=== PATIENT | female | born 1930 | race Caucasian/White ===

== ENCOUNTER 2017-09-02 02:48 | Observation (INO) | payer OTHER ==
[2017-09-02] MEDS ORDERED: MORPHINE 4 MG/ML SYR ONE (03:17)
[2017-09-02] MEDS ORDERED: NA CHLORIDE 0.9% 1,000 ML ONE (03:18)
[2017-09-02] MEDS ORDERED: ONDANSETRON 4 MG/2 ML VIAL ONE ×2 (03:18→09:39)
[2017-09-02 03:45] LABS: Absolute Lymphocytes (CBC) 1.8 K/uL (0.7-4.9); Absolute Monocytes 0.7 K/uL (0.1-1.3); Absolute Neutrophil 4.6 K/uL (1.8-8.0); Basophils % 0.9 % (0-1.3); Eosinophils % 2.1 % (0-4.4); Hematocrit 35.1 % (36.0-45.0); Lymphocytes % 23.8 % (15.3-44.8); MCH 29.9 pg (27.0-35.0); MPV 9.6 fL (7.6-11.3); Monocytes % 9.9 % (3.3-12.3); RBC Red Blood Cell Count 3.86 M/uL (3.86-4.86)
[2017-09-02 03:49] LABS: Potassium 3.8 mEq/L (3.6-5.0)
[2017-09-02] MEDS ORDERED: MEPERIDINE HCL 50 MG/ML AMP ONE (04:00)
--- NOTE | 2017-09-02 06:48 | ER ---
Nurse's Notes [facility] Name: Brenna Nelson Age: 87 yrs Sex: Female : 1930 Arrival Date: 09/02/2017 Time: 02:53 Bed 15 Private MD: Diagnosis: Intractable back pain Presentation: 09/02 02:50 Presenting complaint: EMS states: Pt complaining of lower back and lower extremity pain ea x 2 weeks. Pt reported she had called physician a few days ago and he diagnosed her with sciatica and gave her a prescription for the pain patient reported it worked for a little bit but today was intolerable and started getting worse. Transition of care: [facility]. Onset of symptoms was September 02, 2017. Initial Sepsis Screen: Does the patient meet any 2 criteria? No. Patient's initial sepsis screen is negative. Does the patient have a suspected source of infection? No. Patient's initial sepsis screen is negative. Care prior to arrival: None. 02:50 Method Of Arrival: EMS: [facility] ea 02:50 Acuity: MAURILIO 4 ea Triage Assessment: 02:50 General: Appears uncomfortable, Behavior is calm, cooperative, appropriate for age. ea Pain: Complains of pain in left lower back and right lower back Pain radiates to right leg and left leg Pain currently is 9 out of 10 on a pain scale. Quality of pain is described as aching. EENT: No signs and/or symptoms were reported regarding the EENT system. Neuro: Level of Consciousness is awake, alert, obeys commands, Oriented to person, place, time, situation. Cardiovascular: Patient's skin is warm and dry. Respiratory: Breath sounds are clear bilaterally. Respiratory: Airway is patent Respiratory effort is even, unlabored, Respiratory pattern is regular, symmetrical. GI: Abdomen is non-distended, Bowel sounds present X 4 quads. : No signs and/or symptoms were reported regarding the genitourinary system. Derm: Skin is pink, warm \T\ dry. Historical: - Allergies: 03:10 No Known Allergies; ea - Home Meds: 03:10 lisinopril 20 mg Oral tab 1 tab once daily [Active]; Myrbetriq 25 mg oral Tb24 1 tab ea once daily [Active]; gabapentin 100 mg oral cap 2 caps BID [Active]; famotidine 40 mg Oral tab 1 tab nightly [Active]; donepezil 10 mg oral tab 1 tab once daily [Active]; diclofenac sodium 25 mg oral TbEC 1 tab 2 times per day [Active]; - PMHx: 03:10 Hypertension; Irregular heart rate; ea - PSHx: 03:10 None; ea - Immunization history:: Adult Immunizations up to date. - Social history:: Smoking status: Patient/guardian denies using tobacco. Screenin:13 Abuse screen: Denies threats or abuse. Nutritional screening: No deficits noted. ea Tuberculosis screening: No symptoms or risk factors identified. Fall Risk None identified. Assessment: 03:31 Reassessment: Patient and/or family updated on plan of care and expected duration. Pain ea level reassessed. Patient is alert, oriented x 3, equal unlabored respirations, skin warm/dry/pink. Family at bedside. 03:35 Reassessment: RECD REPORT FROM [facility]. 87YO WF P/W BACK PAIN AND RECENT DX OF bp SCIATICA. PT HELD FOR MRI IN THE AM. VS STABLE ON MONITOR. 05:00 Reassessment: PT VS STABLE, NO ACUTE FINDINGS AT THIS TIME. bp 06:10 Reassessment: No changes from previously documented assessment. Patient and/or family bp updated on plan of care and expected duration. Pain level reassessed. Patient is alert, oriented x 3, equal unlabored respirations, skin warm/dry/pink. Patient denies pain at this time. 06:51 Reassessment: YOHANA PATINO, ADMIT PHYSICIAN, AT B/S. PT TBA FOR PAIN CONTROL AND IV bp MEDICATIONS. 07:21 Reassessment: Patient appears in no apparent distress at this time. Patient and/or hb family updated on plan of care and expected duration. Pain level reassessed. Pt resting with eyes closed, easily arouses to verbal stimuli. Admission ordered, awaiting room assignment at this time. 08:10 Reassessment: Patient appears in no apparent distress at this time. Patient and/or hb family updated on plan of care and expected duration. Pain level reassessed. Patient is alert, oriented x 3, equal unlabored respirations, skin warm/dry/pink. 08:49 Reassessment: Pt transported to MRI via wheelchair with tech. hb 09:00 Reassessment: see [facility] charting. hb Vital Signs: 02:50 BP 161 / 94; Pulse 71; Resp 18; Temp 98.3(O); Pulse Ox 98% on R/A; Weight 68.49 kg; ea Height 5 ft. 7 in. (170.18 cm); Pain 9/10; 03:40 BP 136 / 52; Pulse 60; Resp 16; Pulse Ox 98% ; bp 05:00 BP 104 / 51; Pulse 56; Resp 14; Pulse Ox 97% ; bp 06:11 BP 125 / 51; Pulse 56; Resp 14; Pulse Ox 96% ; bp 07:15 BP 115 / 47; Pulse 56; Resp 15; Pulse Ox 97% on R/A; hb 02:50 Body Mass Index 23.65 (68.49 kg, 170.18 cm) ea ED Course: 02:50 Patient has correct armband on for positive identification. Bed in low position. Call ea light in reach. Side rails up X2. 02:50 Arm band placed on right wrist. ea 02:53 Patient arrived in ED. rg2 02:53 Paul Guadalupe MD is Attending Physician. pkl 02:56 Alma Weiss RN is Primary Nurse. ea 02:59 Triage completed. ea 03:25 Inserted saline lock: 20 gauge in right forearm, using aseptic technique. Blood oe collected. 06:46 Barber Guadalupe MD is Hospitalizing Provider. pkl 09:06 Patient moved to MRI via wheelchair. lc 09:18 Patient moved back from MRI. lc 10:48 No provider procedures requiring assistance completed. Patient admitted, IV remains in hb place. Administered Medications: 03:30 Drug: NS 0.9% 1000 ml Route: IV; Rate: 100 ml/hr; Site: right forearm; ea 03:30 Drug: morphine 4 mg Route: IVP; Site: right forearm; ea 03:58 Follow up: Response: No adverse reaction; Pain is decreased bp 03:31 Drug: Zofran 4 mg Route: IVP; Site: right forearm; ea 03:58 Follow up: Response: No adverse reaction bp 04:00 Drug: Demerol 50 mg Route: IVP; Site: right forearm; bp 05:04 Follow up: Response: Pain is decreased bp Outcome: 06:47 Decision to Hospitalize by Provider. pkl 10:48 Admitted to Med/surg accompanied by nurse, family with patient, via stretcher, room hb 417, with chart, Report called to BETH Cadena 10:48 Condition: stable 10:48 Instructed on the need for admit, Demonstrated understanding of instructions. 10:49 Patient left the ED. Signatures: Lazaro Taylor rg2 Paul Guadalupe MD MD pkl Compean, Lorena lc Baxter, Heather, RN RN Tavo Cam Elena, RN RN Rickie Shafer RN RN bp
--- NOTE | 2017-09-02 06:48 | EDPHYS ---
Physician Documentation [facility] Name: Brenna Nelson Age: 87 yrs Sex: Female : 1930 Arrival Date: 09/02/2017 Time: 02:53 Bed 15 Private MD: ED Physician Paul Guadalupe HPI: 09/02 03:14 This 87 yrs old Female presents to ER via EMS with unknown complaint. pkl 03:14 The patient presents with pain that is acute. The symptoms are located in the low back. pkl Onset: The symptoms/episode began/occurred 2 week(s) ago, and became worse 2 day(s) ago. The pain radiates to the left leg and right leg. Historical: - Allergies: 03:10 No Known Allergies; ea - Home Meds: 03:10 lisinopril 20 mg Oral tab 1 tab once daily [Active]; Myrbetriq 25 mg oral Tb24 1 tab ea once daily [Active]; gabapentin 100 mg oral cap 2 caps BID [Active]; famotidine 40 mg Oral tab 1 tab nightly [Active]; donepezil 10 mg oral tab 1 tab once daily [Active]; diclofenac sodium 25 mg oral TbEC 1 tab 2 times per day [Active]; - PMHx: 03:10 Hypertension; Irregular heart rate; ea - PSHx: 03:10 None; ea - Immunization history:: Adult Immunizations up to date. - Social history:: Smoking status: Patient/guardian denies using tobacco. ROS: 03:14 Eyes: Negative for injury, pain, redness, and discharge, ENT: Negative for injury, pkl pain, and discharge, Neck: Negative for injury, pain, and swelling, Cardiovascular: Negative for chest pain, palpitations, and edema, Respiratory: Negative for shortness of breath, cough, wheezing, and pleuritic chest pain, Abdomen/GI: Negative for abdominal pain, nausea, vomiting, diarrhea, and constipation. 03:14 Back: Positive for pain at rest, of the lower back. 03:14 : Negative for urinary symptoms. 03:14 MS/extremity: Negative for acute changes. 03:14 Skin: Negative for rash. 03:14 Neuro: Negative for altered mental status. Exam: 03:14 Head/Face: Normocephalic, atraumatic. Eyes: Pupils equal round and reactive to light, pkl extra-ocular motions intact. Lids and lashes normal. Conjunctiva and sclera are non-icteric and not injected. Cornea within normal limits. Periorbital areas with no swelling, redness, or edema. ENT: Nares patent. No nasal discharge, no septal abnormalities noted. Tympanic membranes are normal and external auditory canals are clear. Oropharynx with no redness, swelling, or masses, exudates, or evidence of obstruction, uvula midline. Mucous membranes moist. Neck: Trachea midline, no thyromegaly or masses palpated, and no cervical lymphadenopathy. Supple, full range of motion without nuchal rigidity, or vertebral point tenderness. No Meningismus. Chest/axilla: Normal chest wall appearance and motion. Nontender with no deformity. No lesions are appreciated. Cardiovascular: Regular rate and rhythm with a normal S1 and S2. No gallops, murmurs, or rubs. Normal PMI, no JVD. No pulse deficits. Respiratory: Lungs have equal breath sounds bilaterally, clear to auscultation and percussion. No rales, rhonchi or wheezes noted. No increased work of breathing, no retractions or nasal flaring. Abdomen/GI: Soft, non-tender, with normal bowel sounds. No distension or tympany. No guarding or rebound. No evidence of tenderness throughout. 03:14 Back: pain, that is moderate, of the lower back, Straight leg raises: pain bilaterally. 03:14 : Exam negative for acute changes. 03:14 Musculoskeletal/extremity: Exam is negative for acute changes. 03:14 Skin: Exam negative for rash. 03:14 Neuro: Orientation: is normal, Mentation: is normal, Cranial nerves: grossly normal, Motor: is normal. Vital Signs: 02:50 BP 161 / 94; Pulse 71; Resp 18; Temp 98.3(O); Pulse Ox 98% on R/A; Weight 68.49 kg; ea Height 5 ft. 7 in. (170.18 cm); Pain 9/10; 03:40 BP 136 / 52; Pulse 60; Resp 16; Pulse Ox 98% ; bp 05:00 BP 104 / 51; Pulse 56; Resp 14; Pulse Ox 97% ; bp 06:11 BP 125 / 51; Pulse 56; Resp 14; Pulse Ox 96% ; bp 07:15 BP 115 / 47; Pulse 56; Resp 15; Pulse Ox 97% on R/A; hb 02:50 Body Mass Index 23.65 (68.49 kg, 170.18 cm) jorden MDM: 02:54 Patient medically screened. pkl 06:46 Data reviewed: vital signs, nurses notes, lab test result(s). pkl 09/02 03:12 Order name: CBC with Diff; Complete Time: 04:58 pkl 09/02 03:12 Order name: Chem 7; Complete Time: 03:51 pkl 09/02 10:45 Order name: MRI EDMS Administered Medications: 03:30 Drug: NS 0.9% 1000 ml Route: IV; Rate: 100 ml/hr; Site: right forearm; ea 03:30 Drug: morphine 4 mg Route: IVP; Site: right forearm; ea 03:58 Follow up: Response: No adverse reaction; Pain is decreased bp 03:31 Drug: Zofran 4 mg Route: IVP; Site: right forearm; ea 03:58 Follow up: Response: No adverse reaction bp 04:00 Drug: Demerol 50 mg Route: IVP; Site: right forearm; bp 05:04 Follow up: Response: Pain is decreased bp Disposition: 09/02/17 06:47 Hospitalization ordered by Barber Guadalupe for Observation. Preliminary diagnosis is Intractable back pain. - Bed requested for Telemetry/MedSurg (observation). - Status is Observation. hb - Condition is Stable. - Problem is new. - Symptoms have improved. UTI on Admission? No Signatures: Dispatcher [employer] EDVA LaliPeyton randall Paul Porter MD MD pkJennifer Mcginnis, BETH RN Alma Weiss RN RN Rickie Shafer RN RN bp Corrections: (The following items were deleted from the chart) 09:47 06:47 Hospitalization Ordered by Barber Guadalupe MD for Observation. Preliminary diagnosis bd is Intractable back pain. Bed requested for Telemetry/MedSurg (observation). Status is Observation. Condition is Stable. Problem is new. Symptoms have improved. UTI on Admission? No. pkl 10:49 09:47 09/02/2017 06:47 Hospitalization Ordered by Barber Guadalupe MD for Observation. hb Preliminary diagnosis is Intractable back pain. Bed requested for Telemetry/MedSurg (observation). Status is Observation. Condition is Stable. Problem is new. Symptoms have improved. UTI on Admission? No. bd
[2017-09-02] MEDS ORDERED: ONDANSETRON 4 MG/2 ML VIAL IV PRN (07:58)
[2017-09-02] MEDS ORDERED: MEPERIDINE HCL 25 MG/0.5 ML IV PRN (07:58)
[2017-09-02] MEDS: LISINOPRIL 20 MG TAB PO SCH (09:00)
[2017-09-02] MEDS: GABAPENTIN 300 MG CAP PO SCH ×2 (09:00→21:14)
[2017-09-02] MEDS: ENOXAPARIN 40 MG/0.4 ML SQ SCH (09:00)
[2017-09-02] MEDS: METHYLPREDNISOLONE 40 MG INJ IV SCH ×4 (09:00→23:51)
[2017-09-02] MEDS ORDERED: GABAPENTIN 300 MG CAP ONE (09:37)
[2017-09-02] MEDS ORDERED: MEPERIDINE HCL 25 MG/0.5 ML ONE (09:38)
[2017-09-02] MEDS ORDERED: LISINOPRIL 20 MG TAB ONE (09:38)
[2017-09-02] MEDS ORDERED: METHYLPREDNISOLONE 40 MG INJ ONE (09:39)
[2017-09-02] MEDS ORDERED: ENOXAPARIN 40 MG/0.4 ML SQ ONE (09:39)
[2017-09-02 09:52] VITALS: BMI 23.6
--- NOTE | 2017-09-02 10:45 | RAD REPORT ---
EXAM DESCRIPTION: MRI - Lumbar Spine [facility] - 09/02/2017 9:18 am CLINICAL HISTORY: Recent fall, back pain with bilateral lower extremity radiculopathy COMPARISON: None. TECHNIQUE: Sagittal T1-weighted, T2-weighted and T2-STIR weighted sequences were obtained. Axial T1 -weighted and heavily T2-weighted sequenceswere obtained through the lumbar disc levels. FINDINGS: No acute compression fracture changes are identified. Active degenerative marrow edema is present abutting the endplates at the L3-4 disc space. Schmorl's nodes are seen in the endplates at t his level. There is anterior subluxation of L3 on L4 measuring 5 mm. This is secondary to severe face t joint degenerative change. No pars defect identified at this level. Vertebral body alignment is oth erwise normal. No other significant or suspicious marrow pattern. No paraspinal masses. Conus is normal with no clumping or thickening of the cauda equina. T12-L1 level: Disc is desiccated. No other significant finding. L1-2 level: Minimal desiccation with no other significant finding. L2-3 level: Disc desiccation with no other significant finding. L3-4 level: Prominent pseudo bulge of disc material created by the L3 subluxation. Advanced facet sania nt degenerative changes are present and prominent ligamentous thickening seen. There is anterior and posterolateral encroachment the thecal sac. Spinal stenosis to 5 mm is present from these combined ef fects. Moderate L4 lateral recess stenosis also present. Disc bulge causes bilateral foraminal stenos is. Only a small amount of perineural fat is still present. L4-5 level: Disc desiccation without central canal herniation or significant disc bulge. Foraminal di sc bulge is mild. Facet degenerative changes and ligamentous thickening are present. No central spina l stenosis. Minimal L5 lateral recess stenosis. L5-S1 level: No disc bulge or herniation. Mild facet degenerative change. IMPRESSION: L3-4 spinal stenosis to 5 mm with L4 lateral recess stenosis and bilateral foraminal isabel nosis. L3-4 changes are secondary to severe facet joint degenerative change with resulting L3 subluxation al fauzia with prominent ligamentous thickening and bulging of disc material. Degenerative change elsewhere is minimal and does not cause any measurable canal or foramen stenosis.
[2017-09-02] MEDS ORDERED: TRAMADOL HCL 50 MG TAB PO PRN (11:13)
[2017-09-03 02:48] VITALS: O2SAT 96
[2017-09-03] MEDS: METHYLPREDNISOLONE 40 MG INJ IV SCH (06:11)
--- NOTE | 2017-09-03 07:43 | HP ---
Date of Admission: 09/02/2017 Chief Complaint: Back pain, leg pain. History Of Present Illness: Ms. Nelson is a very pleasant 87-year-old female patient who came to see me on 08/24/2017, with some complaints of lower back pain radiating to left leg and this has b een going on intermittently lately. No recent fall or injury. The patient was started on gabapentin for this lumbar radiculopathy problem 100 mg twice a day and earlier this week dose was increased to 200 mg twice a day because her pain was not improving. Last night, her pain got a lot worse with ba ck pain and bilateral leg pain radiating from lower back to the legs to the extent that she had diffi culty even walking, so she came in through emergency room. After she was evaluated in the ER, the ER physician contacted me early this morning, requesting admission to hospital. The patient initially received morphine in the emergency room, which did not help her at all. Subsequently, she received D emerol and that did help her to provide some pain relief, so when I saw her in the emergency room thi s morning, she was comfortable. Denies any tingling or numbness in legs. Allergies: NO KNOWN ALLERGIES. Medications: Caltrate plus D twice a day, diclofenac 25 mg 2 times a day as needed for back pain, do nepezil 10 mg daily, famotidine 40 mg daily, gabapentin 200 mg twice a day, lisinopril 20 mg daily, m ultivitamin daily, Myrbetriq 25 mg p.o. daily, Travatan eyedrops, fish oil, vitamin D, vitamin C, and vitamin E. Review of Systems: Musculoskeletal: As mentioned above. All other systems reviewed and negative. Past Medical History: Significant for lumbar radiculopathy, hypertension, hyperlipidemia, gastroesop hageal reflux disease, diverticulosis, osteoporosis, osteoarthritis at multiple sites. Past Surgical History: Hysterectomy, bladder suspension. Family History: Significant for cancer of esophagus. Social History: Negative for smoking or alcohol use. Physical Examination: Vital Signs: Temperature when she first came in 98.3, pulse 71, respiratory rate 18, blood pressure 161/94. Height 5 feet 7 inches, weight 150 pounds. General: Awake, alert, oriented, not in distress. HEENT: Head atraumatic, normocephalic. Conjunctivae nonerythematous. Sclerae white. Mouth, no thr ush or edema noted. Ears/Nose, no mass, lesion, discharge noted. Neck: Supple. No JVD, lymph nodes, bruit, thyromegaly noted. Lungs: Bilateral good equal air entry. Clear to auscultation. No rhonchi. No rales. Heart: Normal heart sounds, no murmur or gallop. Abdomen: Soft, bowel sounds normal. No guarding, rigidity, tenderness, mass, hepatosplenomegaly, dis tention, or bruit noted. Extremities: No leg edema. No calf tenderness. Skin: No rash, ulcer, cellulitis. Lymphatics: No lymph node enlargement in neck, supraclavicular, infraclavicular region. Neuro: Straight leg raising sign positive in left leg. Chest: Unremarkable. External Genitalia: Deferred. Rectal: Deferred. Laboratory Data: White count 7.3, hemoglobin 11.5, platelets 207. Sodium 139, potassium 3.8, chlori de 105, bicarb 27, BUN 20, creatinine 0.77, glucose 94. MRI of lumbosacral spine without contrast shows multiple area of bulging disk, degenerative joint dis ease, and spinal stenosis at L3-4 level, bilateral foraminal stenosis. Impression: 1.Lumbar spinal stenosis. 2.Lumbar radiculopathy. 3.Osteoarthritis on multiple sites. 4.Osteoporosis, senile. 5.Hypertension. 6.Hyperlipidemia. 7.Gastroesophageal reflux disease. Plan: Admit the patient to hospital for observation. We will go ahead and continue her antihyperten sive medication. Consult Physical Therapy to help ambulate the patient. Fall precaution was ordered . DVT prophylaxis was ordered using Lovenox. We will increase dose of gabapentin and give her 300 m g 2 times a day. Give pain medication per order. We will start her on IV steroid per order and I wi ll see her tomorrow for followup, possible discharge to go home tomorrow. I did call the patient's rodolfo traylor and discussed details with her about MRI results and my recommendation is that the patient sh ould consider outpatient physical therapy and she should get evaluation and recommendation from a delma may in [place] on outpatient basis and the patient's daughter was advised to take copy of MRI f ilm and result with her and my office will go ahead and facilitate referral process to see neurosurge on in [place] area. Possible discharge to go home tomorrow. JOSE/MODL Voice ID: [id number]
[2017-09-03 08:08] VITALS: BP 140/58; TEMP 98.3
[2017-09-03] MEDS: GABAPENTIN 300 MG CAP PO SCH (08:32)
[2017-09-03] MEDS: LISINOPRIL 20 MG TAB PO SCH (08:32)
[2017-09-03] MEDS: ENOXAPARIN 40 MG/0.4 ML SQ SCH (08:32)
--- NOTE | 2017-09-04 18:42 | DS ---
Date of Discharge: 09/03/2017 Disposition: Discharged to go home. Physical Examination: HEENT: Unremarkable. Lungs: Clear to auscultation. Heart: Sounds normal. Abdomen: Soft, bowel sounds normal. No guarding, rigidity, tenderness, or distention. Extremities: No leg edema. Discharge Medications: Continue all prior home medication except stop gabapentin 100 mg dose and sta rt gabapentin 300 mg by mouth 2 times a day and start prednisone 10 mg tablet, the patient to take 2 tablets daily for 4 days, then 1 tablet daily for 4 days, then half tablet daily for 4 days, then sto p. Followup: Follow up at my office in 2 weeks. Hospital Course: An 87-year-old female patient, admitted to the hospital with lower back pain as wel l as pain in her both legs. Please see dictated H and P for more information. The patient came into the emergency room yesterday. She was admitted to the hospital. She was started on IV steroid. MR I of the lumbosacral spine done yesterday and that showed significant degenerative joint disease invo lving lower lumbar spine region, along with that multiple bulging disks and lumbar spinal stenosis no liseth. Her condition has improved. She is ambulating well. Pain in her leg has resolved. Back pain has improved. This morning, when I saw her, she was feeling fine, had no complaints. Her 2 daughter s were present with her at bedside. I did explain it to the patient regarding her MRI results and re commended that she should follow up with neurosurgeon in [place] area on outpatient basis and she doug uld take her MRI film as well as report with her at the time of this appointment and my office emily goyal has initiated this referral process for her to go see Dr. Julio Olson. She was advised to avoid any unnecessary bending, twisting, or lifting any heavy objects. She was encouraged to use walker a ll the time while ambulating at the assisted care facility where she lives. We will also refer her f or outpatient physical therapy and all these details and plan of treatment discussed with the patient and her 2 daughters this morning. Final Diagnoses: 1.Lumbar spinal stenosis. 2.Lumbar radiculopathy. 3.Osteoarthritis, multiple sites. 4.Osteoporosis, senile. 5.Hypertension. 6.Hyperlipidemia. 7.Gastroesophageal reflux disease. JOSE/MODL Voice ID: [id number] Report ID: [id number]
== END 2017-09-03 08:57 | disposition home or self-care (01) ==
LOC: ER 02:48 → ERHOLD 07:27 → 4TH 10:20
PROVIDERS: ADMIT Internal Medicine; ATTEND Internal Medicine
DX: M48.061 Spinal stenosis, lumbar region without neurogenic claudication (principal); M54.16 Radiculopathy, lumbar region; M19.90 Unspecified osteoarthritis, unspecified site; M81.0 Age-related osteoporosis without current pathological fracture; I10 Essential (primary) hypertension; E78.5 Hyperlipidemia, unspecified; K21.9 Gastro-esophageal reflux disease without esophagitis
CPT/HCPCS: 36415; 72148; 80048; 85025; 96374; 96375; 97163; 99285; G0378 ×2; J1650 ×2; J2175 ×2; J2405 ×2; J2920 ×5; J7030

== ENCOUNTER 2018-02-04 10:49 | Observation (INO) | payer OTHER ==
--- OUTSIDE RECORDS SUMMARY | 2018-02-04 11:15 | XMS REPORT | Clinical Summary ---
:1930 Author Organization [facility] Address [address] [place] [address] Care Team Providers Name Role Phone Asked, No Pcp Primary Care Provider Unavailable Allergies No Known Allergies Current Medications Prescription Sig. Disp. Refills Start Date End Date Status mirabegron 25 mg Take by mouth. Active tablet extended release 24 hr lisinopril Take 20 mg by Active (PRINIVIL,ZESTRIL) 20 mouth daily. mg tablet memantine (NAMENDA) 5 Take 5 mg by Active MG tablet mouth 2 (two) times a day. donepezil (ARICEPT) Take 10 mg by Active 10 MG tablet mouth nightly. gabapentin Take 300 mg by Active (NEURONTIN) 300 mg mouth 3 (three) capsule times a day. timolol (TIMOPTIC) 1 drop 2 (two) 10/15/2017 Active 0.5 % ophthalmic times a day. solution dexamethasone Take 1 tablet 7 tablet 0 10/16/2017 10/23/2017 (DECADRON) 0.75 MG (0.75 mg total) tablet by mouth daily with breakfast for 7 days. acetaminophen-codeine Take 1-2 tablets 60 tablet 0 10/16/2017 11/15/2017 (TYLENOL WITH CODEINE by mouth every 4 #3) 300-30 mg per (four) hours as tablet needed (pain) for up to 30 days. Active Problems Problem Noted Date S/P lumbar laminectomy 10/15/2017 Encounters Date Type Specialty Care Team Description 10/15/2017 - Hospital Encounter Neurosurgery Whitney S/P lumbar laminectomy ; 10/16/2017 Julio Morrell MD Lumbar stenosis with neurogenic claudication 10/15/2017 Anesthesia Event General Surgery Mary Zaidi MD 10/15/2017 Ancillary Orders Radiology Whitney S/Dameon lumbar Julio Morrell MD laminectomy 10/15/2017 Procedure Pass General Surgery 10/15/2017 Surgery General Surgery Whitney, LUMBAR LAMINECTOMY Julio Morrell MD FOR NERVE ROOT AND CAUDA EQUINA DECOMPRESSION BILATERAL L3-L4 10/05/2017 Pre-Admit Testing Pre-Admission Whitney, Preoperative testing Appointment Testing Julio Morrell MD (Primary Dx) after 02/03/2017 Social History Tobacco Use Types Packs/Day Years Used Date Never Smoker Smokeless Tobacco: Never Used Alcohol Use Drinks/Week oz/Week Comments No Sex Assigned at Date Recorded Not on file Last Filed Vital Signs Vital Sign Reading Time Taken Blood Pressure 112/62 10/16/2017 7:58 AM CDT Pulse 56 10/16/2017 7:58 AM CDT Temperature 36.4 C (97.6 F) 10/16/2017 7:58 AM CDT Respiratory Rate 17 10/16/2017 7:58 AM CDT Oxygen Saturation 94% 10/16/2017 7:58 AM CDT Inhaled Oxygen Concentration - - Weight 82.1 kg (181 lb) 10/15/2017 9:09 AM CDT Height 167.6 cm (5' 6") 10/15/2017 9:09 AM CDT Body Mass Index 29.21 10/15/2017 9:09 AM CDT Plan of Treatment Health Maintenance Due Date Last Done Comments SHINGRIX VACCINE (#1) 1982 ZOSTER VACCINE 1992 PNEUMOCOCCAL POLYSACCHARIDE VACCINE AGE 65 AND OVER 1997 PNEUMOCOCCAL-13 1997 INFLUENZA VACCINE 11/25/2017 Procedures Procedure Name Priority Date/Time Associated Diagnosis Comments SURGICAL PATHOLOGY Routine 10/15/2017 3:00 Results for this REQUEST PM CDT procedure are in the results section. LAMINECTOMY, LUMBAR 10/15/2017 2:00 Lumbar stenosis with PM CDT neurogenic claudication Case Notes "PATIENT COMING FROM ALF, ? NAME", POSSIBLE EXTENDED STAY Special Needs "PATIENT COMING FROM ALF, ? NAME", POSSIBLE EXTENDED STAY XR LUMBAR SPINE 1 VW Routine 10/15/2017 1:24 PM S/P lumbar Results for this CDT laminectomy procedure are in the results section. XR LUMBAR SPINE 1 VW Routine 10/15/2017 1:10 PM S/P lumbar Results for this CDT laminectomy procedure are in the results section. RI AN ELECTIVE Routine 10/15/2017 12:55 PM ENDOTRACHEAL AIRWAY CDT Procedure Note - Mary Zaidi MD - 10/15/2017 12:55 PM CDT Airway Date/Time: 10/15/2017 12:33 PM Performed by: MARY ZAIDI Authorized by: MARY ZAIDI Location: OR Urgency: Elective Difficult Airway: No Preoxygenated with 100% O2: Yes C-spine Precautions Maintained Throughout: No Mask Ventilation: Easy mask Final Airway Type: Endotracheal airway Final Endotracheal Airway: ETT Cuffed: Yes Technique Used: Direct laryngoscopy Devices/Methods Used in Placement: Intubating stylet Insertion Site: Oral Blade Type: Ibanez Laryngoscope Blade/Videolaryngoscope Blade Size: 2 ETT Size (mm): 6.5 Cuff at minimum occlusion pressure: Yes Measured from: Teeth ETT to Teeth (cm): 21 Placement Verified by: CO2 detection, direct visualization and equal breath sounds Laryngoscopic view: Grade I - full view of glottis Rapid Sequence Induction (RSI): No Modified RSI: No Number of Attempts at Approach: 1 Lips and teeth unchanged, soft bite block ECG PRE/POST OP Routine 10/05/2017 12:33 PM Preoperative testing Results for this CDT procedure are in the results section. ZZESTIMATED GFR Routine 10/05/2017 12:09 PM Results for this CDT procedure are in the results section. CBC HEMOGRAM Routine 10/05/2017 12:09 PM Preoperative testing Results for this CDT procedure are in the results section. BASIC METABOLIC Routine 10/05/2017 12:09 PM Preoperative testing Results for this PANEL CDT procedure are in the results section. after 02/03/2017 Results Surgical pathology request (10/15/2017 3:00 PM) [facility] DEPARTMENT OF PATHOLOGY AND GENOMIC MEDICINE Surgical pathology report See link below for PDF [facility] DEPARTMENT OF Lab Report PATHOLOGY AND GENOMIC MEDICINE Result status This is Final Report to [facility] DEPARTMENT OF [id number] PATHOLOGY AND GENOMIC MEDICINE Performing Organization Address City/State/Zipcode Phone Number [facility] DEPARTMENT OF PATHOLOGY AND [address] [place] [address] GENOMIC MEDICINE XR Lumbar Spine 1 Vw (10/15/2017 1:24 PM)Only the most recent of2 resultswithin the time period is included. Narrative Performed At EXAMINATION: XR LUMBAR SPINE 1 VW [facility] CLINICAL HISTORY: Z98.890 Other specified postprocedural states COMPARISON:1303 hours same date IMPRESSION: Single lateral intraoperative radiograph in bone and soft tissue filters demonstrates posterior approach surgical instruments centered at the L3-L4 level. [id number] Procedure Note Interface, Radiology Results Incoming - 10/15/2017 4:32 PM CDT EXAMINATION: XR LUMBAR SPINE 1 VW CLINICAL HISTORY: Z98.890 Other specified postprocedural states COMPARISON: 1303 hours same date IMPRESSION: Single lateral intraoperative radiograph in bone and soft tissue filters demonstrates posterior approach surgical instruments centered at the L3-L4 level. [id number] Performing Organization Address [facility] Phone Number [facility] [address] [place] [address] ECG Pre/Post Op (10/05/2017 12:33 PM) Ventricular rate 51 [facility] MUSE Atrial rate 51 [facility] MUSE RI interval 206 [facility] MUSE QRSD interval 84 [facility] MUSE QT interval 456 [facility] MUSE QTC interval 420 [facility] MUSE P axis 1 77 [facility] MUSE QRS axis 1 24 [facility] MUSE T wave axis 29 [facility] MUSE EKG impression Sinus bradycardia with premature atrial [facility] MUSE complexes-Nonspecific ST abnormality-Abnormal ECG-No previous ECGs available- Performing Organization Address [facility] Phone Number [facility] [address] [place] [address] Estimated GFR (10/05/2017 12:09 PM) GFR Non Af Amer 68 mL/min/1.73 m2 [facility] DEPARTMENT OF PATHOLOGY AND GENOMIC MEDICINE GFR Af Amer 83 mL/min/1.73 m2 [facility] DEPARTMENT OF Comment: PATHOLOGY AND GENOMIC Chronic kidney disease: <60 mL/min/1.73m2 MEDICINE Kidney failure: <15 mL/min/1.73m2 The estimated GFR is calculated from the IDMS-traceable Modification of Diet in Renal Disease Equation. The accuracy of the calculation is poor when the creatinine is normal. Calculated values >90 mL/min/1.73m2 are not reported. This equation has not been validated in children (<18 years), women, the elderly (>70 years), or ethnic groups other than Caucasians and Americans. Specimen Plasma specimen Performing Organization Address [facility]/State/Zipcode Phone Number [facility] DEPARTMENT OF PATHOLOGY AND [address] [place] [phone] [employer] [facility] CBC hemogram (10/05/2017 12:09 PM) WBC 5.24 4.50 - 11.00 k/uL [facility] DEPARTMENT OF PATHOLOGY AND GENOMIC MEDICINE RBC 4.02 (L) 4.20 - 5.50 m/uL [facility] DEPARTMENT OF PATHOLOGY AND GENOMIC MEDICINE HGB 12.3 12.0 - 16.0 g/dL [facility] DEPARTMENT OF PATHOLOGY AND GENOMIC MEDICINE HCT 37.4 37.0 - 47.0 % [facility] DEPARTMENT OF PATHOLOGY AND GENOMIC MEDICINE MCV 93.0 82.0 - 100.0 fL [facility] DEPARTMENT OF PATHOLOGY AND GENOMIC MEDICINE MCH 30.6 27.0 - 34.0 pg [facility] DEPARTMENT OF PATHOLOGY AND GENOMIC MEDICINE MCHC 32.9 31.0 - 37.0 g/dL [facility] DEPARTMENT OF PATHOLOGY AND GENOMIC MEDICINE RDW - SD 46.9 37.0 - 55.0 fL [facility] DEPARTMENT OF PATHOLOGY AND GENOMIC MEDICINE MPV 11.0 8.8 - 13.2 fL [facility] DEPARTMENT OF PATHOLOGY AND GENOMIC MEDICINE Platelet count 189 150 - 400 k/uL [facility] DEPARTMENT OF PATHOLOGY AND GENOMIC MEDICINE Nucleated RBC 0.00 /100 WBC [facility] DEPARTMENT OF PATHOLOGY AND GENOMIC MEDICINE Specimen Blood Performing Organization Address City/State/[facility] Phone Number [facility] DEPARTMENT OF PATHOLOGY AND [address] [place] [phone] [employer] Basic metabolic panel (10/05/2017 12:09 PM) Sodium 142 135 - 148 mEq/L [facility] DEPARTMENT OF PATHOLOGY AND GENOMIC MEDICINE Potassium 3.9 3.5 - 5.0 mEq/L [facility] DEPARTMENT OF PATHOLOGY AND GENOMIC MEDICINE Chloride 103 98 - 112 mEq/L [facility] DEPARTMENT OF PATHOLOGY AND GENOMIC MEDICINE CO2 27 24 - 31 mEq/L [facility] DEPARTMENT OF PATHOLOGY AND GENOMIC MEDICINE Anion gap 12@ANIO 7 - 15 mEq/L [facility] DEPARTMENT OF PATHOLOGY AND GENOMIC MEDICINE BUN 17 8 - 23 mg/dL [facility] DEPARTMENT OF PATHOLOGY AND GENOMIC MEDICINE Creatinine 0.8 0.5 - 0.9 mg/dL [facility] DEPARTMENT OF PATHOLOGY AND GENOMIC MEDICINE Glucose 75 65 - 99 mg/dL [facility] DEPARTMENT OF PATHOLOGY AND GENOMIC MEDICINE Calcium 9.0 8.8 - 10.2 mg/dL [facility] DEPARTMENT OF PATHOLOGY AND GENOMIC MEDICINE Specimen Plasma specimen Performing Organization Address City/[facility] Phone Number [facility] DEPARTMENT OF PATHOLOGY AND [address] [place] [phone] GENOMIC MEDICINE after 02/03/2017 Insurance Payer Benefit Plan / Group Subscriber ID Type Phone Address HUMANA HUMANA HMO/POS/EPO/OPEN ACCESS xxxxxxxxx HMO HUMANA MEDICARE HUMANA MEDICARE PPO/PFFS/ERS MCR xxxxxxxxx PPO [phone] [id number] [place] [address]
[2018-02-04] MEDS ORDERED: ACETAMINOPHEN 500 MG TAB PO PRN (11:32)
[2018-02-04] MEDS ORDERED: GUAIFENESIN/DM 5 ML UCUP PO PRN (11:32)
[2018-02-04 12:25] LABS: Absolute Lymphocytes (CBC) 0.6 K/uL (0.7-4.9); Absolute Monocytes 0.7 K/uL (0.1-1.3); Absolute Neutrophil 7.7 K/uL (1.8-8.0); Basophils % 0.5 % (0-1.3); Eosinophils % 0.7 % (0-4.4); Hematocrit 39.9 % (36.0-45.0); Lymphocytes % 6.8 % (15.3-44.8); MCH 31.2 pg (27.0-35.0); MCV 90.3 fL (80-100); MPV 8.9 fL (7.6-11.3); Monocytes % 8.1 % (3.3-12.3); RBC Red Blood Cell Count 4.41 M/uL (3.86-4.86)
[2018-02-04 12:40] LABS: Albumin 3.2 g/dL (3.4-5.0); Bilirubin Total 0.7 mg/dL (0.2-1.0); Potassium 3.9 mmol/L (3.5-5.1); Protein, Total 6.7 g/dL (6.4-8.2)
--- NOTE | 2018-02-04 12:48 | RAD REPORT ---
EXAM DESCRIPTION: RAD - Chest Single View - 02/04/2018 12:38 pm CLINICAL HISTORY: Pneumonia COMPARISON: December 2016 TECHNIQUE: AP portable chest image was obtained 1222 hour . FINDINGS: Lungs are fibrotic similar to comparison. No superimposed failure, infiltrate or mass. Hea rt and vasculature are normal. No measurable pleural effusion and no pneumothorax. No acute bony abno rmality seen. No acute aortic findings suspected. IMPRESSION: Stable fibrotic lung pattern from 1 year earlier. No acute finding seen.
[2018-02-04] MEDS: NA CHLORIDE 0.9% 1,000 ML IV SCH (12:49)
[2018-02-04] MEDS: CEFTRIAXONE/SWI 1gm 1 GM/10 ML SYR IV SCH (12:49)
[2018-02-04 12:52] VITALS: BMI 23.6
[2018-02-04] MEDS ORDERED: CEFTRIAXONE 1 GM/NS 50 ML 1 GM/50 ML BAG IV SCH (13:00)
[2018-02-04 13:22] VITALS: O2SAT 99
[2018-02-04] MEDS: ALBUTEROL 2.5 MG/3 ML NEB SOL NEB SCH ×2 (13:56→20:00)
[2018-02-04] MEDS ORDERED: POTASSIUM CL SA 10 MEQ TAB PO ONE (14:00)
[2018-02-04] MEDS: AZITHROMYCIN IV 500 MG in NA CHLORIDE 0.9% 250 ML IVPB SCH (14:28)
[2018-02-04] MEDS ORDERED: ENOXAPARIN 40 MG/0.4 ML SQ SCH (17:00)
--- NOTE | 2018-02-04 20:28 | RAD REPORT ---
EXAM DESCRIPTION: CT - Thorax Wo Con - 02/04/2018 6:18 pm CLINICAL HISTORY: Pneumonia COMPARISON: Chest film February 04 TECHNIQUE: Axial 5 mm thick images of the chest were obtained without IV contrast. All CT scans are performed using dose optimization technique as appropriate and may include automated exposure control or mA/KV adjustment according to patient size. FINDINGS: Posterior right apex scarring changes are present. No airspace consolidations seen. Minima l interstitial stranding is present in the lower lung herrera. No endobronchial lesion. There is some minimal bronchial wall thickening present. No pleural thickening or pleural effusion. No pneumothorax . No abnormal mediastinal or hilar masses or lymphadenopathy seen. Granulomatous calcifications are pre sent. No acute aortic or pulmonary artery finding suspected on noncontrast imaging. No pericardial th ickening or effusion. No chest wall mass or abnormal axillary lymphadenopathy. IMPRESSION: Scattered interstitial fibrotic changes are present. No large mass and no consolidation to suspect bacterial pneumonia. Patient has fibrotic lung pattern that was not significantly different on plain film. The lung base i nterstitial and bronchial changes could represent a mild viral infiltrate.
[2018-02-05] MEDS: CEFTRIAXONE/SWI 1gm 1 GM/10 ML SYR IV SCH ×2 (01:33→09:00)
[2018-02-05] MEDS: NA CHLORIDE 0.9% 1,000 ML IV SCH ×2 (01:34→10:21)
[2018-02-05] MEDS: ALBUTEROL 2.5 MG/3 ML NEB SOL NEB SCH ×3 (02:20→14:08)
--- NOTE | 2018-02-05 05:27 | HP ---
Date of Admission: 02/04/2018 Chief Complaint: Fever, chills, cough, congestion. History Of Present Illness: This is an 87-year-old female patient who came in to see me day before yesterday with 3 days history of cough, sore throat. She had nonproductive cough at that time. After she was examined, she was diagnosed as having acute pharyngitis and she was sent home with amoxicillin. Today, she came into office with her daughter, feeling much worse. She was having fever, chills, feeling very weak, dizzy, not steady on her feet and has been coughing up yellowish greenish colored thick mucus. No vomiting. No diarrhea. When I saw her today, her initial systolic blood pressure was low with 86 systolic, diastolic 60. Her heart rate was 105. The patient was evaluated and admitted to the hospital as I am concerned about pneumonia with possibility of dehydration and we need to rule out possibility of sepsis. The patient was placed in wheelchair and family was advised to bring her to the hospital for direct admission. Allergies: NO KNOWN ALLERGIES. Medications: Amoxicillin 500 mg p.o. 3 times a day, donepezil 10 mg p.o. daily , duloxetine 20 mg daily, famotidine 40 mg daily, lisinopril 20 mg daily, Namenda 5 mg 2 times a day, Myrbetriq 50 mg p.o. daily. Review of Systems: Constitutional: As mentioned above. Respiratory: As mentioned above. All other systems reviewed and negative. Family History: Significant for esophageal cancer. Social History: Negative for smoking and alcohol use. Past Surgical History: Significant for lumbar spinal stenosis surgery done October 15, 2017, bladder prolapse surgery, and hysterectomy. Past Medical History: Depression, hypertension, hyperlipidemia, osteoarthritis , gastroesophageal reflux disease, osteoporosis, diverticulosis. Physical Examination: Vital Signs: At office, blood pressure 86/60, pulse 105, respiratory rate 15, temperature 97.6, weight 155 pounds. General: The patient appears weaker than normal, not in any distress. HEENT: Head atraumatic, normocephalic. Conjunctivae nonerythematous. Sclerae white. Mouth, presence of pharyngeal redness. Ears/Nose, no mass, lesion, discharge noted. Neck: Supple. No JVD, lymph nodes, bruit, thyromegaly noted. Lungs: Bilateral good equal air entry. Presence of some scattered rales in lower lung herrera. Not in any respiratory distress. Heart: Normal heart sounds, no murmur or gallop. Abdomen: Soft, bowel sounds normal. No guarding, rigidity, tenderness, mass, hepatosplenomegaly, distention, or bruit noted. Extremities: No leg edema. No calf tenderness. Skin: No rash, ulcer, cellulitis. Lymphatics: No lymph node enlargement in neck, supraclavicular, infraclavicular region. Neuro: No focal neurological deficit. Chest: Unremarkable. External Genitalia: Deferred. Rectal: Deferred. Laboratory Data: White count 9.1, hemoglobin 13.8, platelets 172. Sodium 137, potassium 3.9, chloride 101, bicarb 29, BUN 14, creatinine 0.90, glucose 89. Liver function tests unremarkable. Procalcitonin less than 0.05. Chest x-ray shows fibrotic lung pattern. CAT scan of the chest done without contrast showing scattered interstitial fibrotic changes, no consolidation. Impression: 1. Pneumonia. 2. Hypertension. 3. Volume depletion. 4. Hyperlipidemia. 5. Osteoporosis. 6. Osteoarthritis, multiple sites. 7. Gastroesophageal reflux disease. 8. Depression. Plan: Admit the patient to hospital for further evaluation and management of this problem. We will go ahead and continue home medications per order. Start patient on IV antibiotic, which is ceftriaxone and Zithromax. Nebulizer treatment will be given. DVT prophylaxis will be given per order. I will see her tomorrow for followup. Details and plan of treatment discussed with her and her family, which is daughter. JOSE/BRYAN Voice ID: [id number] MTDD
[2018-02-05] MEDS: AZITHROMYCIN IV 500 MG in NA CHLORIDE 0.9% 250 ML IVPB SCH ×2 (10:21→10:22)
[2018-02-05 14:10] VITALS: BP 116/63; TEMP 98.8
--- NOTE | 2018-02-06 06:31 | DS ---
Date of Discharge: 02/05/2018 Disposition: Discharged to go home. Physical Examination: HEENT: Unremarkable. Lungs: Clear to auscultation. Heart: Sounds normal. Abdomen: Soft. Bowel sounds normal. No guarding, rigidity, tenderness, or distention. Extremities: No leg edema. Discharge Medications And Instructions: 1.Continue all prior home medication except stop amoxicillin and start cefuroxime 250 mg p.o. b.i.d. for 1 week and Zithromax 250 mg p.o. daily for 5 days. 2.Follow up at my office per her scheduled appointment on February 25, 2018, at 1:30 p.m. Hospital Course: An 87-year-old female patient who was admitted to the hospital after she was evalua liseth at office yesterday. Please see dictated H and P for more information. The patient was diagnose d as having acute pharyngitis 02/02/2018, and she was started on amoxicillin. She started to take th is medication. Her condition worsened. Symptoms got worse; and when I saw her on 02/02, she just madera d some cough and sore throat type of feeling; and when I saw her yesterday when she came back feeling worse, she was having fever and chills. Her blood pressure was low. Systolic blood pressure at off ice was 86, and she was feeling very weak. After she was evaluated, I was concerned about possibilit y of pneumonia, and she was admitted to the hospital. She was also coughing up yellow- to green-colo red mucus now. Sputum culture was ordered. Blood culture was ordered. Routine labs were unremarkab le. Chest x-ray did not show any definite pneumonia, but fibrotic changes noted. CAT scan of the est without contrast also did not show any consolidation or any other concerning finding. The patien t was started on IV Rocephin and IV Zithromax. Overall, her condition has improved significantly ove rnight. IV fluid was given. This morning when I saw her, she was feeling much better. She looked a lot better. Hemodynamically, she is stable, and decision was made to discharge her to go home in st able condition with above-mentioned medications and instructions. Details were discussed with the vanessa roach's daughter on the phone as well regarding findings of the test results as well as discharge med ications. Final Diagnoses: 1.Acute bronchitis, rule out pneumonia. 2.Hypertension. 3.Volume depletion. 4.Hyperlipidemia. 5.Osteoporosis. 6.Osteoarthritis, multiple sites. 7.Gastroesophageal reflux disease. 8.Depression. JOSE/BRYAN Voice ID: [id number] Report ID: [id number]
== END 2018-02-05 16:09 | disposition home or self-care (01) ==
LOC: INTOOBSV 11:11 → 4TH 11:11
PROVIDERS: ADMIT Internal Medicine; ATTEND Internal Medicine
DX: J20.9 Acute bronchitis, unspecified (principal); I10 Essential (primary) hypertension; E86.9 Volume depletion, unspecified; E78.5 Hyperlipidemia, unspecified; M81.0 Age-related osteoporosis without current pathological fracture; M19.90 Unspecified osteoarthritis, unspecified site; K21.9 Gastro-esophageal reflux disease without esophagitis; F32.9 Major depressive disorder, single episode, unspecified
CPT/HCPCS: 36415; 71045; 71250; 80053; 83605; 84145; 85025; 87040; 94640; G0378; G0379; J0456; J0696 ×3; J1650; J7030 ×3

== ENCOUNTER 2018-04-26 21:38 | Emergency (ER) | payer OTHER ==
--- OUTSIDE RECORDS SUMMARY | 2018-04-26 21:40 | XMS REPORT | Clinical Summary ---
:1930 Author Organization [facility] Address [address] [place] [address] Care Team Providers Name Role Phone Asked, No Pcp Primary Care Provider Unavailable Allergies No Known Allergies Medications Medication Sig Dispensed Refills Start Date End Date Status mirabegron 25 mg Take by mouth. 0 Active tablet extended release 24 hr lisinopril Take 20 mg by 0 Active (PRINIVIL,ZESTRIL) 20 mouth daily. mg tablet memantine (NAMENDA) 5 Take 5 mg by 0 Active MG tablet mouth 2 (two) times a day. donepezil (ARICEPT) Take 10 mg by 0 Active 10 MG tablet mouth nightly. gabapentin Take 300 mg by 0 Active (NEURONTIN) 300 mg mouth 3 (three) capsule times a day. timolol (TIMOPTIC) 1 drop 2 (two) 0 10/15/2017 Active 0.5 % ophthalmic times a [...] Date Type Specialty Care Team Description 10/15/2017 Surgery General Surgery Whitney, LUMBAR LAMINECTOMY Julio Morrell MD FOR NERVE ROOT AND CAUDA EQUINA DECOMPRESSION BILATERAL L3-L4 10/15/2017 Anesthesia Event General Surgery Mary Zaidi MD 10/15/2017 - Hospital Encounter Neurosurgery Whitney, S/P lumbar laminectomy ; 10/16/2017 Julio Morrell MD Lumbar stenosis with neurogenic claudication 10/05/2017 Pre-Admit Testing Pre-Admission Whitney, Preoperative testing Appointment Testing Julio Morrell MD (Primary Dx) after 04/25/2017 Social History Tobacco Use Types Packs/Day Years Used Date Never Smoker Smokeless Tobacco: Never Used Alcohol Use Drinks/Week oz/Week Comments No Sex Assigned at Date Recorded Not on file Job Start Date Occupation Industry Not on file Not on file Not on file Travel History Travel Start Travel End No recent travel history available. Last Filed Vital Signs Vital Sign Reading [...] Health Maintenance Due Date Last Done Comments SHINGLES VACCINES (1 of 2) 1982 PNEUMOCOCCAL POLYSACCHARIDE VACCINE AGE 65 AND OVER 1997 PNEUMOCOCCAL-13 1997 INFLUENZA VACCINE 11/25/2017 Procedures Procedure Name Priority Date/Time Associated Diagnosis Comments SURGICAL PATHOLOGY Routine 10/15/2017 3:00 Results for this REQUEST PM CDT procedure are in the results section. LAMINECTOMY, LUMBAR 10/15/2017 2:00 Lumbar stenosis with PM CDT neurogenic claudication Case Notes "PATIENT COMING FROM SKILLED NURSING, ? NAME", POSSIBLE EXTENDED STAY Special Needs "PATIENT COMING FROM SKILLED NURSING, ? NAME", POSSIBLE EXTENDED STAY XR LUMBAR SPINE 1 VW Routine 10/15/2017 1:24 PM S/P lumbar Results for this CDT laminectomy procedure are in the results section. XR LUMBAR SPINE 1 VW Routine 10/15/2017 1:10 PM S/P lumbar Results for this CDT laminectomy procedure are in the results section. AK AN ELECTIVE Routine 10/15/2017 12:55 PM ENDOTRACHEAL [...] procedure are in the results section. after 04/25/2017 Results Surgical pathology request (10/15/2017 3:00 PM CDT) [facility] DEPARTMENT OF PATHOLOGY AND GENOMIC MEDICINE Surgical pathology report See link below for PDF [facility] DEPARTMENT OF Lab Report PATHOLOGY AND GENOMIC MEDICINE Result status This is Final Report to [facility] DEPARTMENT OF [id number] PATHOLOGY AND GENOMIC MEDICINE Performing Organization Address City/State/Zipcode Phone Number [facility] DEPARTMENT OF PATHOLOGY AND [address] [place] [address] [facility] MEDICINE XR Lumbar Spine 1 Vw (10/15/2017 1:24 PM CDT)Only the most recent of2 resultswithin the time period is included. Narrative Performed At EXAMINATION: XR LUMBAR SPINE 1 VW [facility] CLINICAL HISTORY: Z98.890 Other specified postprocedural states COMPARISON:1303 hours same date IMPRESSION: Single lateral intraoperative radiograph in bone and soft tissue filters demonstrates posterior approach surgical instruments centered at the L3-L4 level. [id number] Procedure Note Hm Interface, Radiology Results Incoming - 10/15/2017 4:32 PM CDT EXAMINATION: XR LUMBAR SPINE 1 VW CLINICAL HISTORY: Z98.890 Other specified postprocedural states COMPARISON: 1303 hours same date IMPRESSION: Single lateral intraoperative radiograph in bone and soft tissue filters demonstrates posterior approach surgical instruments centered at the L3-L4 level. [id number] Performing Organization Address [facility] Phone Number [facility] [address] [place] [address] ECG Pre/Post Op (10/05/2017 12:33 PM CDT) Ventricular rate 51 [facility] Atrial rate 51 [facility] AK interval 206 [facility] QRSD interval 84 [facility] QT interval 456 [facility] QTC interval 420 [facility] P axis 1 77 [facility] QRS axis 1 24 [facility] T wave axis 29 [facility] MUSE EKG impression Sinus bradycardia with premature atrial [facility] MUSE complexes-Nonspecific ST abnormality-Abnormal ECG-No previous ECGs available- Performing Organization Address [facility] Phone Number [facility] MUSE [address] [place] [address] Estimated GFR (10/05/2017 12:09 PM CDT) GFR Non Af Amer 68 mL/min/1.73 m2 [facility] DEPARTMENT OF PATHOLOGY AND GENOMIC MEDICINE GFR Af Amer 83 mL/min/1.73 m2 [facility] DEPARTMENT OF Comment: PATHOLOGY AND GENOMIC Chronic [...] Americans. Specimen Plasma specimen Performing Organization Address [facility]/State/Zipcode Phone Number [facility] DEPARTMENT OF PATHOLOGY AND [address] [place] [id number] [employer] CBC hemogram (10/05/2017 12:09 PM CDT) WBC 5.24 4.50 - 11.00 k/uL [facility] DEPARTMENT OF PATHOLOGY AND GENOMIC MEDICINE RBC 4.02 (L) 4.20 - 5.50 m/uL [facility] DEPARTMENT OF PATHOLOGY AND GENOMIC MEDICINE HGB 12.3 12.0 - 16.0 g/dL [facility] DEPARTMENT OF PATHOLOGY AND GENOMIC MEDICINE HCT 37.4 37.0 - 47.0 % [facility] DEPARTMENT OF PATHOLOGY AND GENOMIC MEDICINE MCV 93.0 82.0 - 100.0 fL [facility] DEPARTMENT OF PATHOLOGY AND GENOMIC MEDICINE MCH 30.6 27.0 - 34.0 pg [facility] DEPARTMENT OF PATHOLOGY AND GENOMIC MEDICINE MCHC 32.9 31.0 - 37.0 g/dL [facility] DEPARTMENT OF PATHOLOGY AND GENOMIC MEDICINE RDW - SD 46.9 37.0 - 55.0 fL [facility] DEPARTMENT OF PATHOLOGY AND GENOMIC MEDICINE MPV 11.0 8.8 - 13.2 fL [facility] DEPARTMENT OF PATHOLOGY AND GENOMIC MEDICINE Platelet count 189 150 - 400 k/uL [facility] DEPARTMENT OF PATHOLOGY AND GENOMIC MEDICINE Nucleated RBC 0.00 /100 WBC [facility] DEPARTMENT OF PATHOLOGY AND GENOMIC MEDICINE Specimen Blood Performing Organization Address City/[facility]/Zipcode Phone Number [facility] DEPARTMENT OF PATHOLOGY AND [address] [place] [phone] [facility] MEDICINE Basic metabolic panel (10/05/2017 12:09 PM CDT) Sodium 142 135 - 148 mEq/L [facility] DEPARTMENT OF PATHOLOGY AND GENOMIC MEDICINE Potassium 3.9 3.5 - 5.0 mEq/L [facility] DEPARTMENT OF PATHOLOGY AND GENOMIC MEDICINE Chloride 103 98 - 112 mEq/L [facility] DEPARTMENT OF PATHOLOGY AND GENOMIC MEDICINE CO2 27 24 - 31 mEq/L [facility] DEPARTMENT OF PATHOLOGY AND GENOMIC MEDICINE Anion gap 12@ANIO 7 - 15 mEq/L [facility] DEPARTMENT OF PATHOLOGY AND GENOMIC MEDICINE BUN 17 8 - 23 mg/dL [facility] DEPARTMENT OF PATHOLOGY AND GENOMIC MEDICINE Creatinine 0.8 0.5 - 0.9 mg/dL [facility] DEPARTMENT OF PATHOLOGY AND GENOMIC MEDICINE Glucose 75 65 - 99 mg/dL [facility] DEPARTMENT OF PATHOLOGY AND GENOMIC MEDICINE Calcium 9.0 8.8 - 10.2 mg/dL [facility] DEPARTMENT OF PATHOLOGY AND GENOMIC MEDICINE Specimen Plasma specimen Performing Organization Address City/State/Zipcode Phone Number [facility] DEPARTMENT OF PATHOLOGY AND [address] [place] [address] GENOMIC MEDICINE after 04/25/2017 Insurance Payer Benefit Plan / Group Subscriber ID Type Phone Address HUMANA HUMANA HMO/POS/EPO/OPEN ACCESS xxxxxxxxx HMO HUMANA MEDICARE HUMANA MEDICARE PPO/PFFS/ERS MCR xxxxxxxxx PPO (Home) [id number] [place] [address] Advance Directives Patient has advance care planning documents on file. For more information, please contact:Kush Eller[address] [place] [address]
[2018-04-26] MEDS ORDERED: ENALAPRILAT 1.25 MG/ML VIAL IV ONE (22:43)
[2018-04-26] MEDS ORDERED: NA CHLORIDE 0.9% 50 ML IV ONE (22:47)
[2018-04-26] MEDS ORDERED: ACETAMINOPHEN 500 MG TAB ONE (23:16)
[2018-04-27 00:44] LABS: Protime INR 0.96
[2018-04-27 00:48] LABS: Absolute Lymphocytes (CBC) 1.7 K/uL (0.7-4.9); Absolute Monocytes 0.6 K/uL (0.1-1.3); Basophils % 1.1 % (0-1.3); Eosinophils % 2.4 % (0-4.4); Hematocrit 35.2 % (36.0-45.0); Lymphocytes % 30.6 % (15.3-44.8); MPV 9.4 fL (7.6-11.3); Monocytes % 10.6 % (3.3-12.3); RBC Red Blood Cell Count 3.83 M/uL (3.86-4.86)
[2018-04-27 01:00] LABS: Albumin 3.1 g/dL (3.4-5.0); Bilirubin Direct 0.1 mg/dL (0-0.2); Bilirubin Total 0.3 mg/dL (0.2-1.0); Potassium 3.9 mmol/L (3.5-5.1)
[2018-04-27 01:02] LABS: NT PRO-BNP 886 pg/mL (<450); Troponin (Emerg Dept Use Only) < 0.02 ng/mL (0.0-0.045)
--- NOTE | 2018-04-27 01:47 | ER ---
Nurse's Notes [facility] Name: Brenna Nelson Age: 87 yrs Sex: Female : 1930 Arrival Date: 04/26/2018 Time: 21:41 Bed 25 Private MD: Cathi Guadalupe C Diagnosis: Hypertensive Urgency Presentation: 04/26 21:43 Presenting complaint: Daughter states that the pt called her with complaints of fc headache and high bp of 188/80. Also having right arm pain. Denies any nausea or vomiting. Transition of care: [facility]. Onset of symptoms was April 26, 2018 at 20:00. Risk Assessment: Do you want to hurt yourself or someone else? Patient reports no desire to harm self or others. Initial Sepsis Screen: Does the patient meet any 2 criteria? No. Patient's initial sepsis screen is negative. Does the patient have a suspected source of infection? No. Patient's initial sepsis screen is negative. Care prior to arrival: None. 21:43 Method Of Arrival: Ambulatory 21:43 Acuity: MAURILIO 3 fc Triage Assessment: 23:13 Headache History: The patient has had previous headaches and this one is similar to tl3 previous episodes. General: Appears uncomfortable. Pain: Also complains of. Pain: Pain currently is 8 out of 10 on a pain scale. Pain began gradually. Historical: - Allergies: 22:04 No Known Allergies; fc - Home Meds: 22:04 Myrbetriq 25 mg Oral Tb24 1 tab once daily [Active]; lisinopril 20 mg oral tab 1 tab fc once daily [Active]; memantine 5 mg oral tab 2 times per day [Active]; donepezil 10 mg Oral tab 1 tab nightly [Active]; gabapentin 300 mg oral cap 1 cap twice a day [Active]; Jeff 1 cap twice a day [Active]; - PMHx: 22:04 Hypertension; Irregular heart rate; Dementia; fc - PSHx: 22:04 back; fc - Immunization history:: Last tetanus immunization: up to date Flu vaccine is up to date. - Social history:: Smoking status: Patient/guardian denies using tobacco, Patient/guardian denies using alcohol, street drugs. - Ebola Screening: : Patient negative for fever greater than or equal to 101.5 degrees Fahrenheit, and additional compatible Ebola Virus Disease symptoms Patient denies exposure to infectious person Patient denies travel to an Ebola-affected area in the 21 days before illness onset. Screenin:00 Abuse screen: Denies threats or abuse. Nutritional screening: No deficits noted. fc Tuberculosis screening: No symptoms or risk factors identified. Fall Risk No fall in past 12 months (0 pts). Secondary diagnosis (15 points) dementia, No IV (0 pts). Ambulatory Aid- Crutches/Cane/Walker (15 pts). Gait- Weak (10 pts.). Mental Status- Overestimates/Forgets Limitations (15 pts.). Total Velasquez Fall Scale indicates High Risk Score (45 or more points). Fall prevention measures have been instituted. Side Rails Up X 2 Placed Close to Nursing Station Frequent Obs/Assessments Occuring Family Present and informed to notify staff if the need to leave the bedside As available patient and family educated on Fall Prevention Program and Strategies. Assessment: 22:27 General: Appears in no apparent distress. slender, well groomed, well developed, well tl3 nourished, Behavior is calm, cooperative, appropriate for age. Pain: Complains of pain in top of head. Neuro: Level of Consciousness is awake, alert, obeys commands, Oriented to person, place, time, situation, Appropriate for age. Cardiovascular: Patient's skin is warm and dry. Cardiovascular: Rhythm is regular. Cardiovascular: Reports headache with high blood pressure. Respiratory: Airway is patent Respiratory effort is even, unlabored, Respiratory pattern is regular, symmetrical. GI: No signs and/or symptoms were reported involving the gastrointestinal system. : No signs and/or symptoms were reported regarding the genitourinary system. EENT: No signs and/or symptoms were reported regarding the EENT system. Derm: No signs and/or symptoms reported regarding the dermatologic system. Musculoskeletal: No signs and/or symptoms reported regarding the musculoskeletal system. 23:12 Reassessment: Patient appears in no apparent distress at this time. No changes from tl3 previously documented assessment. Patient and/or family updated on plan of care and expected duration. Pain level reassessed. Patient is alert, oriented x 3, equal unlabored respirations, skin warm/dry/pink. c/o headache, tylenol administered. Vital Signs: 21:43 BP 214 / 87; Pulse 69; Resp 18; Temp 97.8(O); Pulse Ox 98% on R/A; Weight 68.95 kg (R); fc Height 5 ft. 5 in. (165.10 cm) (R); Pain 6/10; 22:27 BP 196 / 76; Pulse 54; Resp 18; Pulse Ox 98% on R/A; tl3 23:12 BP 201 / 78; Pulse 58; Resp 18; Pulse Ox 98% on R/A; tl3 23:48 BP 172 / 68; Pulse 60; Resp 18; Pulse Ox 95% ; tl3 01 00:31 BP 174 / 87; Pulse 58; Resp 18; Pulse Ox 96% on R/A; Pain 0/10; mg2 01:32 BP 167 / 90; Pulse 60; Resp 18; Pulse Ox 96% on R/A; Pain 0/10; mg2 02:01 BP 167 / 89; Pulse 61; Resp 18; Pulse Ox 100% on R/A; Pain 0/10; mg2 04/26 21:43 Body Mass Index 25.29 (68.95 kg, 165.10 cm) fc ED Course: 04/26 21:41 Patient arrived in ED. am2 21:42 Cathi Guadalupe MD is Private Physician. am2 21:43 Arm band placed on Patient placed in an exam room, on a stretcher. fc 21:43 Patient has correct armband on for positive identification. Placed in gown. Bed in low fc position. Call light in reach. Side rails up X2. quality assurance monitor chassis on. Pulse ox on. NIBP on. 21:44 [facility]. jr8 21:44 Blanco Latham MD is Attending Physician. jr8 21:59 Triage completed. fc 22:[address] sj 22:17 XRAY Chest (1 view) In Process Unspecified. EDMS 22:27 CT completed. Patient tolerated procedure well. Patient moved back from CT. vm2 22:27 Bia Candelaria, BETH is Primary Nurse. tl3 22:27 No provider procedures requiring assistance completed. EKG done, by ED staff, X-ray(s) tl3 taken. Initial lab(s) drawn, by nd, sent to lab. Inserted saline lock: 22 gauge in left forearm, using aseptic technique. Blood collected. 22:31 CT Head Brain wo Cont In Process Unspecified. EDMS 22:31 CT Head Brain wo Cont Sent. tl3 04/27 01:46 Cathi Guadalupe MD is Referral Physician. jr8 02:02 IV discontinued, intact, bleeding controlled, No redness/swelling at site. Pressure mg2 dressing applied. Administered Medications: 04/26 22:45 Drug: Enalaprilat 1.25 mg Route: IV; Rate: calculated rate; Site: left forearm; tl3 Delivery: Primary tubing; 23:11 Follow up: IV Status: Completed infusion; IV Intake: 10ml tl3 23:11 Drug: Tylenol 1000 mg Route: PO; tl3 04/27 00:21 Follow up: Response: No adverse reaction; Pain is decreased mg2 Intake: 04/26 23:11 IV: 10ml; Total: 10ml. tl3 Outcome: 04/27 01:46 Discharge ordered by . jr8 02:02 Discharged to home via wheelchair, with family. mg2 02:02 Condition: stable 02:02 Discharge instructions given to patient, family, Instructed on discharge instructions, follow up and referral plans. medication usage, Demonstrated understanding of instructions, follow-up care, medications. 02:03 Patient left the ED. mg2 Signatures: Dispatcher [employer] EDOH Mya Hart Felicia RN RN Zane Isaacs PA PA jr8 Elva Woods [place] vm2 Bia Candelaria RN RN tl3 Harshal Crawford RN RN mg2 Corrections: (The following items were deleted from the chart) 04/26 22:01 22:00 Fall Risk None identified. [facility]
--- NOTE | 2018-04-27 01:47 | EDPHYS ---
Physician Documentation [facility] Name: Brenna Nelson Age: 87 yrs Sex: Female : 1930 Arrival Date: 04/26/2018 Time: 21:41 Bed 25 Private MD: Cathi Guadalupe C ED Physician Blanco Latham HPI: 04/26 23:01 This 87 yrs old Female presents to ER via Ambulatory with complaints of High jr8 Blood Pressure, Headache, Arm Pain. 23:01 The patient has elevated blood pressure and discovered this at home. Onset: The jr8 symptoms/episode began/occurred acutely, today. Associated signs and symptoms: Pertinent positives: headache, Pertinent negatives: chest pain, dizziness, dyspnea, lightheadedness, nausea, visual changes, vomiting, weakness. Severity of symptoms: At its worst the blood pressure was moderate, in the emergency department the blood pressure is unchanged. The patient has not experienced similar symptoms in the past. The patient has not recently seen a physician. Patient with known hypertension but has been well controlled for years. Stated that she had a headache today that will come and go. Family checked her BP and noticed it to be markedly elevated from where it usually is. Came to ED at that time for further evaluation . Historical: - Allergies: 22:04 No Known Allergies; fc - Home Meds: 22:04 Myrbetriq 25 mg Oral Tb24 1 tab once daily [Active]; lisinopril 20 mg oral tab 1 tab fc once daily [Active]; memantine 5 mg oral tab 2 times per day [Active]; donepezil 10 mg Oral tab 1 tab nightly [Active]; gabapentin 300 mg oral cap 1 cap twice a day [Active]; Jeff 1 cap twice a day [Active]; - PMHx: 22:04 Hypertension; Irregular heart rate; Dementia; fc - PSHx: 22:04 back; fc - Immunization history:: Last tetanus immunization: up to date Flu vaccine is up to date. - Social history:: Smoking status: Patient/guardian denies using tobacco, Patient/guardian denies using alcohol, street drugs. - Ebola Screening: : Patient negative for fever greater than or equal to 101.5 degrees Fahrenheit, and additional compatible Ebola Virus Disease symptoms Patient denies exposure to infectious person Patient denies travel to an Ebola-affected area in the 21 days before illness onset. ROS: 23:01 Eyes: Negative for injury, pain, redness, and discharge, ENT: Negative for injury, jr8 pain, and discharge, Neck: Negative for injury, pain, and swelling, Cardiovascular: Negative for chest pain, palpitations, and edema, Respiratory: Negative for shortness of breath, cough, wheezing, and pleuritic chest pain, Abdomen/GI: Negative for abdominal pain, nausea, vomiting, diarrhea, and constipation, Back: Negative for injury and pain, MS/Extremity: Negative for injury and deformity, Skin: Negative for injury, rash, and discoloration. 23:01 Neuro: Positive for headache, Negative for altered mental status, dizziness, gait disturbance, hearing loss, loss of consciousness, numbness, seizure activity, speech changes, syncope, near syncope, tingling, tinnitus, tremor, visual changes, weakness. Exam: 23:05 Eyes: Pupils equal round and reactive to light, extra-ocular motions intact. Lids and jr8 lashes normal. Conjunctiva and sclera are non-icteric and not injected. Cornea within normal limits. Periorbital areas with no swelling, redness, or edema. ENT: Nares patent. No nasal discharge, no septal abnormalities noted. Tympanic membranes are normal and external auditory canals are clear. Oropharynx with no redness, swelling, or masses, exudates, or evidence of obstruction, uvula midline. Mucous membranes moist. Neck: Trachea midline, no thyromegaly or masses palpated, and no cervical lymphadenopathy. Supple, full range of motion without nuchal rigidity, or vertebral point tenderness. No Meningismus. Cardiovascular: Regular rate and rhythm with a normal S1 and S2. No gallops, murmurs, or rubs. Normal PMI, no JVD. No pulse deficits. Respiratory: Lungs have equal breath sounds bilaterally, clear to auscultation and percussion. No rales, rhonchi or wheezes noted. No increased work of breathing, no retractions or nasal flaring. Abdomen/GI: Soft, non-tender, with normal bowel sounds. No distension or tympany. No guarding or rebound. No evidence of tenderness throughout. Back: No spinal tenderness. No costovertebral tenderness. Full range of motion. Skin: Warm, dry with normal turgor. Normal color with no rashes, no lesions, and no evidence of cellulitis. MS/ Extremity: Pulses equal, no cyanosis. Neurovascular intact. Full, normal range of motion. Neuro: Awake and alert, GCS 15, oriented to person, place, time, and situation. Cranial nerves II-XII grossly intact. Motor strength 5/5 in all extremities. Sensory grossly intact. Cerebellar exam normal. Normal gait. Vital Signs: 21:43 BP 214 / 87; Pulse 69; Resp 18; Temp 97.8(O); Pulse Ox 98% on R/A; Weight 68.95 kg (R); fc Height 5 ft. 5 in. (165.10 cm) (R); Pain 6/10; 22:27 BP 196 / 76; Pulse 54; Resp 18; Pulse Ox 98% on R/A; tl3 23:12 BP 201 / 78; Pulse 58; Resp 18; Pulse Ox 98% on R/A; tl3 23:48 BP 172 / 68; Pulse 60; Resp 18; Pulse Ox 95% ; tl3 04/27 00:31 BP 174 / 87; Pulse 58; Resp 18; Pulse Ox 96% on R/A; Pain 0/10; mg2 01:32 BP 167 / 90; Pulse 60; Resp 18; Pulse Ox 96% on R/A; Pain 0/10; mg2 02:01 BP 167 / 89; Pulse 61; Resp 18; Pulse Ox 100% on R/A; Pain 0/10; mg2 04/26 21:43 Body Mass Index 25.29 (68.95 kg, 165.10 cm) fc MDM: 04/26 21:44 Patient medically screened. [facility] 04/27 01:45 Data reviewed: vital signs, nurses notes, lab test result(s), EKG, radiologic studies, [facility] CT scan, plain films, and as a result, I will discharge patient. Data interpreted: Pulse oximetry: on room air is 96 %. Interpretation: normal. Counseling: I had a detailed discussion with the patient and/or guardian regarding: the historical points, exam findings, and any diagnostic results supporting the discharge/admit diagnosis, lab results, radiology results, the need for outpatient follow up, a family practitioner, to return to the emergency department if symptoms worsen or persist or if there are any questions or concerns that arise at home. Response to treatment: the patient's symptoms have resolved after treatment. 04/26 22:06 Order name: Basic Metabolic Panel; Complete Time: 01:31 04/26 22:06 Order name: CBC with Diff; Complete Time: 00:57 04/26 22:06 Order name: LFT's; Complete Time: :31 04/26 22:06 Order name: Magnesium; Complete Time: 01:31 04/26 22:06 Order name: NT PRO-BNP; Complete Time: :31 04/26 22:06 Order name: PT-INR; Complete Time: 00:46 04/26 22:06 Order name: Troponin (emerg Dept Use Only); Complete Time: :31 04/26 22:06 Order name: XRAY Chest (1 view) 04/26 22:06 Order name: EKG; Complete Time: 22:07 04/26 22:06 Order name: Cardiac monitoring; Complete Time: :04/26 22:06 Order name: EKG - Nurse/Tech; Complete Time: :04/26 22:06 Order name: CT Head Brain wo Cont 04/26 22:06 Order name: IV Saline Lock; Complete Time: :04/26 22:06 Order name: Labs collected and sent; Complete Time: :04/26 22:06 Order name: O2 Per Protocol; Complete Time: :04/26 22:06 Order name: O2 Sat Monitoring; Complete Time: 23:40 8 Administered Medications: 04/26 22:45 Drug: Enalaprilat 1.25 mg Route: IV; Rate: calculated rate; Site: left forearm; tl3 Delivery: Primary tubing; 23:11 Follow up: IV Status: Completed infusion; IV Intake: 10ml tl3 23:11 Drug: Tylenol 1000 mg Route: PO; tl3 04/27 00:21 Follow up: Response: No adverse reaction; Pain is decreased mg2 Disposition: 03:54 Co-signature as Attending Physician, Blanco Latham MD. Disposition: 04/27/18 01:46 Discharged to Home. Impression: Hypertensive Urgency . - Condition is Stable. - Discharge Instructions: Hypertension. - Medication Reconciliation Form, Thank You Letter, Antibiotic Education, Prescription Opioid Use form. - Follow up: Cathi Guadalupe MD; When: 1 - 2 days; Reason: Recheck today's complaints, Continuance of care, Re-evaluation by your physician. - Problem is new. - Symptoms have improved. - Notes: Start Lisinopril 40mg once a day Signatures: Dispatcher [employer] EDMS Genet Roy RN RN Zane Isaacs PA PA jr8 Blanco Latham MD MD Bia Candelaria RN RN tl3 Harshal Crawford RN RN mg2 Corrections: (The following items were deleted from the chart) 02:03 01:46 04/27/2018 01:46 Discharged to Home. Impression: Hypertensive Urgency . Condition mg2 is Stable. Forms are Medication Reconciliation Form, Thank You Letter, Antibiotic Education, Prescription Opioid Use. Follow up: Cathi Guadalupe; When: 1 - 2 days; Reason: Recheck today's complaints, Continuance of care, Re-evaluation by your physician. Problem is new. Symptoms have improved. jr8
[2018-04-27 02:21] VITALS: TEMP 97.8
[2018-04-27 02:29] VITALS: BP 167/89; O2SAT 100
--- NOTE | 2018-04-27 08:08 | RAD REPORT ---
EXAM DESCRIPTION: RAD - Chest Single View - 04/26/2018 10:17 pm CLINICAL HISTORY: Hypertension, chest pain COMPARISON: February 04 TECHNIQUE: AP portable chest image was obtained 2212 hours . FINDINGS: No focal mass or consolidation. Lung markings are prominent, increased slightly from jagjit rison. Heart and vasculature are normal. No measurable pleural effusion and no pneumothorax. No acute bony abnormality seen. No acute aortic findings suspected. IMPRESSION: No focal consolidation or mass. Increased interstitial markings likely reflecting a mild interstitial edema or infiltrate.
--- NOTE | 2018-04-27 08:28 | RAD REPORT ---
EXAM DESCRIPTION: CT - Head Brain Wo Cont - 04/27/2018 7:25 am CLINICAL HISTORY: Headache, hypertension A preliminary report was provided at the time of the study and reviewed prior to final report. COMPARISON: CT head January 2017 TECHNIQUE: Axial 5 mm thick images of the head were obtained without IV contrast. All CT scans are performed using dose optimization technique as appropriate and may include automated exposure control or mA/KV adjustment according to patient size. FINDINGS: No intracranial hemorrhage, mass, edema or shift of mid-line structures. No acute infarcti on changes seen. No cortical edema or sulcal effacement. Atrophy changes are relatively mild for age. Ventricles are in proportion to volume loss. Moderate chronic ischemic changes are present. Mastoid air cells and visualized portions of the paranasal sinuses are clear. No acute bony findings. IMPRESSION: Negative noncontrast head examination for acute finding. Mild atrophy and moderate chronic ischemic changes are present similar to January 2017.
--- NOTE | 2018-04-27 08:45 | EKG ---
Test Date: 2018-04-26 Test Time: 22:00:14 Pulp House Supervisor: TL MEASUREMENT RESULTS: Intervals: Rate: 57 AL: 170 QRSD: 80 QT: 450 QTc: 438 [place]: P: 62 AL: 170 QRS: -13 T: 56 INTERPRETIVE STATEMENTS: Sinus bradycardia with premature supraventricular complexes Otherwise normal ECG Compared to ECG 01/21/2017 22:53:04 Atrial premature complex(es) now present Sinus arrhythmia no longer present ST (T wave) deviation no longer present Electronically Signed On 04-27-18 08:45:10 BOTTOM PRESSER by Cecil Benson
== END 2018-04-27 02:03 | disposition home or self-care (01) ==
LOC: ER 21:38
DX: I16.0 Hypertensive urgency (principal); F03.90 Unspecified dementia, unspecified severity, without behavioral disturbance, psychotic disturbance, mood disturbance, and anxiety
CPT/HCPCS: 36415; 70450; 71045; 80048; 80076; 83735; 83880; 84484; 85025; 85610; 93005; 96365; 99285

== ENCOUNTER 2018-05-08 09:16 | Emergency (ER) | payer OTHER ==
--- OUTSIDE RECORDS SUMMARY | 2018-05-08 09:17 | XMS REPORT | Clinical Summary ---
:1930 Author Organization [facility] Address [address] [place] [address] Care Team Providers Name Role Phone Unavailable Primary Care Provider Unavailable Allergies Active Allergy Reactions Severity Noted Date Comments Brimonidine Tartrate 10/18/2014 Codeine Phosphate 08/04/2011 Medications Medication Sig Dispensed Refills Start Date End Date Status MYRBETRIQ 25 mg Tb24 ER Take 25 mg by 1 04/21/2018 Active tablet mouth daily. lisinopril Take 20 mg by 0 Active (PRINIVIL,ZESTRIL) 20 mouth. MG tablet memantine (NAMENDA) 5 Take 5 mg by 4 04/14/2018 Active MG tablet mouth 2 (two) times daily. donepezil (ARICEPT) 10 Take 10 mg by 3 04/20/2018 Active MG tablet mouth. gabapentin (NEURONTIN) Take 300 mg by 0 Active 300 MG capsule mouth. Hospital, Clinic, or Other Ordered Dose Route Frequency Start Date End Date Status Facility Administered Medication dexamethasone (DECADRON) 4 mg IAtc Once 05/05/2018 05/05/2018 Ended injection 4 mg lidocaine (XYLOCAINE) 1 mL IAtc Once 05/05/2018 05/05/2018 Ended injection 2% bupivacaine 0.25 % (2.5 2.5 mg IAtc Once 05/05/2018 05/05/2018 Ended mg/mL) injection 2.5 mg dexamethasone (DECADRON) 4 mg IAtc Once 05/05/2018 05/05/2018 Ended injection 4 mg lidocaine (XYLOCAINE) 1 mL IAtc Once 05/05/2018 05/05/2018 Ended injection 2% bupivacaine 0.25 % (2.5 2.5 mg IAtc Once 05/05/2018 05/05/2018 Ended mg/mL) injection 2.5 mg Active Problems Problem Noted Date S/P lumbar laminectomy 10/15/2017 POAG (primary open-angle glaucoma) 06/05/2014 Glaucoma 08/04/2011 Primary open-angle glaucoma(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 Never 05/05/2018 How many drinks containing alcohol do you have on a typical Not asked day when you are drinking? How often do you have six or more drinks on one occasion? Not asked Sex Assigned at Date Recorded Not on file Job Start Date Occupation Industry Not on file Not on file Not on file Travel History Travel Start Travel End No recent travel history available. Last Filed Vital Signs Vital Sign Reading Time Taken Blood Pressure 174/65 05/05/2018 2:08 PM [facility] Pulse 70 05/05/2018 2:08 PM [employer] Temperature - - Respiratory Rate - - Oxygen Saturation - - Inhaled Oxygen Concentration - - Weight 69.4 kg (153 lb) 05/05/2018 2:08 PM [employer]ORSESHOER Height 165.1 cm (5' 5") 05/05/2018 2:08 PM [employer]ORSESHOER Body Mass Index 25.46 05/05/2018 2:08 PM HORSESHOER Plan of Treatment Date Type Specialty Care Team Description 05/24/2018 Office Visit Orthopedic Surgery Kevin Mcknight [address] [facility] [address] [place] [address] [phone] 06/11/2018 Office Visit Orthopedic Surgery Kevin Mcknight [address] [facility] [address] [place] [address] [phone] Results Not on fileafter 05/07/2017 Insurance Payer Benefit Plan / Group Subscriber ID Type Phone Address HUMANA - MGD CARE HUMANA PPO SELECT ASO xxxxxxxxx PPO
--- OUTSIDE RECORDS SUMMARY | 2018-05-08 09:17 | XMS REPORT | Clinical Summary ---
:1930 Author Organization [facility] Address [address] [place] [address] Care Team Providers Name Role Phone Asked, [...] Testing Julio Morrell MD (Primary Dx) after 05/07/2017 Social History Tobacco Use Types Packs/Day Years [...] neurogenic claudication Case Notes "PATIENT COMING FROM [place], ? NAME", POSSIBLE EXTENDED STAY Special Needs "PATIENT COMING FROM [place], ? NAME", POSSIBLE EXTENDED STAY XR LUMBAR SPINE 1 VW Routine 10/15/2017 1:24 PM S/P lumbar Results for this CDT laminectomy procedure are in the results section. XR LUMBAR SPINE 1 VW Routine 10/15/2017 1:10 PM S/P lumbar Results for this CDT laminectomy procedure are in the results section. NH AN ELECTIVE Routine 10/15/2017 12:55 PM ENDOTRACHEAL [...] procedure are in the results section. after 05/07/2017 Results Surgical pathology request (10/15/2017 3:00 PM CDT) [facility] DEPARTMENT OF PATHOLOGY AND GENOMIC MEDICINE Surgical pathology report See link below for PDF [facility] DEPARTMENT OF Lab Report PATHOLOGY AND GENOMIC MEDICINE Result status This is Final Report to [facility] DEPARTMENT OF [id number] PATHOLOGY AND GENOMIC MEDICINE Performing Organization Address City/State/Zipcode Phone Number [facility] DEPARTMENT OF PATHOLOGY AND [address] [place] [address] [employer] MEDICINE XR Lumbar Spine 1 Vw (10/15/2017 1:24 PM CDT)Only the most recent of2 resultswithin the time period is included. Narrative Performed At EXAMINATION: XR LUMBAR SPINE 1 VW [facility] CLINICAL HISTORY: Z98.890 Other specified postprocedural states COMPARISON:1303 hours same date IMPRESSION: Single lateral intraoperative radiograph in bone and soft tissue filters demonstrates posterior approach surgical instruments centered at the L3-L4 level. [id number] Procedure Note Hm Interface, Radiology Results Incoming - 10/15/2017 4:32 PM CDT EXAMINATION: XR LUMBAR SPINE 1 VW CLINICAL HISTORY: Z98.890 Other specified postprocedural states COMPARISON: 1303 hours same date IMPRESSION: Single lateral intraoperative radiograph in bone and soft tissue filters demonstrates posterior approach surgical instruments centered at the L3-L4 level. [id number] Performing Organization Address [facility] Phone Number [facility] [address] [place] [address] ECG Pre/Post Op (10/05/2017 12:33 PM CDT) Ventricular rate 51 [facility] Atrial rate 51 [facility] NH interval 206 [facility] QRSD interval 84 [facility] QT interval 456 [facility] QTC interval 420 [facility] P axis 1 77 [facility] QRS axis 1 24 [facility] T wave axis 29 [facility] MUSE EKG impression Sinus bradycardia with premature atrial [facility] MUSE complexes-Nonspecific ST abnormality-Abnormal ECG-No previous ECGs available- Performing Organization Address [facility] Phone Number [facility] MUSE [address] [place] [address] Estimated GFR (10/05/2017 12:09 PM CDT) GFR Non Af Amer 68 mL/min/1.73 m2 [facility] DEPARTMENT OF PATHOLOGY AND GENOMIC MEDICINE GFR Af Amer 83 mL/min/1.73 m2 [facility] DEPARTMENT OF Comment: PATHOLOGY AND GENOMIC Chronic [...] Americans. Specimen Plasma specimen Performing Organization Address [facility]/State/Zipcode Phone Number [facility] DEPARTMENT OF PATHOLOGY AND [address] [place] [phone] [facility] CBC hemogram (10/05/2017 12:09 PM CDT) WBC 5.24 4.50 - 11.00 k/uL [facility] DEPARTMENT OF PATHOLOGY AND GENOMIC MEDICINE RBC 4.02 (L) 4.20 - 5.50 m/uL [facility] DEPARTMENT OF PATHOLOGY AND GENOMIC MEDICINE HGB 12.3 12.0 - 16.0 g/dL [facility] DEPARTMENT OF PATHOLOGY AND GENOMIC MEDICINE HCT 37.4 37.0 - 47.0 % [facility] DEPARTMENT OF PATHOLOGY AND GENOMIC MEDICINE MCV 93.0 82.0 - 100.0 fL [facility] DEPARTMENT OF PATHOLOGY AND GENOMIC MEDICINE MCH 30.6 27.0 - 34.0 pg [facility] DEPARTMENT OF PATHOLOGY AND GENOMIC MEDICINE MCHC 32.9 31.0 - 37.0 g/dL [facility] DEPARTMENT OF PATHOLOGY AND GENOMIC MEDICINE RDW - SD 46.9 37.0 - 55.0 fL [facility] DEPARTMENT OF PATHOLOGY AND GENOMIC MEDICINE MPV 11.0 8.8 - 13.2 fL [facility] DEPARTMENT OF PATHOLOGY AND GENOMIC MEDICINE Platelet count 189 150 - 400 k/uL [facility] DEPARTMENT OF PATHOLOGY AND GENOMIC MEDICINE Nucleated RBC 0.00 /100 WBC [facility] DEPARTMENT OF PATHOLOGY AND GENOMIC MEDICINE Specimen Blood Performing Organization Address City/[facility]/Zipcode Phone Number [facility] DEPARTMENT OF PATHOLOGY AND [address] [place] [phone] [employer] MEDICINE Basic metabolic panel (10/05/2017 12:09 PM CDT) Sodium 142 135 - 148 mEq/L [facility] DEPARTMENT OF PATHOLOGY AND GENOMIC MEDICINE Potassium 3.9 3.5 - 5.0 mEq/L [facility] DEPARTMENT OF PATHOLOGY AND GENOMIC MEDICINE Chloride 103 98 - 112 mEq/L [facility] DEPARTMENT OF PATHOLOGY AND GENOMIC MEDICINE CO2 27 24 - 31 mEq/L [facility] DEPARTMENT OF PATHOLOGY AND GENOMIC MEDICINE Anion gap 12@ANIO 7 - 15 mEq/L [facility] DEPARTMENT OF PATHOLOGY AND GENOMIC MEDICINE BUN 17 8 - 23 mg/dL [facility] DEPARTMENT OF PATHOLOGY AND GENOMIC MEDICINE Creatinine 0.8 0.5 - 0.9 mg/dL [facility] DEPARTMENT OF PATHOLOGY AND GENOMIC MEDICINE Glucose 75 65 - 99 mg/dL [facility] DEPARTMENT OF PATHOLOGY AND GENOMIC MEDICINE Calcium 9.0 8.8 - 10.2 mg/dL [facility] DEPARTMENT OF PATHOLOGY AND GENOMIC MEDICINE Specimen Plasma specimen Performing Organization Address City/State/Zipcode Phone Number [facility] DEPARTMENT OF PATHOLOGY AND [address] [place] [address] GENOMIC MEDICINE after 05/07/2017 Insurance Payer Benefit Plan / Group Subscriber ID Type Phone Address HUMANA HUMANA HMO/POS/EPO/OPEN ACCESS xxxxxxxxx HMO HUMANA MEDICARE HUMANA MEDICARE PPO/PFFS/ERS MCR xxxxxxxxx PPO (Home) [id number] [place] [address] Advance Directives Patient has advance care planning documents on file. For more information, please contact:Kush Eller[address] [place] [address]
--- NOTE | 2018-05-08 10:46 | EDPHYS ---
Physician Documentation [facility] Name: Brenna Nelson Age: 88 yrs Sex: Female : 1930 Arrival Date: 05/08/2018 Time: 09:07 Bed 4 Private MD: ED Physician Blanco Latham HPI: 05/08 12:36 This 88 yrs old Female presents to ER via EMS with complaints of General gs Weakness. 12:36 The patient presents to the emergency department with weakness of the entire body, gs generalized weakness. Onset: The symptoms/episode began/occurred today, at 08:00. Context: occurred while the patient was getting up from bed, sitting. Associated signs and symptoms: Pertinent positives: weakness, could get up bp noted to be very elevated. Severity of symptoms: At their worst the symptoms were severe. Historical: - Allergies: 09:15 No Known Allergies; ph - Home Meds: 09:13 Jeff 1 cap twice a day [Active]; donepezil 10 mg Oral tab 1 tab nightly [Active]; ph gabapentin 300 mg Oral cap 1 cap twice a day [Active]; lisinopril 20 mg Oral tab 1 tab once daily [Active]; memantine 5 mg Oral tab 2 times per day [Active]; Myrbetriq 25 mg Oral Tb24 1 tab once daily [Active]; - PMHx: 09:13 Dementia; Hypertension; Irregular heart rate; ph - PSHx: 09:13 back; ph - Immunization history:: Adult Immunizations up to date. - Social history:: Smoking status: Patient/guardian denies using tobacco. - Ebola Screening: : No symptoms or risks identified at this time. ROS: 12:42 All other systems are negative. gs Exam: 12:42 Head/Face: Normocephalic, atraumatic. Eyes: Pupils equal round and reactive to light, gs extra-ocular motions intact. Lids and lashes normal. Conjunctiva and sclera are non-icteric and not injected. Cornea within normal limits. Periorbital areas with no swelling, redness, or edema. ENT: Nares patent. No nasal discharge, no septal abnormalities noted. Tympanic membranes are normal and external auditory canals are clear. Oropharynx with no redness, swelling, or masses, exudates, or evidence of obstruction, uvula midline. Mucous membranes moist. Neck: Trachea midline, no thyromegaly or masses palpated, and no cervical lymphadenopathy. Supple, full range of motion without nuchal rigidity, or vertebral point tenderness. No Meningismus. Chest/axilla: Normal chest wall appearance and motion. Nontender with no deformity. No lesions are appreciated. Cardiovascular: Regular rate and rhythm with a normal S1 and S2. No gallops, murmurs, or rubs. Normal PMI, no JVD. No pulse deficits. Respiratory: Lungs have equal breath sounds bilaterally, clear to auscultation and percussion. No rales, rhonchi or wheezes noted. No increased work of breathing, no retractions or nasal flaring. Abdomen/GI: Soft, non-tender, with normal bowel sounds. No distension or tympany. No guarding or rebound. No evidence of tenderness throughout. Back: No spinal tenderness. No costovertebral tenderness. Full range of motion. Skin: Warm, dry with normal turgor. Normal color with no rashes, no lesions, and no evidence of cellulitis. MS/ Extremity: Pulses equal, no cyanosis. Neurovascular intact. Full, normal range of motion. Neuro: Awake and alert, GCS 15, oriented to person, place, time, and situation. Cranial nerves II-XII grossly intact. Motor strength 5/5 in all extremities. Sensory grossly intact. Cerebellar exam normal. Normal gait. 12:42 Constitutional: The patient appears alert, awake. Vital Signs: 09:11 BP 179 / 69; Pulse 53; Resp 18; Temp 97.7; Pulse Ox 96% on R/A; ph 10:18 BP 153 / 67; Pulse 56; Resp 18; Pulse Ox 97% on R/A; ph 11:15 BP 147 / 68; Pulse 54; Resp 18; Temp 97.8; Pulse Ox 98% on R/A; ph NIH Stroke Scale Scores: 12:42 NIHSS Score: 0 gs MDM: 10:22 Patient medically screened. 12:42 Data reviewed: vital signs, nurses notes, old medical records. Data reviewed: ddx htn gs crisis,tia, cva. Response to treatment: the patient's symptoms have resolved after treatment. ED course: offered work up pt family choose to be discharged without work up. Administered Medications: No medications were administered Disposition: 05/08/18 10:45 Discharged to Home. Impression: Weakness, Essential (primary) hypertension, Transient cerebral ischemic attack, unspecified. - Condition is Stable. - Discharge Instructions: Hypertension, Transient Ischemic Attack, Weakness, Fatigue, Managing Your Hypertension. - Medication Reconciliation Form, Thank You Letter, Antibiotic Education, Prescription Opioid Use form. - Follow up: Private Physician; When: 2 - 3 days; Reason: Re-evaluation by your physician. NIH Stroke Scale - NIH Stroke Score Date: 05/08/2018 Time: 12:42 Total Score = 0 1a. Level of Consciousness (LOC) - 0(Alert) 1b. Level of Consciousness (LOC) (Year \T\ Age) - 0(Both) 1c. LOC Commands (Open \T\ Closes Eyes/Cardiopulmonary Physical Therapist) - 0(Both) 2. Best Gaze (Lateral Gaze Paresis) - 0(Normal) 3. Visual Field Loss - 0(No visual loss) 4. Facial Palsy - 0(Normal) 5a. Left Arm: Motor (10-second hold) - 0(No drift) 5b. Right Arm: Motor (10-second hold) - 0(No drift) 6a. Left Leg: Motor (5-second hold - always test supine) - 0(No drift) 6b. Right Leg: Motor (5-second hold - always test supine) - 0(No drift) 7. Limb Ataxia (finger/nose \T\ heel/marquez - test with eyes open) - 0(Absent) 8. Sensory Loss (pinprick arms/legs/face) - 0(Normal) 9. Best Language: Aphasia (description/naming/reading) - 0(No aphasia) 10. Dysarthria (speech clarity - read or repeat words) - 0(Normal) 11. Extinction and Inattention (visual/tactile/auditory/spatial/personal) - 0(No abnormality) Initials: Signatures: Jerri Nguyen RN RN ph Blanco Latham MD MD gs Corrections: (The following items were deleted from the chart) 11:17 10:45 05/08/2018 10:45 Discharged to Home. Impression: Weakness; Essential ph (primary) hypertension; Transient cerebral ischemic attack, unspecified. Condition is Stable. Forms are Medication Reconciliation Form, Thank You Letter, Antibiotic Education, Prescription Opioid Use. Follow up: Private Physician; When: 2 - 3 days; Reason: Re-evaluation by your physician. gs
--- NOTE | 2018-05-08 10:46 | ER ---
Nurse's Notes [facility] Name: Brenna Nelson Age: 88 yrs Sex: Female : 1930 Arrival Date: 05/08/2018 Time: 09:07 Bed 4 Private MD: Diagnosis: Weakness;Essential (primary) hypertension;Transient cerebral ischemic attack, unspecified Presentation: 05/08 09:08 Presenting complaint: EMS states: Pt c/o sudden onset of generalized weakness and ph fatigue this morning, also c/o nausea, BP 210/110, HR 52, T 97.0, pt recently treated and d/c from ED for HTN but no changes to home meds have been made, pt denies headache, blurred vision or chest pain, 4 mg Zofran given. Transition of care: patient was not received from another setting of care. Onset of symptoms was May 08, 2018. Risk Assessment: Do you want to hurt yourself or someone else? Patient reports no desire to harm self or others. Initial Sepsis Screen: Does the patient meet any 2 criteria? No. Patient's initial sepsis screen is negative. Does the patient have a suspected source of infection? No. Patient's initial sepsis screen is negative. Care prior to arrival: Medication(s) given: zofran 4 mg, IV initiated. 18 GA, in the right antecubital area. 09:08 Method Of Arrival: EMS: [facility] 09:08 Acuity: MAURILIO 3 ph Historical: - Allergies: 09:15 No Known Allergies; ph - Home Meds: 09:13 Jeff 1 cap twice a day [Active]; donepezil 10 mg Oral tab 1 tab nightly [Active]; ph gabapentin 300 mg Oral cap 1 cap twice a day [Active]; lisinopril 20 mg Oral tab 1 tab once daily [Active]; memantine 5 mg Oral tab 2 times per day [Active]; Myrbetriq 25 mg Oral Tb24 1 tab once daily [Active]; - PMHx: 09:13 Dementia; Hypertension; Irregular heart rate; ph - PSHx: 09:13 back; ph - Immunization history:: Adult Immunizations up to date. - Social history:: Smoking status: Patient/guardian denies using tobacco. - Ebola Screening: : No symptoms or risks identified at this time. Screenin:18 Abuse screen: Denies threats or abuse. Denies injuries from another. Nutritional ph screening: No deficits noted. Tuberculosis screening: No symptoms or risk factors identified. Fall Risk No fall in past 12 months (0 pts). Secondary diagnosis (15 points) dementia, IV access (20 points). Ambulatory Aid- None/Bed Rest/Nurse Assist (0 pts). Gait- Weak (10 pts.). Mental Status- Oriented to own ability (0 pts). Total Velasquez Fall Scale indicates High Risk Score (45 or more points). Fall prevention measures have been instituted. Side Rails Up X 2 Placed Close to Nursing Station Frequent Obs/Assessments Occuring Family Present and informed to notify staff if the need to leave the bedside As available patient and family educated on Fall Prevention Program and Strategies. Assessment: 09:20 General: Appears in no apparent distress. comfortable, slender, well groomed, Behavior ph is calm, cooperative, appropriate for age, Denies fever, feeling ill. Pain: Denies pain. Neuro: Level of Consciousness is awake, alert, obeys commands, Oriented to person, place, time, situation, Reports dizziness, weakness in "all over" Denies weakness headache diplopia. Cardiovascular: Denies chest pain, shortness of breath, Capillary refill < 3 seconds in bilateral fingers Patient's skin is warm and dry. Rhythm is sinus bradycardia. Respiratory: Airway is patent Respiratory effort is even, unlabored, Respiratory pattern is regular, symmetrical, Denies shortness of breath. GI: No signs and/or symptoms were reported involving the gastrointestinal system. : Denies burning with urination, urinary frequency. Derm: Skin is intact, is fragile, is thin, Skin is pink, warm \\T\\ dry. Musculoskeletal: Circulation, motion, and sensation intact. Range of motion: intact in all extremities. 10:45 Reassessment: Patient appears in no apparent distress at this time. Patient and/or ph family updated on plan of care and expected duration. Pain level reassessed. Patient is alert, oriented x 3, equal unlabored respirations, skin warm/dry/pink. Pt up to ambulate in hallway, accompanied by son, gait steady, pt reports slight dizziness, states, " I'm feeling better than I was earlier. I'm just tired and ready to go home.". Vital Signs: 09:11 BP 179 / 69; Pulse 53; Resp 18; Temp 97.7; Pulse Ox 96% on R/A; ph 10:18 BP 153 / 67; Pulse 56; Resp 18; Pulse Ox 97% on R/A; ph 11:15 BP 147 / 68; Pulse 54; Resp 18; Temp 97.8; Pulse Ox 98% on R/A; ph NIH Stroke Scale Scores: 12:42 NIHSS Score: 0 ED Course: 09:07 Patient arrived in ED. ph 09:08 Blanco Latham MD is Attending Physician. gs 09:11 Triage completed. ph 09:14 Arm band placed on. ph 10:19 Patient has correct armband on for positive identification. Placed in gown. Bed in low ph position. Call light in reach. Side rails up X2. monitoring engineer on. Pulse ox on. NIBP on. Warm blanket given. 10:21 Jerri Nguyen, RN is Primary Nurse. ph 11:15 No provider procedures requiring assistance completed. IV discontinued, intact, ph bleeding controlled, No redness/swelling at site. Pressure dressing applied. Administered Medications: No medications were administered Outcome: 10:45 Discharge ordered by . gs 11:17 Patient left the ED. ph 11:17 Discharged to home ph 11:17 Condition: good 11:17 Discharge instructions given to patient, family, Instructed on discharge instructions, follow up and referral plans. Demonstrated understanding of instructions, follow-up care. NIH Stroke Scale - NIH Stroke Score Date: 05/08/2018 Time: 12:42 Total Score = 0 1a. Level of Consciousness (LOC) - 0(Alert) 1b. Level of Consciousness (LOC) (Year \\T\\ Age) - 0(Both) 1c. LOC Commands (Open \\T\\ Closes Eyes/City Sanitarian) - 0(Both) 2. Best Gaze (Lateral Gaze Paresis) - 0(Normal) 3. Visual Field Loss - 0(No visual loss) 4. Facial Palsy - 0(Normal) 5a. Left Arm: Motor (10-second hold) - 0(No drift) 5b. Right Arm: Motor (10-second hold) - 0(No drift) 6a. Left Leg: Motor (5-second hold - always test supine) - 0(No drift) 6b. Right Leg: Motor (5-second hold - always test supine) - 0(No drift) 7. Limb Ataxia (finger/nose \\T\\ heel/marquez - test with eyes open) - 0(Absent) 8. Sensory Loss (pinprick arms/legs/face) - 0(Normal) 9. Best Language: Aphasia (description/naming/reading) - 0(No aphasia) 10. Dysarthria (speech clarity - read or repeat words) - 0(Normal) 11. Extinction and Inattention (visual/tactile/auditory/spatial/personal) - 0(No abnormality) Initials: gs Signatures: Jerri Nguyen, RN RN ph LathamBlanco MD MD gs
[2018-05-08 11:34] VITALS: BP 153/67; O2SAT 97
== END 2018-05-08 11:17 | disposition home or self-care (01) ==
LOC: ER 09:16 → SUPCPDRO 09:16 → ER 11:17
DX: G45.9 Transient cerebral ischemic attack, unspecified (principal); I10 Essential (primary) hypertension; F03.90 Unspecified dementia, unspecified severity, without behavioral disturbance, psychotic disturbance, mood disturbance, and anxiety
CPT/HCPCS: 99284

== ENCOUNTER 2018-05-14 09:31 | Emergency (ER) | payer OTHER ==
--- OUTSIDE RECORDS SUMMARY | 2018-05-14 09:33 | XMS REPORT | Clinical Summary ---
:1930 Author Organization [facility] Address [address] [place] [address] Care Team Providers Name Role Phone Unavailable [...] Visit Orthopedic Surgery Kevin Mcknight Primary osteoarthritis Cristian of both knees (Primary Dx) after 05/13/2017 Family History Medical History Relation Name Comments [...] Taken Blood Pressure 174/65 05/05/2018 2:08 PM PROJECT PLANNER Pulse 70 05/05/2018 2:08 PM PROJECT PLANNER Temperature - - Respiratory Rate - - Oxygen Saturation - - Inhaled Oxygen Concentration - - Weight 69.4 kg (153 lb) 05/05/2018 2:08 PM PROJECT PLANNER Height 165.1 cm (5' 5") 05/05/2018 2:08 PM PROJECT PLANNER Body Mass Index 25.46 05/05/2018 2:08 PM PROJECT PLANNER Plan of Treatment Date Type Specialty Care Team Description 05/24/2018 Office Visit Orthopedic Surgery Kevin Mcknight [address] [facility] [address] [place] [address] [phone] 06/11/2018 Office Visit Orthopedic Surgery Kevin Mcknight [address] [facility] [address] [place] [address] [phone] Results Not on fileafter 05/13/2017 Insurance Payer Benefit Plan / Group Subscriber ID Type Phone Address HUMANA - MGD CARE HUMANA PPO SELECT ASO xxxxxxxxx PPO
--- OUTSIDE RECORDS SUMMARY | 2018-05-14 09:33 | XMS REPORT | Clinical Summary ---
:1930 Author Organization [facility] Address [address] [place] [address] Care Team Providers Name Role Phone Asked, [...] Testing Julio Morrell MD (Primary Dx) after 05/13/2017 Social History Tobacco Use Types Packs/Day Years [...] neurogenic claudication Case Notes "PATIENT COMING FROM HALF-WAY, ? NAME", POSSIBLE EXTENDED STAY Special Needs "PATIENT COMING FROM HALF-WAY, ? NAME", POSSIBLE EXTENDED STAY XR LUMBAR SPINE 1 VW Routine 10/15/2017 1:24 PM S/P lumbar Results for this CDT laminectomy procedure are in the results section. XR LUMBAR SPINE 1 VW Routine 10/15/2017 1:10 PM S/P lumbar Results for this CDT laminectomy procedure are in the results section. MO AN ELECTIVE Routine 10/15/2017 12:55 PM ENDOTRACHEAL [...] procedure are in the results section. after 05/13/2017 Results Surgical pathology request (10/15/2017 3:00 PM CDT) [facility] DEPARTMENT OF PATHOLOGY AND GENOMIC MEDICINE Surgical pathology report See link below for PDF [facility] DEPARTMENT OF Lab Report PATHOLOGY AND GENOMIC MEDICINE Result status This is Final Report to [facility] DEPARTMENT OF [id number] PATHOLOGY AND GENOMIC MEDICINE Performing Organization Address City/State/Zipcode Phone Number [facility] DEPARTMENT OF PATHOLOGY AND [address] [place] [address] [employer] XR Lumbar Spine 1 Vw (10/15/2017 1:24 PM CDT)Only the most recent of2 resultswithin the time period is included. Narrative Performed At EXAMINATION: XR LUMBAR SPINE 1 VW [facility] CLINICAL HISTORY: Z98.890 Other specified postprocedural states COMPARISON:1303 hours same date IMPRESSION: Single lateral intraoperative radiograph in bone and soft tissue filters demonstrates posterior approach surgical instruments centered at the L3-L4 level. [id number] Procedure Note Hm Interface, Radiology Results Incoming - 10/15/2017 4:32 PM CDT EXAMINATION: XR LUMBAR SPINE 1 VW CLINICAL HISTORY: Z98.890 Other specified postprocedural states COMPARISON: 1303 hours same date IMPRESSION: Single lateral intraoperative radiograph in bone and soft tissue filters demonstrates posterior approach surgical instruments centered at the L3-L4 level. [id number] Performing Organization Address [facility] Phone Number [facility] [address] [place] [address] ECG Pre/Post Op (10/05/2017 12:33 PM CDT) Ventricular rate 51 [facility] Atrial rate 51 [facility] MO interval 206 [facility] QRSD interval 84 [facility] QT interval 456 [facility] QTC interval 420 [facility] P axis 1 77 [facility] QRS axis 1 24 [facility] T wave axis 29 [facility] EKG impression Sinus bradycardia with premature atrial [facility] MUSE complexes-Nonspecific ST abnormality-Abnormal ECG-No previous ECGs available- Performing Organization Address [facility] Phone Number [facility] M[facility] [address] [place] [address] Estimated GFR (10/05/2017 12:09 PM CDT) GFR Non Af Amer 68 mL/min/1.73 m2 [facility] DEPARTMENT OF PATHOLOGY AND GENOMIC MEDICINE GFR Af Amer 83 mL/min/1.73 m2 [facility] DEPARTMENT OF Comment: PATHOLOGY AND GENOMIC [...] Americans. Specimen Plasma specimen Performing Organization Address [facility]/State/Zipcode Phone Number [facility] DEPARTMENT OF PATHOLOGY AND [address] [place] [phone] [employer] CBC hemogram (10/05/2017 12:09 PM CDT) WBC 5.24 4.50 - 11.00 k/uL [facility] DEPARTMENT OF PATHOLOGY AND GENOMIC MEDICINE RBC 4.02 (L) 4.20 - 5.50 m/uL [facility] DEPARTMENT OF PATHOLOGY AND GENOMIC MEDICINE HGB 12.3 12.0 - 16.0 g/dL [facility] DEPARTMENT OF PATHOLOGY AND GENOMIC MEDICINE HCT 37.4 37.0 - 47.0 % [facility] DEPARTMENT OF PATHOLOGY AND GENOMIC MEDICINE MCV 93.0 82.0 - 100.0 fL [facility] DEPARTMENT OF PATHOLOGY AND GENOMIC MEDICINE MCH 30.6 27.0 - 34.0 pg [facility] DEPARTMENT OF PATHOLOGY AND GENOMIC MEDICINE MCHC 32.9 31.0 - 37.0 g/dL [facility] DEPARTMENT OF PATHOLOGY AND GENOMIC MEDICINE RDW - SD 46.9 37.0 - 55.0 fL [facility] DEPARTMENT OF PATHOLOGY AND GENOMIC MEDICINE MPV 11.0 8.8 - 13.2 fL [facility] DEPARTMENT OF PATHOLOGY AND GENOMIC MEDICINE Platelet count 189 150 - 400 k/uL [facility] DEPARTMENT OF PATHOLOGY AND GENOMIC MEDICINE Nucleated RBC 0.00 /100 WBC [facility] DEPARTMENT OF PATHOLOGY AND GENOMIC MEDICINE Specimen Blood Performing Organization Address City/[facility]/Zipcode Phone Number [facility] DEPARTMENT OF PATHOLOGY AND [address] [place] [phone] [employer] [facility] Basic metabolic panel (10/05/2017 12:09 PM CDT) Sodium 142 135 - 148 mEq/L [facility] DEPARTMENT OF PATHOLOGY AND GENOMIC MEDICINE Potassium 3.9 3.5 - 5.0 mEq/L [facility] DEPARTMENT OF PATHOLOGY AND GENOMIC MEDICINE Chloride 103 98 - 112 mEq/L [facility] DEPARTMENT OF PATHOLOGY AND GENOMIC MEDICINE CO2 27 24 - 31 mEq/L [facility] DEPARTMENT OF PATHOLOGY AND GENOMIC MEDICINE Anion gap 12@ANIO 7 - 15 mEq/L [facility] DEPARTMENT OF PATHOLOGY AND GENOMIC MEDICINE BUN 17 8 - 23 mg/dL [facility] DEPARTMENT OF PATHOLOGY AND GENOMIC MEDICINE Creatinine 0.8 0.5 - 0.9 mg/dL [facility] DEPARTMENT OF PATHOLOGY AND GENOMIC MEDICINE Glucose 75 65 - 99 mg/dL [facility] DEPARTMENT OF PATHOLOGY AND GENOMIC MEDICINE Calcium 9.0 8.8 - 10.2 mg/dL [facility] DEPARTMENT OF PATHOLOGY AND GENOMIC MEDICINE Specimen Plasma specimen Performing Organization Address City/State/Zipcode Phone Number [facility] DEPARTMENT OF PATHOLOGY AND [address] [place] [address] GENOMIC MEDICINE after 05/13/2017 Insurance Payer Benefit Plan / Group Subscriber ID Type Phone Address HUMANA HUMANA HMO/POS/EPO/OPEN ACCESS xxxxxxxxx HMO HUMANA MEDICARE HUMANA MEDICARE PPO/PFFS/ERS MCR xxxxxxxxx PPO (Home) [id number] [place] [address] Advance Directives Patient has advance care planning documents on file. For more information, please contact:Kush Eller[address] [place] [address]
--- NOTE | 2018-05-14 11:19 | RAD REPORT ---
EXAM DESCRIPTION: RAD - Wrist Right 3 View - 05/14/2018 11:03 am CLINICAL HISTORY: Pain;Swelling Pain COMPARISON: Wrist Right 3 View dated 07/14/2017; Wrist Right 3 View dated 04/13/2017; Chest Single Vi ew dated 04/26/2018 FINDINGS: Prominent osteopenia is seen involving the right wrist. First and second carpometacarpal joints are moderately arthritic. An acute fracture is not seen however moderate soft tissue swelling is evident. If pain persists or progresses, gated in the degree of osteopenia, CT or MR imaging woul d be advised appear
--- NOTE | 2018-05-14 12:10 | ER ---
Nurse's Notes [facility] Name: Brenna Nelson Age: 88 yrs Sex: Female : 1930 Arrival Date: 05/14/2018 Time: 09:35 Bed 10 Private MD: Cathi Guadalupe C Diagnosis: Cellulitis of right upper limb Presentation: 05/14 09:53 Presenting complaint: Patient states: pain swelling bruising to right wrist, tender to iw touch, can't move fingers very well. Transition of care: patient was not received from another setting of care. Onset of symptoms was May 13, 2018. Risk Assessment: Do you want to hurt yourself or someone else? Patient reports no desire to harm self or others. Initial Sepsis Screen: Does the patient meet any 2 criteria? No. Patient's initial sepsis screen is negative. Does the patient have a suspected source of infection? No. Patient's initial sepsis screen is negative. Care prior to arrival: None. 09:53 Method Of Arrival: Wheelchair iw 09:53 Acuity: MAURILIO 4 iw Triage Assessment: 12:35 General: Appears in no apparent distress. Behavior is calm. iw Historical: - Allergies: 09:55 No Known Allergies; iw - Home Meds: 09:55 donepezil 10 mg Oral tab 1 tab nightly [Active]; lisinopril 20 mg Oral tab 1 tab once iw daily [Active]; Myrbetriq 25 mg Oral Tb24 1 tab once daily [Active]; memantine 5 mg Oral tab 2 times per day [Active]; 09:57 famotidine 40 mg Oral tab 1 tab once daily [Active]; Vitamin D Oral daily [Active]; iw - PMHx: 09:55 Dementia; Hypertension; Irregular heart rate; iw - PSHx: 09:55 back; iw - Immunization history:: Adult Immunizations up to date. - Social history:: Smoking status: Patient/guardian denies using tobacco. - Ebola Screening: : Patient negative for fever greater than or equal to 101.5 degrees Fahrenheit, and additional compatible Ebola Virus Disease symptoms Patient denies exposure to infectious person Patient denies travel to an Ebola-affected area in the 21 days before illness onset No symptoms or risks identified at this time. Screenin:30 Abuse screen: Denies threats or abuse. Denies injuries from another. Nutritional iw screening: No deficits noted. Tuberculosis screening: No symptoms or risk factors identified. Fall Risk None identified. Assessment: 10:20 General: Appears in no apparent distress. Behavior is calm, cooperative. Pain: iw Complains of pain in dorsal aspect of right wrist. Neuro: Level of Consciousness is awake, alert, obeys commands, Moves all extremities. Full function. Cardiovascular: Patient's skin is warm and dry. Respiratory: Respiratory effort is even, unlabored. Derm: Skin is fragile, Bruising that is bright red, on dorsal aspect of right wrist. Musculoskeletal: Range of motion: intact in all extremities. Vital Signs: 09:55 BP 152 / 61; Pulse 60; Resp 16; Temp 97.9; Pulse Ox 98% on R/A; Weight 69.85 kg; Pain iw 8; ED Course: 09:35 Patient arrived in ED. mr 09:36 Cathi Guadalupe MD is Private Physician. mr 09:54 Triage completed. iw 10:30 Arm band placed on. iw 10:42 Byron Cardenas PA is PHCP. jmm 10:42 Meir Wolf MD is Attending Physician. [facility] 10:42 Juana Motley FNP-C is PHCP. [facility] 10:45 Carmel Beal, RN is Primary Nurse. iw 10:45 Patient has correct armband on for positive identification. iw 11:00 X-ray completed. Portable x-ray completed in exam room. Patient tolerated procedure jb2 well. 11:04 Wrist Right 3 View XRAY In Process Unspecified. EDMS 12:09 Cathi Guadalupe MD is Referral Physician. snw 12:20 Velcro wrist splint applied to right wrist. Sling applied to right arm. iw 12:36 No provider procedures requiring assistance completed. Patient did not have IV access iw during this emergency room visit. Administered Medications: 12:35 Drug: Doxycycline 100 mg Route: PO; iw Outcome: 12:10 Discharge ordered by . snw 12:36 Discharged to home via wheelchair, with family. iw 12:36 Condition: good 12:36 Discharge instructions given to family, Instructed on discharge instructions, follow up and referral plans. medication usage, Demonstrated understanding of instructions, follow-up care, medications, Prescriptions given X 1. 12:36 Patient left the ED. iw Signatures: Dispatcher [employer] EDMS Juana Motley, ROLLER PRINTING SUPERVISOR-C ROLLER PRINTING SUPERVISOR-Csnw Byron Cardenas PA PA jmm Rivera, Mary mr MirandaSidney jbCarmel Rodrigues RN RN iw Corrections: (The following items were deleted from the chart) 09:57 09:55 Home Meds: Jeff 1 cap twice a day; iw iw
--- NOTE | 2018-05-14 12:11 | EDPHYS ---
Physician Documentation [facility] Name: Brenna Nelson Age: 88 yrs Sex: Female : 1930 Arrival Date: 05/14/2018 Time: 09:35 Bed 10 Private MD: Cathi Guadalupe C ED Physician Meir Wolf HPI: 05/14 12:56 This 88 yrs old Female presents to ER via Wheelchair with complaints of Wrist snw Pain. 12:56 The patient or guardian reports decreased range of motion, swelling, tenderness. The snw complaints affect the right wrist diffusely. Context: The problem was sustained at an unknown location, resulted from an unknown cause. Onset: The symptoms/episode began/occurred suddenly, 1 day(s) ago, and became worse today. Associated signs and symptoms: The patient has no apparent associated signs or symptoms. The patient has not experienced similar symptoms in the past. The patient has been recently seen by a physician: the patient's primary care provider, Dr. Guadalupe. Historical: - Allergies: 09:55 No Known Allergies; iw - Home Meds: 09:55 donepezil 10 mg Oral tab 1 tab nightly [Active]; lisinopril 20 mg Oral tab 1 tab once iw daily [Active]; Myrbetriq 25 mg Oral Tb24 1 tab once daily [Active]; memantine 5 mg Oral tab 2 times per day [Active]; 09:57 famotidine 40 mg Oral tab 1 tab once daily [Active]; Vitamin D Oral daily [Active]; iw - PMHx: 09:55 Dementia; Hypertension; Irregular heart rate; iw - PSHx: 09:55 back; iw - Immunization history:: Adult Immunizations up to date. - Social history:: Smoking status: Patient/guardian denies using tobacco. - Ebola Screening: : Patient negative for fever greater than or equal to 101.5 degrees Fahrenheit, and additional compatible Ebola Virus Disease symptoms Patient denies exposure to infectious person Patient denies travel to an Ebola-affected area in the 21 days before illness onset No symptoms or risks identified at this time. ROS: 12:56 Constitutional: Negative for fever, chills, and weight loss, Eyes: Negative for injury, snw pain, redness, and discharge, ENT: Negative for injury, pain, and discharge, Neck: Negative for injury, pain, and swelling, Cardiovascular: Negative for chest pain, palpitations, and edema, Respiratory: Negative for shortness of breath, cough, wheezing, and pleuritic chest pain, Abdomen/GI: Negative for abdominal pain, nausea, vomiting, diarrhea, and constipation, Back: Negative for injury and pain, : Negative for injury, bleeding, discharge, and swelling, Skin: Negative for injury, rash, and discoloration, Neuro: Negative for headache, weakness, numbness, tingling, and seizure, Psych: Negative for depression, anxiety, suicide ideation, homicidal ideation, and hallucinations. 12:56 MS/extremity: Positive for decreased range of motion, erythema, swelling, tenderness, of the dorsal aspect of right wrist. Exam: 12:55 Constitutional: This is a well developed, well nourished patient who is awake, alert, snw and in no acute distress. Head/Face: Normocephalic, atraumatic. Eyes: Pupils equal round and reactive to light, extra-ocular motions intact. Lids and lashes normal. Conjunctiva and sclera are non-icteric and not injected. Cornea within normal limits. Periorbital areas with no swelling, redness, or edema. ENT: Nares patent. No nasal discharge, no septal abnormalities noted. Tympanic membranes are normal and external auditory canals are clear. Oropharynx with no redness, swelling, or masses, exudates, or evidence of obstruction, uvula midline. Mucous membranes moist. Neck: Trachea midline, no thyromegaly or masses palpated, and no cervical lymphadenopathy. Supple, full range of motion without nuchal rigidity, or vertebral point tenderness. No Meningismus. Chest/axilla: Normal chest wall appearance and motion. Nontender with no deformity. No lesions are appreciated. Cardiovascular: Regular rate and rhythm with a normal S1 and S2. No gallops, murmurs, or rubs. Normal PMI, no JVD. No pulse deficits. Respiratory: Lungs have equal breath sounds bilaterally, clear to auscultation and percussion. No rales, rhonchi or wheezes noted. No increased work of breathing, no retractions or nasal flaring. Abdomen/GI: Soft, non-tender, with normal bowel sounds. No distension or tympany. No guarding or rebound. No evidence of tenderness throughout. Back: No spinal tenderness. No costovertebral tenderness. Full range of motion. Neuro: Awake and alert, GCS 15, oriented to person, place, time, and situation. Cranial nerves II-XII grossly intact. Motor strength 5/5 in all extremities. Sensory grossly intact. Cerebellar exam normal. Normal gait. Psych: Awake, alert, with orientation to person, place and time. Behavior, mood, and affect are within normal limits. 12:55 Musculoskeletal/extremity: Extremities: grossly normal except: noted in the dorsal aspect of right wrist: erythema, swelling, tenderness. 12:55 Skin: Appearance: normal except for affected area, cellulitis, that is mild, well demarcated, on the dorsal aspect of right wrist. Vital Signs: 09:55 BP 152 / 61; Pulse 60; Resp 16; Temp 97.9; Pulse Ox 98% on R/A; Weight 69.85 kg; Pain iw 810; MDM: 10:43 Patient medically screened. snw 12:12 Data reviewed: vital signs, nurses notes. Data interpreted: Pulse oximetry: on room air snw is 98 %. Interpretation: normal. Counseling: I had a detailed discussion with the patient and/or guardian regarding: the historical points, exam findings, and any diagnostic results supporting the discharge/admit diagnosis, radiology results, the need for outpatient follow up, to return to the emergency department if symptoms worsen or persist or if there are any questions or concerns that arise at home. Special discussion: I discussed in detail with the patient the higher chance of wound infection based on his presenting history. Based on the history and exam findings, there is no indication for further emergent testing or inpatient evaluation. I discussed with the patient/guardian the need to see the primary care provider for further evaluation of the symptoms. 05/14 10:15 Order name: Wrist Right 3 View XRAY; Complete Time: 11:52 iw 05/14 12:09 Order name: Splint - Wrist; Complete Time: 12:35 snw 05/14 12:09 Order name: Sling; Complete Time: 12:35 snw 05/14 12:09 Order name: Ice pack; Complete Time: 12:35 snw Administered Medications: 12:35 Drug: Doxycycline 100 mg Route: PO; iw Disposition: 12:38 Co-signature as Attending Physician, Meir Wolf MD. rn Disposition: 05/14/18 12:10 Discharged to Home. Impression: Cellulitis of right upper limb. - Condition is Stable. - Discharge Instructions: Elastic Bandage and RICE, Cellulitis, Adult, How to Use a Sling. - Prescriptions for Doxycycline Hyclate 100 mg Oral Tablet - take 1 tablet by ORAL route every 12 hours; 20 tablet. - Medication Reconciliation Form, Thank You Letter, Antibiotic Education, Prescription Opioid Use form. - Follow up: Cathi Guadalupe MD; When: 2 - 3 days; Reason: Recheck today's complaints, Continuance of care, Re-evaluation by your physician. Follow up: Emergency Department; When: As needed; Reason: Worsening of condition. Signatures: Dispatcher [employer] EDMS Juana Motley, EMERGENCY MANAGEMENT CONSULTANT-C EMERGENCY MANAGEMENT CONSULTANT-Csnw Carmel Beal, RN RN iw Meir Wolf MD MD radius corner machine operator: (The following items were deleted from the chart) 09:57 09:55 Home Meds: Jeff 1 cap twice a day; [facility] 12:36 12:10 05/14/2018 12:10 Discharged to Home. Impression: Cellulitis of right upper limb. iw Condition is Stable. Forms are Medication Reconciliation Form, Thank You Letter, Antibiotic Education, Prescription Opioid Use. Follow up: Cathi Guadalupe; When: 2 - 3 days; Reason: Recheck today's complaints, Continuance of care, Re-evaluation by your physician. Follow up: Emergency Department; When: As needed; Reason: Worsening of condition. snw
[2018-05-14] MEDS ORDERED: DOXYCYCLINE 100 MG CAP PO ONE (12:30)
[2018-05-14 12:42] VITALS: BP 152/61; TEMP 97.9; O2SAT 98
== END 2018-05-14 12:36 | disposition home or self-care (01) ==
LOC: ER 09:31
DX: L03.113 Cellulitis of right upper limb (principal); I10 Essential (primary) hypertension; F03.90 Unspecified dementia, unspecified severity, without behavioral disturbance, psychotic disturbance, mood disturbance, and anxiety

== ENCOUNTER 2020-02-09 07:42 | Emergency (ER) | payer OTHER ==
--- OUTSIDE RECORDS SUMMARY | 2020-02-09 07:47 | XMS REPORT | Clinical Summary ---
:1930 Author Organization [facility] Address [address] [place] [address] Care Team Providers Name Role Phone Asked, No Pcp Primary Care Provider Unavailable Allergies No Known Active Allergies Medications Medication Sig Dispensed Refills Start Date End Date Status mirabegron 25 mg tablet Take by mouth. 0 Active extended release 24 hr lisinopril Take 20 mg by 0 Activ e (PRINIVIL,ZESTRIL) 20 mouth daily. mg tablet memantine (NAMENDA) 5 Take 5 mg by 0 Active MG tablet mouth 2 (two) times a day. donepezil (ARICEPT) 10 Take 10 mg by 0 Active MG tablet mouth nightly. gabapentin (NEURONTIN) Take 300 mg by 0 Active 300 mg capsule mouth 3 (three) times a day. timolol (TIMOPTIC) 0.5 1 drop 2 (two) 0 10/15/2017 Active % ophthalmic solution times a day. Active Problems Problem Noted Date S/P lumbar laminectomy 10/15/2017 Surgical History Surgery Date Site/Laterality Comments LAMINECTOMY, LUMBAR 10/15/2017 Spine Lumbar/N/A Procedure: LUMBAR LAMINECTOMY FOR NERVE ROOT AND C AUDA EQUINA DECOMPRESSION BI LATERAL L3-L4 ; Surgeon: Julio Olson MD; Location: [facility]; Service: Neurosurgery; L aterality: N/A; Medical History Medical History Date Comments Hypertension Arthritis Anesthesia NO PRIOR SURGERY/NO FHAP-denies CP/SOB natural teeth Exercises daily walk x 30 mins Glaucoma Social History Tobacco Use Types Packs/Day Years Used Date Never Smoker Smokeless Tobacco: Never Used Alcohol Use Drinks/Week oz/Week Comments No Sex Assigned at Date Recorded Not on file Last Filed Vital Signs Not on file Plan of Treatment Health Maintenance Due Date Last Done Comments SHINGLES VACCINES (#1) 1982 65+ PNEUMOCOCCAL VACCINE (1 of - PPSV23) 1997 INFLUENZA VACCINE 11/26/2019 Results Not on fileafter 02/08/2019 Insurance Payer Benefit Plan / Subscriber ID Effective Dates Phone Addre ss Type Group HUMANA HUMANA [id number] 2017-Present HMO HMO/POS/EPO/OPEN ACCESS HUMANA MEDICARE HUMANA MEDICARE [id number] 2017-Present PPO PPO/PFFS/ERS [facility] Advance Directives For more information, please contact: [phone] Type Date Recorded Patient Leasing Director Explanati on Advance Directives, 10/05/2017 11:00 AM Living Will and Medical Power of Manager Department Advance Directives, 10/16/2017 10:54 AM Living Will and Medical Power of Manager Department Advance Directives, 10/16/2017 10:54 AM Living Will and Medical Power of Manager Department
--- OUTSIDE RECORDS SUMMARY | 2020-02-09 07:47 | XMS REPORT | Clinical Summary ---
:1930 Author Organization [facility] Address [address] [place] [address] Care Team Providers Name Role Phone Barber Guadalupe MD Primary Care Provider Allergies Active Allergy Reactions Severity Noted Date Comments Brimonidine Tartrate 10/18/2014 Codeine Phosphate 08/04/2011 Medications Medication Sig Dispensed Refills Start Date End Date Status MYRBETRIQ 25 mg Tb24 Take 25 mg by mouth 1 8 Active ER tablet daily. lisinopril Take 20 mg by 0 Activ e (PRINIVIL,ZESTRIL) 20 mouth. MG tablet memantine (NAMENDA) 5 Take 5 mg by mouth 4 8 Active MG tablet 2 (two) times daily. donepezil (ARICEPT) Take 10 mg by 3 04/20/2018 Active 10 MG tablet mouth. gabapentin Take 300 mg by 0 Acti ve (NEURONTIN) 300 MG mouth. capsule amLODIPine (NORVASC) Take 5 mg by mouth 6 08/09/2018 Active 5 MG tablet every evening. diclofenac 1 % Gel APPLY SMALL AMOUNT 6 08/11/2018 Active TWO TO THREE TIMES A DAY TO KNEE AREA NEEDED FOR PAIN DULoxetine (CYMBALTA) Take 20 mg by mouth 3 07/30/19 19 Active 20 MG capsule daily. famotidine (PEPCID) TAKE 1 TABLET BY 3 08/10/2018 Active 40 MG tablet MOUTH EVERYDAY AT BEDTIME meloxicam (MOBIC) 7.5 Take 7.5 mg by 0 Active MG tablet mouth daily. Hospital, Clinic, or Other Ordered Dose Route Frequency Start Date End Date Status Facility Administered Medication dexamethasone (DECADRON) 4 mg IAtc Once 04/01/2019 120 09/2018 Ended injection 4 mgIndications: Primary osteoarthritis of both knees lidocaine (XYLOCAINE) 1 mL IAtc Once 04/01/2019 019 Ended injection 1%Indications: Primary osteoarthritis of both knees bupivacaine 0.25 % (2.5 2.5 mg IAtc Once 04/01/201904/01 Ended mg/mL) injection 2.5 mgIndications: Primary osteoarthritis of both knees dexamethasone (DECADRON) 4 mg IAtc Once 04/01/201909/2018 Ended injection 4 mgIndications: Primary osteoarthritis of both knees lidocaine (XYLOCAINE) 1 mL IAtc Once 04/01/2019 019 Ended injection 1%Indications: Primary osteoarthritis of both knees bupivacaine 0.25 % (2.5 2.5 mg IAtc Once 04/01/201904/01 Ended mg/mL) injection 2.5 mgIndications: Primary osteoarthritis of both knees Active Problems Problem Noted Date Primary osteoarthritis of both knees 07/12/2018 Risk for falls 07/12/2018 S/P lumbar laminectomy 10/15/2017 POAG (primary open-angle glaucoma) 06/05/2014 Glaucoma 08/04/2011 Primary open-angle glaucoma(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 No t asked Sex Assigned at Date Recorded Not on file Last Filed Vital Signs Vital Sign Reading Time Taken Comments Blood Pressure 141/78 04/01/2019 11:19 AM MUSEUM LIBRARIAN Pulse 58 04/01/2019 11:19 AM MUSEUM LIBRARIAN Temperature - - Respiratory Rate - - Oxygen Saturation - - Inhaled Oxygen Concentration - - Weight 71.7 kg (158 lb) 04/01/2019 11:19 AM MUSEUM LIBRARIAN Height 167.6 cm (5' 6") 04/01/2019 11:19 AM MUSEUM LIBRARIAN Body Mass Index 25.5 04/01/2019 11:19 AM MUSEUM LIBRARIAN Plan of Treatment Health Maintenance Due Date Last Done Comments PNEUMOCOCCAL 65+ YRS (1 of 1 - [id number]) 1997 INFLUENZA VACCINE (#1) 2019 Results Not on fileafter 02/08/2019 Insurance Payer Benefit Plan / Subscriber ID Effective Dates Phone Addre ss Type Group HUMANA - MGD CARE HUMANA PPO SELECT [id number] 2018-Present PPO ASO
[2020-02-09] MEDS ORDERED: TETANUS & DIPHTHERIA TOX,ADULT 0.5 ML VIAL ONE (08:21)
[2020-02-09] MEDS ORDERED: LIDOCAINE 1% W/EPI 1:100,000 MDV 20 ML VIAL ONE (08:21)
[2020-02-09] MEDS ORDERED: BUPIVACAINE 0.5% PF 10 ML VIAL ONE (08:21)
[2020-02-09] MEDS ORDERED: LIDOCAINE 1% MPF 30 ML VIAL ONE (09:22)
--- NOTE | 2020-02-09 09:38 | EDPHYS ---
Physician Documentation [facility] Name: Brenna Nelson Age: 89 yrs Sex: Female : 1930 Arrival Date: 02/09/2020 Time: 07:46 Bed 7 Private MD: ED Physician Karri Silva HPI: 02/08 08:19 This 89 yrs old Female presents to ER via EMS with complaints of Fall Injury. kdr 08:19 Details of fall: The patient fell from seated position, out of a chair, The patient was kdr leaning over and fell, hitting her left arm on the toilet. She denies any other injuries. Onset: The symptoms/episode began/occurred acutely, just prior to arrival. Associated injuries: The patient sustained palmar aspect of left forearm, laceration, 8 cm(s). Severity of symptoms: At their worst the symptoms were mild, in the emergency department the symptoms are unchanged. The patient has not experienced similar symptoms in the past. The patient has not recently seen a physician. Historical: - Allergies: 07:51 No Known Allergies; ph - Home Meds: 07:51 donepezil 10 mg Oral tab 1 tab nightly [Active]; famotidine 40 mg Oral tab 1 tab once ph daily [Active]; gabapentin 300 mg Oral cap 1 cap twice a day [Active]; lisinopril 20 mg Oral tab 1 tab once daily [Active]; memantine 5 mg Oral tab 2 times per day [Active]; Myrbetriq 25 mg Oral Tb24 1 tab once daily [Active]; Vitamin D Oral daily [Active]; - PMHx: 07:51 Dementia; Hypertension; Irregular heart rate; ph - PSHx: 07:51 back; ph - Immunization history:: Adult Immunizations unknown. - Social history:: Smoking status: Patient denies any tobacco usage or history of. - Immunization history: Last tetanus immunization: unknown. ROS: 08:19 Constitutional: Negative for fever, chills, and weight loss, Eyes: Negative for injury, kdr pain, redness, and discharge, Neck: Negative for injury, pain, and swelling, Cardiovascular: Negative for chest pain, palpitations, and edema, Respiratory: Negative for shortness of breath, cough, wheezing, and pleuritic chest pain, Abdomen/GI: Negative for abdominal pain, nausea, vomiting, diarrhea, and constipation, Back: Negative for injury and pain, : Negative for injury, bleeding, discharge, and swelling, Skin: Negative for injury, rash, and discoloration, Neuro: Negative for headache, weakness, numbness, tingling, and seizure activity. Psych: Negative for depression, anxiety, suicide ideation, homicidal ideation, and hallucinations, Allergy/Immunology: Negative for hives, rash, and allergies, Endocrine: Negative for neck swelling, polydipsia, polyuria, polyphagia, and marked weight changes, Hematologic/Lymphatic: Negative for swollen nodes, abnormal bleeding, and unusual bruising. 08:19 MS/extremity: Positive for injury or acute deformity, pain, tenderness, of the palmar aspect of left forearm. Exam: 08:22 Head/Face: Normocephalic, atraumatic. Eyes: Pupils equal round and reactive to light, kdr extra-ocular motions intact. Lids and lashes normal. Conjunctiva and sclera are non-icteric and not injected. Cornea within normal limits. Periorbital areas with no swelling, redness, or edema. Neck: Trachea midline, no thyromegaly or masses palpated, and no cervical lymphadenopathy. Supple, full range of motion without nuchal rigidity, or vertebral point tenderness. No Meningismus. Chest/axilla: Normal chest wall appearance and motion. Nontender with no deformity. No lesions are appreciated. Back: No spinal tenderness. No costovertebral tenderness. Full range of motion. 08:22 Musculoskeletal/extremity: Extremities: ROM: intact in all extremities, Pulses: are normal with no appreciated deficits, Sensation intact. 08:22 Skin: injury, laceration(s), the wound is approximately 8 cm(s), with a depth of .5 cm(s), of the palmar aspect of left forearm. Vital Signs: 07:52 BP 164 / 63; Pulse 60; Resp 18; Temp 98.1; Pulse Ox 99% on R/A; Weight 72.57 kg; ph 09:42 BP 154 / 63; Pulse 62; Resp 18; Temp 97.8; Pulse Ox 99% on R/A; ph [place] Coma Score: 08:03 Eye Response: spontaneous(4). Verbal Response: oriented(5). Motor Response: obeys ph commands(6). Total: 15. 09:42 Eye Response: spontaneous(4). Verbal Response: oriented(5). Motor Response: obeys ph commands(6). Total: 15. Trauma Score (Adult): 08:03 Eye Response: spontaneous(1); Verbal Response: oriented(1); Motor Response: obeys ph commands(2); Systolic BP: > 89 mm Hg(4); Respiratory Rate: 10 to 29 per min(4); Jonny Score: 15; Trauma Score: 12 09:42 Eye Response: spontaneous(1); Verbal Response: oriented(1); Motor Response: obeys ph commands(2); Systolic BP: > 89 mm Hg(4); Respiratory Rate: 10 to 29 per min(4); [place] Score: 15; Trauma Score: 12 Laceration: 09:36 Wound Repair of 8cm ( 3.1in ) subcutaneous laceration to palmar aspect of left forearm. kb Skin/tissue flap noted.. "v" shaped. Distal neuro/vascular/tendon intact. Anesthesia: Wound infiltrated with 6 mls of 1% lidocaine. Wound prep: Moderate cleansing with betadine by me, Wound irrigation with saline by me, Wound explored moderately. Skin closed with 11 5-0 Prolene using simple sutures and sterile technique. Patient tolerated well. MDM: 08:22 Data reviewed: vital signs, nurses notes. Counseling: I had a detailed discussion with kdr the patient and/or guardian regarding: the historical points, exam findings, and any diagnostic results supporting the discharge/admit diagnosis, the need for outpatient follow up. 09:38 Patient medically screened. [facility] 02/08 08:00 Order name: Prolene, Sutures: 4-0; Complete Time: 08:14 [facility] 02/08 08:00 Order name: Dressing - Wound; Complete Time: 09:40 kdr 02/08 08:00 Order name: Gloves, Sterile; Complete Time: 08:14 kdr 02/08 08:00 Order name: Setup Suture Tray; Complete Time: 08:14 kdr Administered Medications: 09:00 Drug: Tetanus-Diphtheria Toxoid Adult 0.5 ml {Book Reviewer: [email or web address]. Exp: ph 06/19/2022. Lot #: [id number]. } Route: IM; Site: left deltoid; 09:40 Follow up: Response: No adverse reaction ph 09:15 Drug: Lidocaine (1 %) 1 vials Volume: 20 ml; Route: Infiltration; ph 09:40 Follow up: Response: No adverse reaction ph 09:39 Not Given (Other Intervention Used): Bupivacaine (0.5 %) 5 mg 10 ml Infiltration once ph 09:39 Not Given (Other Intervention Used): Lidocaine-Epinephrine -1%: (1:100,000) 5 ml 20 ml ph Infiltration once; to bedside Disposition: 10:43 Co-signature as Attending Physician, Karri Silva MD I agree with the assessment and kdr plan of care. Disposition: 02/09/20 09:38 Discharged to Home. Impression: left forearm laceration. - Condition is Stable. - Discharge Instructions: Laceration Care, Adult, [id number], Sutured Wound Care, [id number]. - Prescriptions for Keflex 500 mg Oral Capsule - take 1 capsule by ORAL route every 8 hours for 3 days; 9 capsule. - Medication Reconciliation Form, Thank You Letter, Antibiotic Education form. - Follow up: Private Physician; When: 2 - 3 days; Reason: If symptoms return, Further diagnostic work-up, Recheck today's complaints, Continuance of care, Re-evaluation by your physician. - Problem is new. - Symptoms have improved. - Notes: Sutures need to be takekn out in 12-14 days Signatures: Shanice Foster, AIRPLANE FLIGHT ATTENDANT SUPERVISOR-C AIRPLANE FLIGHT ATTENDANT SUPERVISOR-Ckb Karri Silva MD MD kdr Jerri Nguyen RN RN ph Corrections: (The following items were deleted from the chart) 10:05 09:38 02/09/2020 09:38 Discharged to Home. Impression: left forearm laceration. ph Condition is Stable. Forms are Medication Reconciliation Form, Thank You Letter, Antibiotic Education, Prescription Opioid Use. Follow up: Private Physician; When: 2 - 3 days; Reason: If symptoms return, Further diagnostic work-up, Recheck today's complaints, Continuance of care, Re-evaluation by your physician. Problem is new. Symptoms have improved. kdr
--- NOTE | 2020-02-09 09:38 | ER ---
Nurse's Notes [facility] Name: Brenna Nelson Age: 89 yrs Sex: Female : 1930 Arrival Date: 02/09/2020 Time: 07:46 Bed 7 Private MD: Diagnosis: left forearm laceration Presentation: 02/08 07:46 Chief complaint: EMS states: Pt from [facility], reports that she was in the restroom ph getting dressed for the day, went to sit on walker seat which rolled out from under her causing her to fall to her knees, laceration to L forearm, dressing in place, denies injury or LOC, unknown if pt takes blood thinners. Care prior to arrival: None. Mechanism of Injury: Fall out of chair. Trauma event details: Injury occurred in the [facility], Injury occurred: at home. Injury occurred: February 09, 2020. 07:46 Acuity: MAURILIO 4 ph 07:46 Method Of Arrival: EMS: [facility] ph 07:52 Coronavirus screen: Client denies travel out of the [place] in the last 14 days. At this ph time, the client does not indicate any symptoms associated with coronavirus-19. Ebola Screen: No symptoms or risks identified at this time. Initial Sepsis Screen: Does the patient meet any 2 criteria? No. Patient's initial sepsis screen is negative. Does the patient have a suspected source of infection? No. Patient's initial sepsis screen is negative. Risk Assessment: Do you want to hurt yourself or someone else? Patient reports no desire to harm self or others. Onset of symptoms was February 09, 2020. Triage Assessment: 07:53 General: Appears in no apparent distress. comfortable, well groomed, Behavior is calm, ph cooperative, appropriate for age. Pain: Complains of pain in palmar aspect of left forearm. Neuro: Level of Consciousness is awake, alert, obeys commands, Oriented to person, place, situation. Cardiovascular: Capillary refill < 3 seconds in bilateral fingers Patient's skin is warm and dry. Respiratory: Airway is patent Respiratory effort is even, unlabored, Respiratory pattern is regular, symmetrical. Derm: Skin is fragile, is thin, Skin is pink, warm \T\ dry. Musculoskeletal: Circulation, motion, and sensation intact. Range of motion: intact in all extremities. Injury Description: Laceration sustained to palmar aspect of left forearm is jagged, 2.6 to 7.5 cm long, not bleeding. Trauma Activation: Not Applicable Physician: ED Physician; Name: ; Notified At: ; Arrived At: Physician: General Surgeon; Name: ; Notified At: ; Arrived At: Physician: Radiology; Name: ; Notified At: ; Arrived At: Physician: Respiratory; Name: ; Notified At: ; Arrived At: Physician: Lab; Name: ; Notified At: ; Arrived At: Historical: - Allergies: 07:51 No Known Allergies; ph - Home Meds: 07:51 donepezil 10 mg Oral tab 1 tab nightly [Active]; famotidine 40 mg Oral tab 1 tab once ph daily [Active]; gabapentin 300 mg Oral cap 1 cap twice a day [Active]; lisinopril 20 mg Oral tab 1 tab once daily [Active]; memantine 5 mg Oral tab 2 times per day [Active]; Myrbetriq 25 mg Oral Tb24 1 tab once daily [Active]; Vitamin D Oral daily [Active]; - PMHx: 07:51 Dementia; Hypertension; Irregular heart rate; ph - PSHx: 07:51 back; ph - Immunization history:: Adult Immunizations unknown. - Social history:: Smoking status: Patient denies any tobacco usage or history of. - Immunization history: Last tetanus immunization: unknown. Screenin:52 Abuse screen: Denies threats or abuse. Denies injuries from another. Nutritional ph screening: No deficits noted. Tuberculosis screening: No symptoms or risk factors identified. Fall Risk Fall in past 12 months (25 points). Secondary diagnosis (15 points) dementia, No IV (0 pts). Ambulatory Aid- Crutches/Cane/Walker (15 pts). Gait- Normal/Bed Rest/Wheelchair (0 pts) Mental Status- Oriented to own ability (0 pts). Total Velasquez Fall Scale indicates High Risk Score (45 or more points). Fall prevention measures have been instituted. Side Rails Up X 2 Placed Close to Nursing Station Frequent Obs/Assessments Occuring Family Present and informed to notify staff if the need to leave the bedside As available patient and family educated on Fall Prevention Program and Strategies. Primary Survey: 08:02 NO uncontrolled hemorrhage observed. A: The patient is alert. Airway: patent, No ph supplemental oxygen in use on arrival. Oral cavity: clear, Trachea midline. Breathing/Chest: Respiratory pattern: regular, Respiratory effort: spontaneous, unlabored, Chest inspection: symmetrical rise and fall of the chest. Circulation: Skin color: pink, Skin temperature: warm, dry. Disability Alert. Exposure/Environment: There is no evidence of uncontrolled external bleeding. Obvious injury(ies) are noted at this time: laceration to L forearm. 09:43 Reassessment Airway Airway Patent Breathing/Chest Respiratory pattern Regular ph Respiratory effort Spontaneous Unlabored Circulation Color [place] Temperature Warm Dry Disability Alert. Assessment: 08:02 General: Appears in no apparent distress. comfortable, well groomed, Behavior is calm, ph cooperative, appropriate for age. Pain: Complains of pain in palmar aspect of left forearm. Neuro: Level of Consciousness is awake, alert, obeys commands, Oriented to person, place, situation. Cardiovascular: Capillary refill < 3 seconds in bilateral fingers Patient's skin is warm and dry. Respiratory: Airway is patent Respiratory effort is even, unlabored, Respiratory pattern is regular, symmetrical. GI: Derm: Skin is fragile, is thin, Skin is pink, warm \T\ dry. Musculoskeletal: Circulation, motion, and sensation intact. Range of motion: intact in all extremities. Injury Description: Laceration sustained to palmar aspect of left forearm is jagged, 2.6 to 7.5 cm long, not bleeding. 09:15 Reassessment: Patient appears in no apparent distress at this time. Patient and/or ph family updated on plan of care and expected duration. Pain level reassessed. Patient is alert, oriented x 3, equal unlabored respirations, skin warm/dry/pink. Orly CRACKING UNIT OPERATOR at bedside to suture laceration. Vital Signs: 07:52 BP 164 / 63; Pulse 60; Resp 18; Temp 98.1; Pulse Ox 99% on R/A; Weight 72.57 kg; ph 09:42 BP 154 / 63; Pulse 62; Resp 18; Temp 97.8; Pulse Ox 99% on R/A; ph Jonny Coma Score: 08:03 Eye Response: spontaneous(4). Verbal Response: oriented(5). Motor Response: obeys ph commands(6). Total: 15. 09:42 Eye Response: spontaneous(4). Verbal Response: oriented(5). Motor Response: obeys ph commands(6). Total: 15. Trauma Score (Adult): 08:03 Eye Response: spontaneous(1); Verbal Response: oriented(1); Motor Response: obeys ph commands(2); Systolic BP: > 89 mm Hg(4); Respiratory Rate: 10 to 29 per min(4); Jonny Score: 15; Trauma Score: 12 09:42 Eye Response: spontaneous(1); Verbal Response: oriented(1); Motor Response: obeys ph commands(2); Systolic BP: > 89 mm Hg(4); Respiratory Rate: 10 to 29 per min(4); Alta Score: 15; Trauma Score: 12 ED Course: 07:46 Patient arrived in ED. ph 07:48 Karri Silva MD is Attending Physician. kdr 07:50 Triage completed. ph 07:53 Arm band placed on Patient placed in an exam room, on a stretcher. ph 08:03 Patient has correct armband on for positive identification. Bed in low position. Call ph light in reach. Side rails up X2. Pulse ox on. NIBP on. Door closed. Noise minimized. Warm blanket given. 08:04 Patient maintains SpO2 saturation greater than 95% on room air. Thermoregulation: warm ph blanket given to patient. 08:06 Jerri Nguyen RN is Primary Nurse. ph 09:15 Assist provider with laceration repair on palmar aspect of left forearm that was ph between 2.6 to 7.5 cm using sutures. Set up tray. Performed by Shanice GARCIA Dressed with Kerlix, Neosporin, Patient tolerated well. 09:41 No provider procedures requiring assistance completed. Patient did not have IV access ph during this emergency room visit. Administered Medications: 09:00 Drug: Tetanus-Diphtheria Toxoid Adult 0.5 ml {Bioinformatics Developer: [employer]. Exp: ph 06/19/2022. Lot #: [id number]. } Route: IM; Site: left deltoid; 09:40 Follow up: Response: No adverse reaction ph 09:15 Drug: Lidocaine (1 %) 1 vials Volume: 20 ml; Route: Infiltration; ph 09:40 Follow up: Response: No adverse reaction ph 09:39 Not Given (Other Intervention Used): Bupivacaine (0.5 %) 5 mg 10 ml Infiltration once ph 09:39 Not Given (Other Intervention Used): Lidocaine-Epinephrine -1%: (1:100,000) 5 ml 20 ml ph Infiltration once; to bedside Intake: 08:03 PO: 0ml; Total: 0ml. ph Output: 08:03 Urine: 0ml; Total: 0ml. ph Outcome: 09:38 Discharge ordered by . yadiel 09:43 Patient's length of stay was not longer than 2 hours. ph 10:05 Discharged to home via wheelchair, with family. ph 10:05 Condition: good 10:05 Discharge instructions given to patient, family, Instructed on discharge instructions, follow up and referral plans. medication usage, Demonstrated understanding of instructions, follow-up care, medications, Prescriptions given X 1. 10:05 Patient left the ED. ph Signatures: Karri Silva MD MD kdr Jerri Nguyen RN RN ph
[2020-02-09 10:10] VITALS: O2SAT 99
[2020-02-09 10:12] VITALS: BP 154/63; TEMP 97.8
== END 2020-02-09 10:05 | disposition home or self-care (01) ==
LOC: ER 07:42
PROC: 0JQH0ZZ Repair Left Lower Arm Subcutaneous Tissue and Fascia, Open Approach (ICD-10-PCS; principal; 2020-02-09)
DX: S51.812A Laceration without foreign body of left forearm, initial encounter (principal); W07.XXXA Fall from chair, initial encounter; Y93.89 Activity, other specified; Y92.9 Unspecified place or not applicable; Z23 Encounter for immunization; I10 Essential (primary) hypertension; F03.90 Unspecified dementia, unspecified severity, without behavioral disturbance, psychotic disturbance, mood disturbance, and anxiety
CPT/HCPCS: 90471; 90714; 99284

== ENCOUNTER 2020-11-29 12:53 | Emergency (ER) | payer OTHER ==
--- NOTE | 2020-11-29 13:36 | ER ---
Nurse's Notes [facility] Name: Brenna Nelson Age: 89 yrs Sex: Female : 1930 Arrival Date: 11/29/2020 Time: 12:55 Bed Waiting Private MD: Diagnosis: Presentation: 11/29 12:56 Chief complaint: EMS states: Weakness, all over since 1130 this morning. With minimal ca1 assistance at this time, pt HX of dementia. She said she just feels tired all over. GCS 15, VSS. BP 180/90. HR 60s, SPO2 100%. 12:56 Method Of Arrival: EMS: [facility] ca1 13:34 Note registration Nathalia states, "She left with her daughter, she said she was feeling ca1 better and was able to walk to the restroom. Left at 1325". ED Course: 12:55 Patient arrived in ED. ca1 13:35 Patient's name was called from ER lobby. No response. Unable to locate patient. Will ca1 disposition as left without being seen by a provider. Administered Medications: No medications were administered Outcome: 13:36 Patient left the ED. ca1 Signatures: Daisy Shultz RN RN ca1
== END 2020-11-29 13:36 | disposition left against medical advice (07) ==
LOC: ER 12:53
DX: Z53.21 Procedure and treatment not carried out due to patient leaving prior to being seen by health care provider (principal)
CPT/HCPCS: 99282

== ENCOUNTER 2021-09-08 09:26 | Inpatient (IN) | payer OTHER ==
--- OUTSIDE RECORDS SUMMARY | 2021-09-08 09:29 | XMS REPORT | Continuity of Care Document ---
:1930 Author Organization [facility] t Address [address] [place] [address] [address] [place] [address] Care Team Providers Name Role Phone Guadalupe Janette Primary Care Physician LIA HOUGH Attending Clinician Unavailable LIA HOUGH Attending Clinician Unavailable Doctor Unassigned, Name Attending Clinician Unavailable Lia Hough MD Attending Clinician EDEL STEIN Attending Clinician Unavailable Payers Payer Name Policy Type Policy Number Effective Date Expiration Date S [facility] [id number] 2020 [employer] [facility] [place] 00:00:00 O UNITED MEDICARE [id number] 2020 HMO 00:00:00 [employer] PPO SELECT [id number] 2018 2020 ASO 00:00:00 00:00:00 Problems Condition Condition Condition Status Onset Resolution Last Treating Co mments Source Name Details Category Date Date Treatment Clinician Date No known No known Disease Unive rs active active ity of problems problems [facility] Allergies, Adverse Reactions, Alerts Allergy Allergy Status Severity Reaction(s) Onset Inactive Treating Comm ents Source Name Type Date Date Clinician BRIMONID Allergy Active [facility] CODEINE Allergy Active [facility] NO KNOWN Drug Active Univers ALLERGIE Class ity of S [facility] Social History Social Habit Start Date Stop Date Quantity Comments Source Exposure to Not sure [facility] SARS-CoV-2 (event) Medica l Branch Sex Assigned At [birth year] [facility] 00:00:00 00:00:00 Medical Branch Smoking Status Start Date Stop Date Source Unknown if ever smoked [facility] Medical Branch Medications Ordered Filled Start Stop Current Ordering Indication Dosage Frequency Signature Comments Components Source Medication Medication Date Date Medication? Clinician (SIG) Name Name memantine 5 Yes 5mg Take 5 mg U nivers mg tablet 9-17 by mouth. ity o f 10:28: [address] memantine 5 Yes 5mg Take 5 mg U nivers mg tablet 9-17 by mouth. ity o f 10:28: [address] memantine 5 Yes 5mg Take 5 mg U nivers mg tablet 9-17 by mouth. ity o f 10:28: [address] memantine 5 Yes 5mg Take 5 mg U nivers mg tablet 9-17 by mouth. ity o f 10:28: [address] MYRBETRIQ Yes 1{tbl} Take 1 Univ ers 50 mg 8-29 tablet by ity of tablet 00:00: mouth [place] 00 every Medical morning. Branch MYRBETRIQ Yes 1{tbl} Take 1 Univ ers 50 mg 8-29 tablet by ity of tablet 00:00: mouth [place] 00 every Medical morning. Branch MYRBETRIQ Yes 1{tbl} Take 1 Univ ers 50 mg 8-29 tablet by ity of tablet 00:00: mouth [place] 00 every Medical morning. Branch MYRBETRIQ Yes 1{tbl} Take 1 Univ ers 50 mg 8-29 tablet by ity of tablet 00:00: mouth [place] 00 every Medical morning. Branch DULoxetine Yes 20mg Take 20 mg U nivers 20 mg 8-19 by mouth ity of capsule 00:00: daily. [place] [facility] DULoxetine Yes 20mg Take 20 mg U nivers 20 mg 8-19 by mouth ity of capsule 00:00: daily. [place] [facility] DULoxetine Yes 20mg Take 20 mg U nivers 20 mg 8-19 by mouth ity of capsule 00:00: daily. [place] [facility] DULoxetine Yes 20mg Take 20 mg U nivers 20 mg 8-19 by mouth ity of capsule 00:00: daily. [place] [address] Medical Branch lisinopriL 2021-0 Yes 20mg Take 20 mg U nivers 20 mg 7-22 by mouth ity of tablet 00:00: at [place] [address] bedtime. Medical Branch lisinopriL 2021-0 Yes 20mg Take 20 mg U nivers 20 mg 7-22 by mouth ity of tablet 00:00: at [place] [address] bedtime. Medical Branch lisinopriL 2021-0 Yes 20mg Take 20 mg U nivers 20 mg 7-22 by mouth ity of tablet 00:00: at [place] [address] bedtime. Medical Branch lisinopriL 1-0 Yes 20mg Take 20 mg U nivers 20 mg 7-22 by mouth ity of tablet 00:00: at [place] [address] bedtime. Medical Branch famotidine 1-0 Yes 40mg Take 40 mg U nivers 40 mg 7-08 by mouth ity of tablet 00:00: at [place] [address] bedtime. Medical Branch famotidine 1-0 Yes 40mg Take 40 mg U nivers 40 mg 7-08 by mouth ity of tablet 00:00: at [place] [address] bedtime. Medical Branch famotidine 1-0 Yes 40mg Take 40 mg U nivers 40 mg 7-08 by mouth ity of tablet 00:00: at [place] [address] bedtime. Medical Branch famotidine 1-0 Yes 40mg Take 40 mg U nivers 40 mg 7-08 by mouth ity of tablet 00:00: at [place] [address] bedtime. Medical Branch donepeziL 1-0 Yes 10mg Take 10 mg Un neisha 10 mg 6-26 by mouth ity of tablet 00:00: at [place] [address] bedtime. Medical Branch donepeziL 2021-0 Yes 10mg Take 10 mg Un neisha 10 mg 6-26 by mouth ity of tablet 00:00: at [place] [address] bedtime. Medical Branch donepeziL 2021-0 Yes 10mg Take 10 mg Un niesha 10 mg 6-26 by mouth ity of tablet 00:00: at [place] [address] bedtime. Medical Branch donepeziL 2021-0 Yes 10mg Take 10 mg Un neisha 10 mg 6-26 by mouth ity of tablet 00:00: at [place] [address] bedtime. Medical Branch Vital Signs Vital Name Observation Time Observation Value Comments Source Systolic blood 2021-01-11 15:29:00 132 mm[Hg] Univer sity [facility] pressure [facility] Diastolic blood 2021-01-11 15:29:00 71 mm[Hg] Unive rsity [facility] pressure [facility] Heart rate 2021-01-11 15:29:00 58 /min [facility] Oxygen saturation 2021-01-11 15:29:00 96 /min Uni [facility] in Arterial blood Medical Br anch by Pulse oximetry HEIGHT 2020-10-01 11:03:00 167.6 cm WEIGHT 2020-10-01 11:03:00 78.019 kg Procedures Procedure Date / Time Performing Clinician Source Performed EXTERNAL PROVIDER 2021-06-06 06:01:00 Doctor Unassigned, No [facility] RECORDS Name [facility] VACCINATIONS - 2021-03-23 06:01:00 Doctor Unassigned, No [facility] CONSENTS, ELIGIBILITY, Name Medical B [facility] HISTORY Encounters Start End Encounter Admission Attending Care Care Encounter Source Date/Time Date/Time Type Type Clinicians Facility Department ID 2021-12-13 2021-12-[address] [facility] [id number] Univers 10:40:00 10:40:00 [facility] [id number] [facility] 2021-12-13 2021-12-[address] [facility] [id number] Univers 10:40:00 10:40:00 ARPAN HOUGH itjay jay [facility] 2021-06-06 2021-06-06 Orders Doctor CHARMAINE [id number] Univers 00:00:00 00:00:00 Only Unassigned, EILEEN [id number] ity of [place] [facility] [id number] Silver as [id number] [address] 2021-03-23 2021-03-23 Orders Doctor CHARMAINE [id number] Univers 00:00:00 00:00:00 Only Unassigned, EILEEN [id number] ity of [place] [facility] [id number] Silver as [id number] [address] 2021-02-27 2021-02-27 Telephone [place] [facility] [id number] Univers 00:00:00 00:00:00 [facility] [id number] ity of [place] [id number] Silver as CHU?BLEA [id number] [address] MEDICAL OFFICE BUILDING 2021-01-16 2021-01-16 Outpatient SARITA, [facility] [id number] 00:00:00 00:00:00 [facility] 2021-01-11 2021-01-11 [facility] [id number] Univers 09:53:28 11:47:01 Visit [facility] [id number] ity of [place] [id number] Silver as Cuh?Blea [phone] [address] Medical Office [facility] 2021-01-11 2021-01-11 [address] R [address] [facility] [id number] Univers 10:00:00 10:00:00 [facility] 2021-01-11 2021-01-11 Letter Doctor CHARMAINE [id number] Univers 00:00:00 00:00:00 (Out) Unassigned, EILEEN [id number] ity of [place] [facility] [id number] Silver as [id number] [facility] [address] [place] 2020-12-24 2020-12-24 Outpatient SARITA, [facility] [id number] 00:00:00 00:00:00 [facility] 2020-10-01 2020-10-01 Outpatient SARITA, [facility] [id number] 00:00:00 00:00:00 [facility] 2020-09-19 2020-09-19 Outpatient SARITA, [facility] [id number] 00:00:00 00:00:00 [facility] 2018-11-15 2018-11-15 Outpatient EL SARITA, [facility] [id number] 11:34:59 12:30:06 [facility] Results This patient has no known results.
[2021-09-08] MEDS ORDERED: MORPHINE 4 MG/ML SYR ONE (10:00)
[2021-09-08] MEDS ORDERED: ONDANSETRON 4 MG/2 ML VIAL ONE (10:00)
[2021-09-08 10:04] LABS: Absolute Lymphocytes (CBC) 0.6 K/uL (0.7-4.9); Hematocrit 37.8 % (36.0-45.0); Lymphocytes % 7.4 % (15.3-44.8); MPV 8.3 fL (7.6-11.3); RBC Red Blood Cell Count 4.16 M/uL (3.86-4.86)
--- NOTE | 2021-09-08 10:34 | RAD REPORT ---
EXAM DESCRIPTION: CTSpine Lumbar Wo Con09/08/2021 10:21 am CLINICAL HISTORY: Back pain COMPARISON: None TECHNIQUE: Computed axial tomography lumbar spine was obtained with coronal and sagittal reconstruct ion. All CT scans are performed using dose optimization technique as appropriate and may include automated exposure control or mA/KV adjustment according to patient size. FINDINGS: Disc space thinning and desiccation L3-4. Mild to moderate anterior subluxation L3 on L4. Small right lateral disc herniation. Mild anterior subluxation of L4 on L5. Disc desiccation. Ligamentum flavum and facet hypertrophy. Mil d narrowing of the thecal sac. Disc bulge. Moderate to marked narrowing of the neural foramina bilate rally. Mild nondisplaced fractures right and left proximal sacrum IMPRESSION: Mild nondisplaced fractures right and left proximal sacrum likely sacral insufficiency f ractures Small right lateral disc herniation L3-4. 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
[2021-09-08 10:55] LABS: Albumin 3.2 g/dL (3.4-5.0); Potassium 3.8 mmol/L (3.5-5.1); Protein, Total 6.5 g/dL (6.4-8.2)
--- NOTE | 2021-09-08 11:19 | ER ---
Nurse's Notes [facility] Name: Brenna Nelson Age: 89 yrs Sex: Female : 1930 Arrival Date: 09/08/2021 Time: 09:30 Bed 14 Private MD: Diagnosis: Low back pain-sacral fracture Presentation: 09/08 09:39 Chief complaint: EMS states: "pt reporting lower back pain since yesterday morning. she jd3 reports it hurts to move it. we gave 975 mg of Tylenol.". Coronavirus screen: At this time, the client does not indicate any symptoms associated with coronavirus-19. Ebola Screen: No symptoms or risks identified at this time. Initial Sepsis Screen: Does the patient meet any 2 criteria? No. Patient's initial sepsis screen is negative. Does the patient have a suspected source of infection? No. Patient's initial sepsis screen is negative. Risk Assessment: Do you want to hurt yourself or someone else? Patient reports no desire to harm self or others. Onset of symptoms was September 08, 2021. 09:39 Method Of Arrival: EMS: [facility] jd3 09:39 Acuity: MAURILIO 3 jd3 Historical: - Allergies: 09:31 No Known Allergies; jd3 - Home Meds: 09:31 Vitamin D Oral daily [Active]; donepezil 10 mg Oral tab 1 tab nightly [Active]; jd3 famotidine 40 mg Oral tab 1 tab once daily [Active]; gabapentin 300 mg Oral cap 1 cap twice a day [Active]; lisinopril 20 mg Oral tab 1 tab once daily [Active]; memantine 5 mg Oral tab 2 times per day [Active]; Myrbetriq 25 mg Oral Tb24 1 tab once daily [Active]; - PMHx: 09:31 Dementia; Hypertension; Irregular heart rate; jd3 - Immunization history:: Adult Immunizations up to date, Client reports receiving the 2nd dose of the Covid vaccine. - Social history:: Smoking status: Patient denies any tobacco usage or history of. Screenin:41 Abuse screen: Denies threats or abuse. Nutritional screening: No deficits noted. jd3 Tuberculosis screening: No symptoms or risk factors identified. Fall Risk Ambulatory Aid- None/Bed Rest/Nurse Assist (0 pts). Gait- Normal/Bed Rest/Wheelchair (0 pts) Mental Status- Oriented to own ability (0 pts). Total Velasquez Fall Scale indicates No Risk (0-24 pts). Assessment: 09:40 General: Appears in no apparent distress. comfortable, Behavior is calm, cooperative, jd3 appropriate for age. Pain: Complains of pain in low back area Quality of pain is described as crampy, sharp, pinching. Neuro: Carpio Agitation-Sedation Scale (RASS): 0 - Alert and Calm Level of Consciousness is awake, alert, obeys commands, Oriented to person, place, at baseline per family. Cardiovascular: Capillary refill < 3 seconds Patient's skin is warm and dry. Respiratory: Airway is patent Respiratory effort is even, unlabored, Respiratory pattern is regular, symmetrical, Denies cough, shortness of breath. GI: No signs and/or symptoms were reported involving the gastrointestinal system. : No signs and/or symptoms were reported regarding the genitourinary system. EENT: No signs and/or symptoms were reported regarding the EENT system. Derm: Skin is intact, Skin is dry, Skin is normal, Skin temperature is warm. Musculoskeletal: Circulation, motion, and sensation intact. Range of motion: intact in all extremities. 10:47 Reassessment: Patient appears in no apparent distress at this time. No changes from jd3 previously documented assessment. Patient and/or family updated on plan of care and expected duration. Pain level reassessed. Patient states feeling better. 12:17 Reassessment: Patient appears in no apparent distress at this time. No changes from jd3 previously documented assessment. Patient and/or family updated on plan of care and expected duration. Pain level reassessed. awaiting admission\\E\\. 13:41 Reassessment: Patient appears in no apparent distress at this time. No changes from jd3 previously documented assessment. Patient and/or family updated on plan of care and expected duration. Pain level reassessed. resting in bed. awaiting admission. 15:09 Reassessment: Patient appears in no apparent distress at this time. No changes from jd3 previously documented assessment. Patient and/or family updated on plan of care and expected duration. Pain level reassessed. 16:29 Reassessment: Patient appears in no apparent distress at this time. Patient and/or jd3 family updated on plan of care and expected duration. Pain level reassessed. report given to Cristobal CAMPOS. Vital Signs: 09:40 BP 172 / 69; Pulse 66; Resp 18 S; Temp 98.2(TE); Pulse Ox 98% on R/A; Weight 72.57 kg jd3 (R); Height 5 ft. 4 in. (162.56 cm) (R); Pain 10/10; 10:47 BP 121 / 54; Pulse 59; Resp 18 S; Pulse Ox 94% on 2 lpm NC; jd3 12:18 BP 142 / 54; Pulse 60; Resp 17 S; Pulse Ox 98% on 2 lpm NC; jd3 13:42 BP 97 / 51; Pulse 57; Resp 17 S; Pulse Ox 95% on R/A; jd3 15:09 BP 107 / 64; Pulse 58; Resp 18 S; Pulse Ox 96% on R/A; jd3 16:30 BP 100 / 51; Pulse 60; Resp 18 S; Pulse Ox 96% on R/A; jd3 09:40 Body Mass Index 27.46 (72.57 kg, 162.56 cm) j ED Course: 09:30 Patient arrived in ED. jd3 09:31 Akhil Lynn RN is Primary Nurse. jd3 09:37 James Yao MD is Attending Physician. ma2 09:40 Triage completed. jd3 09:40 Arm band placed on. jd3 09:41 Patient has correct armband on for positive identification. Bed in low position. Call j light in reach. Side rails up X2. Adult w/ patient. Pulse ox on. NIBP on. 09:53 Inserted saline lock: 22 gauge in right antecubital area, using aseptic technique. jd3 Blood collected. 10:23 CT Lumbar Spine Wo Con In Process Unspecified. EDMS 10:37 COVID swab sent to lab. tm3 11:18 Barber Guadalupe MD is Hospitalizing Provider. ma2 15:09 No provider procedures requiring assistance completed. Patient admitted, IV remains in jd3 place. Administered Medications: 10:00 Drug: Zofran (Ondansetron) 4 mg Route: IVP; Site: right antecubital; jd3 11:00 Follow up: Response: No adverse reaction jd3 10:00 Drug: morphine 4 mg Route: IVP; Site: right antecubital; jd3 11:00 Follow up: Response: No adverse reaction; RASS: Drowsy (-1) jd3 Medication: 09:41 VIS not applicable for this client. jd3 Outcome: 11:19 Decision to Hospitalize by Provider. ma2 16:30 Admitted to Med/surg accompanied by tech, via stretcher, room 204, with chart, Report jd3 called to Cristobal CAMPOS 16:30 Condition: stable 16:30 Instructed on the need for admit. 16:44 Patient left the ED. jd3 Signatures: Dispatcher [employer] ED Korina Kavon tm3 Akhil Lynn RN RN jd3 James Yao MD MD ma2 Corrections: (The following items were deleted from the chart) 13:42 09:40 Neuro: Carpio Agitation-Sedation Scale (RASS): 0 - Alert and Calm Level of jd3 Consciousness is awake, alert, obeys commands, Oriented to person, place, time, situation, jd3 13:42 10:47 Reassessment: Patient appears in no apparent distress at this time. Patient jd3 and/or family updated on plan of care and expected duration. Pain level reassessed. Patient is alert, oriented x 3, equal unlabored respirations, skin warm/dry/pink. Patient states feeling better. jd3 13:42 12:17 Reassessment: Patient appears in no apparent distress at this time. Patient jd3 and/or family updated on plan of care and expected duration. Pain level reassessed. Patient is alert, oriented x 3, equal unlabored respirations, skin warm/dry/pink. awaiting admission\\E\\ jd3
--- NOTE | 2021-09-08 11:19 | EDPHYS ---
Physician Documentation [facility] Name: Brenna Nelson Age: 89 yrs Sex: Female : 1930 Arrival Date: 09/08/2021 Time: 09:30 Bed 14 Private MD: ED Physician James Yao HPI: 09/08 09:40 This 89 yrs old Female presents to ER via EMS with complaints of Back pain. ma2 09:40 20-year-old female presents with low back pain that is been intermittent for the last ma2 few days got worse this morning, pain is worse with movement, she had similar pain in the past however pain got severe today she is unable to walk due to pain, patient is also unable to move as it hurts every time she moves. Patient states she does not have any change in sensation, no focal weakness in either either legs, denies change in urination no incontinence or retention of urine, no saddle anesthesia no back trauma or fever.. Historical: - Allergies: :31 No Known Allergies; jd3 - Home Meds: 09:31 Vitamin D Oral daily [Active]; donepezil 10 mg Oral tab 1 tab nightly [Active]; jd3 famotidine 40 mg Oral tab 1 tab once daily [Active]; gabapentin 300 mg Oral cap 1 cap twice a day [Active]; lisinopril 20 mg Oral tab 1 tab once daily [Active]; memantine 5 mg Oral tab 2 times per day [Active]; Myrbetriq 25 mg Oral Tb24 1 tab once daily [Active]; - PMHx: 09:31 Dementia; Hypertension; Irregular heart rate; jd3 - Immunization history:: Adult Immunizations up to date, Client reports receiving the 2nd dose of the Covid vaccine. - Social history:: Smoking status: Patient denies any tobacco usage or history of. ROS: 09:42 Constitutional: Negative for fever, chills, and weight loss. ma2 09:42 All other systems are negative. Exam: 09:42 Constitutional: This is a well developed, well nourished patient who is awake, alert, ma2 and in no acute distress. Head/Face: Normocephalic, atraumatic. Eyes: Pupils equal round and reactive to light, extra-ocular motions intact. Lids and lashes normal. Conjunctiva and sclera are non-icteric and not injected. Cornea within normal limits. Periorbital areas with no swelling, redness, or edema. ENT: Nares patent. No nasal discharge, no septal abnormalities noted. Tympanic membranes are normal and external auditory canals are clear. Oropharynx with no redness, swelling, or masses, exudates, or evidence of obstruction, uvula midline. Mucous membranes moist. Neck: Trachea midline, no thyromegaly or masses palpated, and no cervical lymphadenopathy. Supple, full range of motion without nuchal rigidity, or vertebral point tenderness. No Meningismus. Chest/axilla: Normal chest wall appearance and motion. Nontender with no deformity. No lesions are appreciated. Cardiovascular: Regular rate and rhythm with a normal S1 and S2. No gallops, murmurs, or rubs. Normal PMI, no JVD. No pulse deficits. Respiratory: Lungs have equal breath sounds bilaterally, clear to auscultation and percussion. No rales, rhonchi or wheezes noted. No increased work of breathing, no retractions or nasal flaring. Abdomen/GI: Soft, non-tender, with normal bowel sounds. No distension or tympany. No guarding or rebound. No evidence of tenderness throughout. Back: There is right paraspinal muscle tenderness and gluteal muscle tenderness over it side lateral of the visit of L4-L5, otherwise no midline tenderness no spinal tenderness. No costovertebral tenderness. Full range of motion. Skin: Warm, dry with normal turgor. Normal color with no rashes, no lesions, and no evidence of cellulitis. MS/ Extremity: Pulses equal, no cyanosis. Neurovascular intact. Full, normal range of motion. Neuro: Awake and alert, GCS 15, oriented to person, place, time, and situation. Cranial nerves II-XII grossly intact. Motor strength 5/5 in all extremities. Sensory grossly intact. Cerebellar exam normal. Normal gait. Vital Signs: 09:40 BP 172 / 69; Pulse 66; Resp 18 S; Temp 98.2(TE); Pulse Ox 98% on R/A; Weight 72.57 kg jd3 (R); Height 5 ft. 4 in. (162.56 cm) (R); Pain 10/10; 10:47 BP 121 / 54; Pulse 59; Resp 18 S; Pulse Ox 94% on 2 lpm NC; jd3 12:18 BP 142 / 54; Pulse 60; Resp 17 S; Pulse Ox 98% on 2 lpm NC; jd3 13:42 BP 97 / 51; Pulse 57; Resp 17 S; Pulse Ox 95% on R/A; jd3 15:09 BP 107 / 64; Pulse 58; Resp 18 S; Pulse Ox 96% on R/A; jd3 16:30 BP 100 / 51; Pulse 60; Resp 18 S; Pulse Ox 96% on R/A; jd3 09:40 Body Mass Index 27.46 (72.57 kg, 162.56 cm) d3 MDM: 09:37 Patient medically screened. ut2 09:42 Differential diagnosis: Joint Injury Ligament Injury Osteoarthritis sprain. [facility] 11:18 Data reviewed: vital signs, nurses notes. Counseling: I had a detailed discussion with ma2 the patient and/or guardian regarding: the historical points, exam findings, and any diagnostic results supporting the discharge/admit diagnosis, the presence of at least one elevated blood pressure reading (>120/80) during this emergency department visit, the need for outpatient follow up. Response to treatment: the patient's symptoms have markedly improved after treatment. 09/08 09:40 Order name: CBC with Diff; Complete Time: 10:49 [facility] 09/08 09:40 Order name: Comprehensive Metabolic Panel; Complete Time: 11:19 [facility] 09/08 09:40 Order name: Lipase; Complete Time: 11:19 [facility] 09/08 10:30 Order name: SARS-COV-2 RT PCR (Document "Date of Onset" if Symptomatic) [facility] 09/08 11:25 Order name: Basic Metabolic Panel [facility] 09/08 11:25 Order name: Basic Metabolic Panel [facility] 09/08 09:40 Order name: CT Lumbar Spine Wo Con; Complete Time: 10:49 [facility] 09/08 09:40 Order name: IV Saline Lock; Complete Time: 09:53 [facility] 09/08 09:40 Order name: NPO; Complete Time: 09:43 [facility] 09/08 11:25 Order name: CBC with Automated Diff EDMS 09/08 11:25 Order name: CBC with Automated Diff EDMS 09/08 11:25 Order name: Regular EDMS Administered Medications: 10:00 Drug: Zofran (Ondansetron) 4 mg Route: IVP; Site: right antecubital; jd3 11:00 Follow up: Response: No adverse reaction jd3 10:00 Drug: morphine 4 mg Route: IVP; Site: right antecubital; jd3 11:00 Follow up: Response: No adverse reaction; RASS: Drowsy (-1) jd3 Disposition Summary: 09/08/21 11:19 Hospitalization Ordered Hospitalization Status: Observation ma2 Provider: Barber Guadalupe Location: Telemetry/MedSurg (observation) ma2 Condition: Stable ma2 Problem: new ma2 Symptoms: are unchanged ma2 Bed/Room Type: Standard ma2 Room Assignment: [facility](09/08/21 14:56) Diagnosis - Low back pain - sacral fracture(09/08/21 11:19) ma2 Forms: - Medication Reconciliation Form ma2 - SBAR form ma2 Signatures: Dispatcher [employer] Carmel Escudero RN RN iw Davies, Jonathon, RN RN jd3 Alzahri, Mohammad, MD MD ma2 Corrections: (The following items were deleted from the chart) 11:19 11:19 Low back pain ma2 ma2 14:56 11:19 ma2 iw
[2021-09-08] MEDS ORDERED: MORPHINE 2 MG/ML SYR IV PRN (11:21)
[2021-09-08] MEDS ORDERED: ACETAMINOPHEN 500 MG TAB PO PRN (11:21)
[2021-09-08] MEDS ORDERED: HYDROCODONE/APAP 5/325 MG TAB PO PRN (11:21)
[2021-09-08 17:17] VITALS: BMI 27.4
[2021-09-08] MEDS: ENOXAPARIN 40 MG/0.4 ML SQ SCH (17:27)
[2021-09-08] MEDS: CELECOXIB 100 MG CAPSULE PO SCH (20:36)
[2021-09-08] MEDS: DONEPEZIL HCL 5 MG TAB PO SCH (20:36)
[2021-09-08] MEDS: MEMANTINE HCL 10 MG TABLET PO SCH (20:36)
[2021-09-08] MEDS: FAMOTIDINE 20 MG TAB PO SCH (20:37)
[2021-09-08] MEDS: lisinopriL 20 MG TAB PO SCH (20:37)
[2021-09-09 05:56] LABS: Absolute Lymphocytes (CBC) 0.7 K/uL (0.7-4.9); Hematocrit 35.4 % (36.0-45.0); Lymphocytes % 10.5 % (15.3-44.8); MPV 8.9 fL (7.6-11.3); RBC Red Blood Cell Count 3.89 M/uL (3.86-4.86)
[2021-09-09 06:00] LABS: Potassium 3.7 mmol/L (3.5-5.1)
[2021-09-09] MEDS ORDERED: MAGNESIUM HYDROXIDE 8% 30 ML PO PRN (07:26)
[2021-09-09] MEDS ORDERED: ACETAMINOPHEN 500 MG TAB PO PRN (07:27)
[2021-09-09] MEDS: CELECOXIB 100 MG CAPSULE PO SCH ×2 (08:37→21:38)
[2021-09-09] MEDS: DULOXETINE 20 MG CAP PO SCH (08:37)
[2021-09-09] MEDS: ACETAMINOPHEN 500 MG TAB PO SCH ×3 (08:37→21:40)
[2021-09-09] MEDS: HYDROCODONE/APAP 5/325 MG TAB PO SCH ×3 (08:38→21:38)
[2021-09-09] MEDS: AMLODIPINE 5 MG TAB PO SCH (08:39)
[2021-09-09] MEDS: MEMANTINE HCL 10 MG TABLET PO SCH ×2 (08:39→21:39)
[2021-09-09] MEDS: DOCUSATE NA/SENNA CONC 1 TAB PO SCH ×2 (08:39→21:37)
--- NOTE | 2021-09-09 12:11 | RAD REPORT ---
EXAM DESCRIPTION: RAD - Hip Bilateral With Pelvis - 09/09/2021 9:12 am CLINICAL HISTORY: Hip pain FINDINGS: Osteoporosis. No fracture or dislocation seen If patient continues to have symptoms to suggest occult fracture MRI would be recommended
[2021-09-09] MEDS: ENOXAPARIN 40 MG/0.4 ML SQ SCH (16:44)
[2021-09-09] MEDS: lisinopriL 20 MG TAB PO SCH (21:38)
[2021-09-09] MEDS: FAMOTIDINE 20 MG TAB PO SCH (21:39)
[2021-09-09] MEDS: DONEPEZIL HCL 5 MG TAB PO SCH (21:39)
[2021-09-10] MEDS ORDERED: NA CHLORIDE 0.9% 1,000 ML IV SCH (07:00)
[2021-09-10] MEDS: DULOXETINE 20 MG CAP PO SCH (09:36)
[2021-09-10] MEDS: DOCUSATE NA/SENNA CONC 1 TAB PO SCH ×2 (09:36→20:51)
[2021-09-10] MEDS: CELECOXIB 100 MG CAPSULE PO SCH ×2 (09:37→20:50)
[2021-09-10] MEDS: MEMANTINE HCL 10 MG TABLET PO SCH ×2 (09:37→20:51)
[2021-09-10] MEDS: AMLODIPINE 5 MG TAB PO SCH (09:37)
[2021-09-10] MEDS: HYDROCODONE/APAP 5/325 MG TAB PO SCH ×3 (09:38→20:51)
[2021-09-10] MEDS: ACETAMINOPHEN 500 MG TAB PO SCH ×3 (09:39→21:00)
[2021-09-10] MEDS: ENOXAPARIN 40 MG/0.4 ML SQ SCH (16:43)
[2021-09-10] MEDS: FAMOTIDINE 20 MG TAB PO SCH (20:50)
[2021-09-10] MEDS: DONEPEZIL HCL 5 MG TAB PO SCH (20:51)
[2021-09-10] MEDS: lisinopriL 20 MG TAB PO SCH (21:01)
[2021-09-11 06:04] LABS: Absolute Lymphocytes (CBC) 1.3 K/uL (0.7-4.9); Hematocrit 36.1 % (36.0-45.0); Lymphocytes % 23.9 % (15.3-44.8); MPV 8.6 fL (7.6-11.3); RBC Red Blood Cell Count 3.96 M/uL (3.86-4.86)
[2021-09-11 06:15] LABS: Magnesium 2.1 mg/dL (1.8-2.4); Potassium 3.8 mmol/L (3.5-5.1)
--- NOTE | 2021-09-11 07:09 | PN ---
Date of Progress Note: 09/10/2021 Subjective: The patient was seen this morning for followup. Her son was present with her at bedside . No new complaints or problems reported by the patient or her son. She participated well with phys ical therapy yesterday and started to ambulate. Her back pain is under good control with current eddie n medication. She did urinate 3 times last night, adequate amount of urine as nursing staff reported and did have bowel movement. Objective: Vital Signs: Reviewed. HEENT: Unremarkable. Lungs: Clear to auscultation. Heart: Heart sounds normal. Abdomen: Soft, bowel sounds normal. No guarding, rigidity, tenderness, or distention. Extremities: No leg edema. Impression: 1.Insufficiency fracture, sacrum. 2.Osteoarthritis, multiple sites. 3.Hypertension. 4.Dementia. Plan: We will go ahead and continue current medication, continue current pain medications and antihy pertensive therapy. We will continue Lovenox for DVT prophylaxis. The patient's son informed me javier t family would like for the patient to try to go to the fifth floor rehab if possible and I am not gutierrez re if insurance company will approve this or not, but I did inform him about that, but the family is requesting us to go through insurance to see whether they will approve inpatient rehab or not and if insurance denies, then they are willing to take her to custodial facility. With that, I have r [facility] Social Service to assist us with referral to inpatient rehab. I will see her tomorrow for followup. JOSE/MODL Voice ID: [id number] Report ID: [id number]
[2021-09-11] MEDS: CELECOXIB 100 MG CAPSULE PO SCH ×2 (09:25→21:07)
[2021-09-11] MEDS: DULOXETINE 20 MG CAP PO SCH (09:26)
[2021-09-11] MEDS: DOCUSATE NA/SENNA CONC 1 TAB PO SCH ×2 (09:26→21:07)
[2021-09-11] MEDS: AMLODIPINE 5 MG TAB PO SCH (09:26)
[2021-09-11] MEDS: HYDROCODONE/APAP 5/325 MG TAB PO SCH ×3 (09:26→21:08)
[2021-09-11] MEDS: MEMANTINE HCL 10 MG TABLET PO SCH ×2 (09:27→21:06)
[2021-09-11] MEDS: ACETAMINOPHEN 500 MG TAB PO SCH ×3 (09:27→21:07)
[2021-09-11 09:50] LABS: Urine Appearance Clear (Clear); Urine Bilirubin Negative (Negative); Urine Blood Trace-intact (Negative); Urine Color Yellow (Yellow); Urine Glucose Negative (Negative); Urine Protein Negative (Negative); Urine Specific Gravity 1.015 (1.005-1.030); Urine Urobilinogen 0.2 mg/dL (0.2-1.0)
[2021-09-11 09:51] LABS: Urine Microscopic Reflex ORDER UMIC
[2021-09-11 09:56] LABS: Urine Bacteria NONE SEEN /HPF (<20); Urine RBC <5 /HPF (NONE SEEN)
[2021-09-11] MEDS: ENOXAPARIN 40 MG/0.4 ML SQ SCH (16:39)
[2021-09-11] MEDS: DONEPEZIL HCL 5 MG TAB PO SCH (21:06)
[2021-09-11] MEDS: FAMOTIDINE 20 MG TAB PO SCH (21:08)
[2021-09-11] MEDS: lisinopriL 20 MG TAB PO SCH (21:09)
--- NOTE | 2021-09-12 00:29 | PN ---
Date of Progress Note: 09/11/2021 Subjective: The patient was seen this morning for followup. No new complaints or problems reported by the patient. She was lying in bed, not in distress. Her back pain is well controlled with curren t pain medications. Denies any nausea, vomiting. She is participating well with physical therapy. Objective: Vital Signs: Reviewed. HEENT: Unremarkable. Lungs: Clear to auscultation. Heart: Sounds normal. Abdomen: Soft. Bowel sounds normal. No guarding, rigidity, tenderness, distention. Extremities: No leg edema. Laboratory Data: White count 5.5, hemoglobin 12, platelets 166. Sodium 141, potassium 3.8, chloride 110, bicarb 26, BUN 18, creatinine 0.65, glucose 93. Magnesium 2.1. Impression: 1.Insufficiency fracture of sacrum. 2.Osteoarthritis, multiple sites. 3.Hypertension. 4.Senile dementia. Plan: We will go ahead and continue current pain medication. Continue current antihypertensive medi cation and DVT prophylaxis with Lovenox. Physical Therapy to continue to work with the patient, and Social Service is working with insurance company trying to get approval for inpatient rehab benefit. If insurance denies that, in that case family is going to take her to [facility] facility. JOSE/MODL Voice ID: [id number] Report ID: [id number]
[2021-09-12] MEDS: DULOXETINE 20 MG CAP PO SCH (08:52)
[2021-09-12] MEDS: HYDROCODONE/APAP 5/325 MG TAB PO SCH ×3 (08:53→21:04)
[2021-09-12] MEDS: CELECOXIB 100 MG CAPSULE PO SCH ×2 (08:53→21:03)
[2021-09-12] MEDS: DOCUSATE NA/SENNA CONC 1 TAB PO SCH ×2 (08:53→21:02)
[2021-09-12] MEDS: MEMANTINE HCL 10 MG TABLET PO SCH ×2 (08:54→21:03)
[2021-09-12] MEDS: ACETAMINOPHEN 500 MG TAB PO SCH ×3 (08:54→21:03)
[2021-09-12] MEDS: AMLODIPINE 5 MG TAB PO SCH (08:54)
[2021-09-12] MEDS: ENOXAPARIN 40 MG/0.4 ML SQ SCH (16:30)
[2021-09-12] MEDS: DONEPEZIL HCL 5 MG TAB PO SCH (21:02)
[2021-09-12] MEDS: FAMOTIDINE 20 MG TAB PO SCH (21:04)
[2021-09-12] MEDS: lisinopriL 20 MG TAB PO SCH (21:04)
[2021-09-12 23:41] VITALS: O2SAT 97
--- NOTE | 2021-09-13 01:42 | PN ---
Date of Progress Note: 09/12/2021 Subjective: Patient was seen this morning for followup. No new complaints or problems reported by p atient lying in bed, not in distress. Denies any nausea, vomiting. Reports that she had a bowel mov ement yesterday and back pain is under control with current medication. Objective: Vital Signs: Reviewed. HEENT: Unremarkable. Lungs: Clear to auscultation. Cardiac: Heart sounds normal. Abdomen: Soft. Bowel sounds normal. No guarding, rigidity, tenderness, or distention. Extremities: No leg edema. Impression: 1.Insufficiency fracture of sacrum. 2.Hypertension. 3.Senile dementia. 4.Osteoarthritis, multiple sites. 5.Overactive bladder. Plan: We will go ahead and continue current medication, continue current pain medication and physica l therapy to continue to work with patient. Social service is working with insurance [employer] rehab benefit, and if that does not work out, then she will [facility] to [facility] facility. Merari sheth current DVT prophylaxis. JOSE/MODL Voice ID: [id number] Report ID: [id number]
[2021-09-13] MEDS: AMLODIPINE 5 MG TAB PO SCH (09:42)
[2021-09-13] MEDS: DOCUSATE NA/SENNA CONC 1 TAB PO SCH (09:42)
[2021-09-13] MEDS: CELECOXIB 100 MG CAPSULE PO SCH (09:42)
[2021-09-13] MEDS: DULOXETINE 20 MG CAP PO SCH (09:42)
[2021-09-13] MEDS: MEMANTINE HCL 10 MG TABLET PO SCH (09:43)
[2021-09-13] MEDS: HYDROCODONE/APAP 5/325 MG TAB PO SCH ×2 (09:43→14:16)
[2021-09-13] MEDS: ACETAMINOPHEN 500 MG TAB PO SCH ×2 (09:44→14:15)
--- NOTE | 2021-09-13 13:12 | PN ---
Date of Progress Note: 09/13/2021 Subjective: The patient was seen this morning for followup. No new complaints or problems reported by the patient. Lying in bed, not in distress. Back pain is well controlled with current medication . Objective: Vital Signs: Reviewed. The patient does report that she did ambulate yesterday with Phy sical Therapy. HEENT: Unremarkable. Lungs: Clear to auscultation. Heart: Sounds normal. Abdomen: Soft. Bowel sounds normal. No guarding, rigidity, tenderness, or distention. Extremities: No leg edema. Impression: 1.Insufficiency fracture of sacrum. 2.Hypertension. 3.Senile dementia. Plan: We will go ahead and continue current pain medications which is Tylenol and hydrocodone. We w ill discontinue morphine order now and Physical Therapy to continue to work with the patient and we a re waiting for Social Service to get approval from insurance company regarding rehab. If insurance d enies rehab done, obviously family will take her to [facility] facility. I will see her tomorro w for followup. JOSE/MODL Voice ID: [id number] Report ID: [id number]
[2021-09-13] MEDS: ENOXAPARIN 40 MG/0.4 ML SQ SCH (17:00)
[2021-09-13 17:35] VITALS: BP 142/66; TEMP 97.3
== END 2021-09-13 17:53 | DRG 552 ==
LOC: ER 09:26 → ERHOLD 11:21 → OBSVTOIN 16:20 → 2ND 16:36
PROVIDERS: ADMIT Internal Medicine; ATTEND Internal Medicine
DX: S32.10XA Unspecified fracture of sacrum, initial encounter for closed fracture (principal); M15.9 Polyosteoarthritis, unspecified; I10 Essential (primary) hypertension; F03.90 Unspecified dementia, unspecified severity, without behavioral disturbance, psychotic disturbance, mood disturbance, and anxiety; N32.81 Overactive bladder; Z20.822 Contact with and (suspected) exposure to COVID-19
CPT/HCPCS: 36415; 72131; 73521; 80048; 80053; 81003; 81015; 83690; 83735; 85025; 96374; 96375; 97116; 97161; 97530; 99285; G0378; J1650; J2270; J2405; U0003

== ENCOUNTER 2021-09-19 13:57 | Inpatient (IN) | payer OTHER ==
--- NOTE | 2021-09-25 10:59 | R.PREADM ---
PRE-ADMISSION SCREENING FORM SCREENING DATE AND TIME 09/19/2021 14:01 (CDT) ANTICIPATED REHAB ADMISSION DATE 09/21/2021 REFERRING FACILITY [facility] REFERRAL DATE AND TIME 09/19/2021 14:01 (CDT) ACUTE ADMIT DATE 09/13/2021 Previous Rehabilitation(s): No. ACUTE FLIGHT INSPECTOR/DC DIRECTOR Jarrod Ureña ATTENDING PHYSICIAN Ronal Sebastian REFERRING PHYSICIAN Ronal Sebastian REHAB FACILITY [facility] CLINICAL LIAISON Staci He PHYSICIAN REVIEWER Dr. Porfirio Bee M.D. MR# [id number] NAME PETE OLVERA ADDRESS [address] [facility] [address] [place] [address] [facility] [id number] DATE OF 1930 AGE 89 SSN# [id number] GENDER female MARITAL STATUS RACE unknown race ADMIT FROM 61 - Swing bed PRE-HOSPITAL LIVING SETTING 01 - Home (private home/apt. board/care, assisted living, shelter, transitional living) HOME TYPE AND DETAILS Type of home: single family house # of levels in the residence: 1 # of steps within the residence: 0 # of steps to enter the residence: 1 PRE-HOSPITAL LIVING WITH Alone FAMILY SUPPORT Yes PRIMARY FAMILY CONTACT NAME Alessandro Olvera PRIMARY FAMILY CONTACT PHONE PRIMARY FAMILY CONTACT RELATIONSHIP Son PHONE PRIMARY FAMILY CONTACT ON ADM.? no IS PRIMARY FAMILY CONTACT AUTH. REP.? no 1ST EMERGENCY CONTACT Alessandro Olvera 1ST CONTACT PHONE 1ST CONTACT RELATIONSHIP Son PHONE 1ST CONTACT ON ADM. no IS 1ST CONTACT AUTH. REP.? no PHONE 2ND CONTACT ON ADM.? no PATIENT EMPLOYMENT STATUS Retired (for age) PATIENT EMPLOYER No Employer PAYOR INFORMATION: 1ST PAYOR NAME Medicare [employer] 1ST PAYOR INJURY/ILLNESS DUE TO ACCIDENT? No ANOTHER GREEN PARTY RESPONSIBLE? No PRIMARY REHAB/ACUTE DIAGNOSIS: S32.10XA Unspecified fracture of sacrum, initial encounter for closed fracture ONSET DATE 09/07/2021 REHAB IMPAIRMENT CATEGORY (CHAU): 07 Fracture of LE (FracLE) MEETS 60% rule PRIMARY DIAGNOSIS-RELATED SURGERIES: None INTERVENTIONS: - Pain Monitor and treat with prescribed pain medications Non pharmacological pain management - Hypertension Implement healthy diet Monitor patient B/P and treat with prescribed medications Provide comfort measures Promote regular physical activity - Afib Administer prescribed anticoagulants and monitor effectiveness Monitor pt cardiac and respiratory status regularly - Dementia Close observation of pt Frequently orient client to reality and surroundings Administer prescribed medications - Deconditioning RISK FOR COMPLICATIONS: - DVT Active and Passive ROM exercises Assist patient with frequent position changes Elevate BLE - Pain Anticipate the need for pain medication for optimal pain managment Assist patient with frequent position changes at least every 2 hours Educate patient on relaxation and deep breathing techniques Administer prescribed pain medication as needed - Skin Breakdown Encourage ambulation as tolerated Repositioning q 2 hours Use of pillows or foam wedges while in bed - Falls Assess for medication side effects Maintain call light within patient reach for easy access to nursing assistance Provide assistance getting out of bed and with ambulation Provide assistive devices - Stroke Monitor and maintain patient pain level Monitor patient blood pressure - Bleeding Monitor pt for injury Maintain pt safety - Seizure Identify risk factors Provide safety measures - Respiratory Failure Administer supplemental O2 as needed Monitor pt O2 sats SUMMARY OF ACUTE HOSPITALIZATION: Pt. is a 89 yo female of unknown race. On 09/07/2021 she was admitted to [facility] with diagnosis S32.10XA Unspecified fracture of sa nenita, initial encounter for closed fracture. Her impairment category is Orthopaedic Disorders 08 - Pelvic Fracture (08.3). Pre-morbidly, Pt. was independent/mod-I in Locomotion and Self-Care; and she had good Balance, Transf ers Control, Endurance, and Safety Awareness. Currently, she has deficits of Locomotion, Safety Awareness, Balance, Transfers Control, and Enduranc e. Pt. is now referred to [facility] for acute in-patient rehabilitation in order to maximize patient's functional independence in activities of daily living, strength, ROM, and mobi lity. Patient has realistic goal of being discharged at assistance level 6-Zeynep to reside at Home with Pt self. PAST MEDICAL HISTORY Afib HTN Dementia Insufficiency Fracture Falls Poor balance Poor conditioning GERD Osteoporosis MEDICATION ALLERGIES: No Known Drug Allergies (NKDA) ENVIRONMENTAL ALLERGIES: - Substance Allergies None Known - Other Allergies None Known CODE STATUS: Full code WEIGHT/HEIGHT/BMI: WEIGHT 166 lbs HEIGHT 5' 4" BMI 28.5 DIET: - Diet Type Cardiac - Diet - Solid Texture Regular - Diet - Liquid Texture Thin - Tube Feed N/A SKIN DIAGRAM: Aching Abdomen pain; level - 5. REVIEW OF SYSTEMS: - Gen Alert and awake Lying in bed No apparent distress Oriented to: person, time, and place - Vital Signs Temperature: 97.5 F SBP/DBP: 105/36 Pulse: 59 Resp: 6 Vital signs stable, afebrile - CVS RRR VITAL SIGNS Temperature: 97.5 F SBP/DBP: 105/36 Pulse: 59 Resp: 16 Vital signs stable, afebrile 09/23/2021 MEDICATIONS/TREATMENT: Other- See attached MAR (Medication Administration Record). CURRENT SPHINCTER CONTROL: Pre-hospital bladder status: unspecified # of bladder accidents in the last 7 days prior to screenin Pre-hospital bowel status: unspecified # of bowel accidents in the last 7 days prior to screenin Last Bowel Movement Date: 09/19/2021 CURRENT LOCOMOTION STATUS: distance walked 300 feet DETAILED CURRENT FUNCTIONAL STATUS: - Bladder accident frequency: 7-Ind - No accidents in the past 7 days - Bowel accident frequency: 7-Ind - No accidents in the past 7 days - Walking score based on distance walked: 0(N/A) score based on distance walked: 3(>=150ft) - Wheelchair score based on distance traveled: 0(N/A) QI SCORES: - Self-Care A. Eating 06-Independent B. Oral hygiene 06-Independent C. Toileting hygiene 03-Partial/moderate assistance E. Shower/bathe self 03-Partial/moderate assistance F. Upper body dressing 04-Supervision or touching assistance G. Lower body dressing 03-Partial/moderate assistance H. Putting on/taking off footwear 03-Partial/moderate assistance - Mobility A. Roll left and right 03-Partial/moderate assistance B. Sit to lying 04-Supervision or touching assistance C. Lying to sitting on side of bed 03-Partial/moderate assistance D. Sit to stand 03-Partial/moderate assistance E. Chair/twi-dy-qowsb transfer 03-Partial/moderate assistance F. Toilet transfer 03-Partial/moderate assistance G. Car transfer 03-Partial/moderate assistance I. Walk 10 feet 04-Supervision or touching assistance J. Walk 50 feet with two turns 04-Supervision or touching assistance K. Walk 150 feet 04-Supervision or touching assistance L. Walking 10 feet on uneven surfaces 88-Not attempted due to medical condition or safety concerns M. 1 step (curb) 88-Not attempted due to medical condition or safety concerns N. 4 steps 88-Not attempted due to medical condition or safety concerns O. 12 steps 88-Not attempted due to medical condition or safety concerns P. Picking up object 88-Not attempted due to medical condition or safety concerns R. Wheel 50 feet with two turns 09-Not applicable S. Wheel 150 feet 09-Not applicable - Bladder and Bowel Bladder continence 3-Incontinent daily Bowel continence 1-Occasionally incontinent - Endurance Fair - Balance Fair - Safety Awareness Fair CURRENT FUNC. DEFICITS: Mobility, Endurance, Balance, Safety Awareness, and Self-Care CURRENT / PREVIOUS ASSISTIVE DEVICES: Rolling Walker HISTORY OF FALLS. HAS THE PATIENT HAD TWO OR MORE FALLS IN THE PAST YEAR OR ANY FALL WITH INJURY IN T HE PAST YEAR?: Yes PRIOR SURGERY. DID THE PATIENT HAVE MAJOR SURGERY DURING THE 100 DAYS PRIOR TO ADMISSION?: No THERAPY NOTES FROM ACUTE CARE: Attached. SPECIAL NEEDS: - Safety Concerns Skin breakdown and Fall precautions needed due to skin breakdown risk, Poor balance, Risk of injury, High fall risk, and Fall history - Communication Memory lost - Fall Precautions Due to poor balance PRECAUTIONS: - Fall Precaution Bed alarm TABS alarm Wheel chair alarm - Incontinence Bowel Incontinence Bladder Incontinence - Bleeding Risk Eliquis - Cardiac Precaution Monitor blood pressure, heart rate, lower extremity edema, notify MD for shortness of breath or chest pain Monitor patient for excessive elevation of heart rate and blood pressure during therapy Nursing and Therapy to monitor pt before and after therapy sessions for signs of Chest pain - DVT Risk due to restricted mobility and age - Skin Breakdown Risk due to restricted mobility and age PATIENT NEEDS ACTIVE AND ONGOING THERAPEUTIC INTERVENTION OF MULTIPLE THERAPY DISCIPLINES, INCLUDING: - Dietary and Nutrition Adequate Nutrition. Nutritional Education. Nutritional Supplements. - Occupational Therapy Cognitive Retraining. Patient needs Occupational Therapy for a daily minimum of 1.5 hours at least 5 out of 7 days, to improve Activities of Daily Living, including: Eating, Grooming, Bathing, Dressing, Toileting, Toilet Transfers, Community Reintegration, Higher functional activities, Adaptive Equipme nt, Splinting, Household Tasks, and Other activities as determined. Visual Perceptual Training. - Speech Therapy Cognitive Training. Expressive Language Skills. Memory Strategies. Patient needs Speech Therapy for a daily minimum of 1.5 hours at least 5 out of 7 days, to improve: Swallowing, Cognition, Language Ski lls, and Compensatory Strategies. Receptive Language Skills. Speech Intelligibility Training. - Physical Therapy Patient needs Physical Therapy for a daily minimum of 1.5 hours at least 5 out of 7 days, to improve: Mobility, Strengthening, Transfers, Stretching, ROM, Endurance, Ability to manage stairs, Gait, and Balance. PATIENT NEEDS CLOSE MEDICAL SUPERVISION BY A REHABILITATION PHYSICIAN FOR: Coordination of Treatment Team Bowel and Bladder Management Medical and Co-Morbidity Management Pain Management Respiratory/Airway Management PATIENT REQUIRES 24X7 REHAB NURSING FOR MEDICAL AND FUNCTIONAL MGT. OF THE FOLLOWING DEFICITS: Patient requires 24x7 Rehabilitation Nursing for: Pain Issues, Identifying and preventing risk factor s, Monitoring and reporting current medical conditions, Assisting with ambulation and transfer, Emmie ting with all ADL-s, Teaching patients about disease process and medications, Family teaching, Provid ing safe environment, Bowel and Bladder Issues, Skin Integrity, and Medication Management PATIENT REQUIRES INTENSIVE, COORDINATED INTERDISCIPLINARY APPROACH TO REHAB: Patient needs Dietary and Nutrition Services for: Adequate Nutrition, Nutritional Supplements, and Nu tritional Education Patient needs Core Winder Machine Operator and/or Case Management for: Discharge Planning, Arranging Home Equipmen t or Services, and Family Interventions PATIENT REHAB POTENTIAL: Dyllan OLVERA is able and expected to receive 3 hours of individualized therapy daily on at least 5 of every 7 days Dyllan Lowry prognosis for significant practical improvement within a reasonable period of time appears Good Expected level of measurable improvement will be of a practical value to Dyllan Lowry functional capacity or adaptations to impairments Has a viable Discharge Plan Medically appropriate; condition is sufficiently stable to participate in intensive rehab program DISCHARGE PLAN: - Estimated Length of Stay (days) 14. - Consensus on plan Discharge plan has been discussed with primary caregiver. Patient/Family is in agreement with the nathan n. Primary caregiver is in agreement with the plan. - Patient/Family Goals Return home independently. - Planned Living Setting Upon Discharge Home, to live alone. Transitional Living. Primary caregiver: Pt self. RECOMMENDED CARE LEVEL: IRF RECOMMENDATION DETAILS: Recommended Admission to Comprehensive Rehabilitation Program to Increase Functional [place] SCREENER'S COMPLETENESS CONFIRMATION: - Screening Confirmation The patient data collection on this preadmission screening form is finished PHYSICIANS REVIEW AND ADMISSION DETERMINATION Admit - Based on my review of the Pre-Admission Screening results, in my medical judgment and experie nce, I concur with the findings and recommend admission to [facility], as this patient requires an IRF level of care. SIGNATURE PANEL: Clinical Liaison - [electronically] signed by Staci He on 09/25/2021 at 09:38 (CDT) Physician Reviewer - [electronically] signed by Dr. Porfirio Bee M.D. on 09/25/2021 at 10:58 (CDT )
--- OUTSIDE RECORDS SUMMARY | 2021-09-25 16:55 | XMS REPORT | Continuity of Care Document ---
:1930 Author Organization [facility] t Address [address] [place] [address] Care Team Providers Name Role Phone Guadalupe Janette Primary Care Physician LIA HOUGH Attending Clinician Unavailable LIA HOUGH Attending Clinician Unavailable Doctor Unassigned, Name Attending Clinician Unavailable Lia Hough MD Attending Clinician EDEL STEIN Attending Clinician Unavailable Payers Payer Name Policy Type Policy Number Effective Date Expiration Date S [facility] [id number] 2020 [facility] [place] 00:00:00 O UNITED MEDICARE [id number] 2020 HMO 00:00:00 [employer] PPO [place] [id number] 2018 2020 ASO 00:00:00 00:00:00 Problems Condition Condition Condition Status Onset Resolution Last Treating Co mments Source Name Details Category Date Date Treatment Clinician Date No known No known Disease Unive rs active active ity of problems problems [facility] Allergies, Adverse Reactions, Alerts Allergy Allergy Status Severity Reaction(s) Onset Inactive Treating Comm ents Source Name Type Date Date Clinician BRIMONID Allergy Active [facility] CODEINE Allergy Active [facility] NO KNOWN Drug Active Univers ALLERGIE Class ity of S [facility] Social History Social Habit Start Date Stop Date Quantity Comments Source Exposure to Not sure [facility] SARS-CoV-2 (event) Medica l Branch Sex Assigned At [birth year] [facility] 00:00:00 00:00:00 Medical Branch Smoking Status Start Date Stop Date Source Unknown if ever smoked [facility] Medical Branch Medications Ordered Filled Start Stop Current Ordering Indication Dosage Frequency Signature Comments Components Source Medication Medication Date Date Medication? Clinician (SIG) Name Name memantine 5 Yes 5mg Take 5 mg U nivers mg tablet 9-17 by mouth. ity o f 10:28: [address] memantine 5 Yes 5mg Take 5 mg U nivers mg tablet 9-17 by mouth. ity o f 10:28: [address] memantine 5 Yes 5mg Take 5 mg U nivers mg tablet 9-17 by mouth. ity o f 10:28: [address] memantine 5 Yes 5mg Take 5 mg U nivers mg tablet 9-17 by mouth. ity o f 10:28: [address] MYRBETRIQ Yes 1{tbl} Take 1 Univ ers 50 mg 8-29 tablet by ity of tablet 00:00: mouth [place] 00 every Medical morning. Branch MYRBETRIQ Yes 1{tbl} Take 1 Univ ers 50 mg 8-29 tablet by ity of tablet 00:00: mouth [place] 00 every Medical morning. Branch MYRBETRIQ Yes 1{tbl} Take 1 Univ ers 50 mg 8-29 tablet by ity of tablet 00:00: mouth [place] 00 every Medical morning. Branch MYRBETRIQ Yes 1{tbl} Take 1 Univ ers 50 mg 8-29 tablet by ity of tablet 00:00: mouth [place] 00 every Medical morning. Branch DULoxetine Yes 20mg Take 20 mg U nivers 20 mg 8-19 by mouth ity of capsule 00:00: daily. [place] [facility] DULoxetine Yes 20mg Take 20 mg U nivers 20 mg 8-19 by mouth ity of capsule 00:00: daily. [place] [facility] DULoxetine Yes 20mg Take 20 mg U nivers 20 mg 8-19 by mouth ity of capsule 00:00: daily. [place] [facility] DULoxetine Yes 20mg Take 20 mg U nivers 20 mg 8-19 by mouth ity of capsule 00:00: daily. [place] [address] Medical Branch lisinopriL 2021-0 Yes 20mg Take 20 mg U nivers 20 mg 7-22 by mouth ity of tablet 00:00: at [place] [address] bedtime. Medical Branch lisinopriL 2021-0 Yes 20mg Take 20 mg U nivers 20 mg 7-22 by mouth ity of tablet 00:00: at [place] [address] bedtime. Medical Branch lisinopriL 2021-0 Yes 20mg Take 20 mg U nivers 20 mg 7-22 by mouth ity of tablet 00:00: at [place] [address] bedtime. Medical Branch lisinopriL 1-0 Yes 20mg Take 20 mg U nivers 20 mg 7-22 by mouth ity of tablet 00:00: at [place] [address] bedtime. Medical Branch famotidine 1-0 Yes 40mg Take 40 mg U nivers 40 mg 7-08 by mouth ity of tablet 00:00: at [place] [address] bedtime. Medical Branch famotidine 1-0 Yes 40mg Take 40 mg U nivers 40 mg 7-08 by mouth ity of tablet 00:00: at [place] [address] bedtime. Medical Branch famotidine 1-0 Yes 40mg Take 40 mg U nivers 40 mg 7-08 by mouth ity of tablet 00:00: at [place] [address] bedtime. Medical Branch famotidine 1-0 Yes 40mg Take 40 mg U nivers 40 mg 7-08 by mouth ity of tablet 00:00: at [place] [address] bedtime. Medical Branch donepeziL 1-0 Yes 10mg Take 10 mg Un neisha 10 mg 6-26 by mouth ity of tablet 00:00: at [place] [address] bedtime. Medical Branch donepeziL 2021-0 Yes 10mg Take 10 mg Un neisha 10 mg 6-26 by mouth ity of tablet 00:00: at [place] [address] bedtime. Medical Branch donepeziL 2021-0 Yes 10mg Take 10 mg Un neisha 10 mg 6-26 by mouth ity of tablet 00:00: at [place] [address] bedtime. Medical Branch donepeziL 2021-0 Yes 10mg Take 10 mg Un neisha 10 mg 6-26 by mouth ity of tablet 00:00: at [place] [address] bedtime. Medical Branch Vital Signs Vital Name Observation Time Observation Value Comments Source Systolic blood 2021-01-11 15:29:00 132 mm[Hg] Univer sity [facility] pressure [facility] Branch Diastolic blood 2021-01-11 15:29:00 71 mm[Hg] Unive rsity [facility] pressure [facility] Branch Heart rate 2021-01-11 15:29:00 58 /min [facility] Oxygen saturation 2021-01-11 15:29:00 96 /min Uni [facility] in Arterial blood Medical Br anch by Pulse oximetry HEIGHT 2020-10-01 11:03:00 167.6 cm WEIGHT 2020-10-01 11:03:00 78.019 kg Procedures Procedure Date / Time Performing Clinician Source Performed EXTERNAL PROVIDER 2021-06-06 06:01:00 Doctor [facility] RECORDS Name [facility] Branch VACCINATIONS - 2021-03-23 06:01:00 Doctor Unassigned, No [facility] CONSENTS, ELIGIBILITY, Name Medical B ranch HISTORY Encounters Start End Encounter Admission Attending Care Care Encounter Source Date/Time Date/Time Type Type Clinicians Facility Department ID 2021-12-13 2021-12-13 Outpatient ARPAN LOPEZ [facility] [id number] Univers 10:40:00 10:40:00 [facility] [id number] [facility] 2021-12-13 2021-12-13 Outpatient ARPAN LOPEZ [facility] [id number] Univers 10:40:00 10:40:00 ARPAN HOUGH [facility] 2021-06-06 2021-06-06 Orders Doctor CHARMAINE [id number] Univers 00:00:00 00:00:00 Only Unassigned, EILEEN [id number] ity of [facility] [id number] Silver as [phone] [address] 2021-03-23 2021-03-23 Orders Doctor CHARMAINE [id number] Univers 00:00:00 00:00:00 Only Unassigned, EILEEN [id number] ity of [facility] [id number] Silver as [id number] [address] 2021-02-27 2021-02-27 Telephone [place] [facility] [id number] Univers 00:00:00 00:00:00 [facility] [id number] ity of [place] [id number] Silver as CHU?BLEA [id number] [address] MEDICAL OFFICE BUILDING 2021-01-16 2021-01-16 Outpatient SARITA, [facility] [id number] 00:00:00 00:00:00 [facility] 2021-01-11 2021-01-11 [facility] [id number] Univers 09:53:28 11:47:01 Visit [facility] [id number] ity of [place] 4.2.7.2.686 Silver as Chu?Blea [id number] [address] Medical Office [facility] 2021-01-11 2021-01-11 Outpatient R RFANCEARPAN Hubbard [facility] [id number] Univers 10:00:00 10:00:00 [facility] 2021-01-11 2021-01-11 Letter Doctor CHARMAINE [id number] Univers 00:00:00 00:00:00 (Out) Unassigned, EILEEN [id number] ity of [place] [facility] [id number] Silver as [phone] [facility] [address] [place] 2020-12-24 2020-12-24 Outpatient SARITA, [facility] [id number] 00:00:00 00:00:00 [facility] 2020-10-01 2020-10-01 Outpatient SARITA, [facility] [id number] 00:00:00 00:00:00 [facility] 2020-09-19 2020-09-19 Outpatient SARITA, [facility] [id number] 00:00:00 00:00:00 [facility] 2018-11-15 2018-11-15 Outpatient EL SARITA, [facility] [id number] 11:34:59 12:30:06 [facility] Results This patient has no known results.
[2021-09-25] MEDS ORDERED: MAGNESIUM HYDROXIDE 8% 30 ML PO PRN (18:39)
[2021-09-25] MEDS ORDERED: DOCUSATE NA/SENNA CONC 1 TAB PO PRN (18:43)
[2021-09-25] MEDS: AMLODIPINE 5 MG TAB PO SCH (19:59)
[2021-09-25] MEDS: lisinopriL 20 MG TAB PO SCH (19:59)
[2021-09-25] MEDS: FAMOTIDINE 20 MG TAB PO SCH (19:59)
[2021-09-25] MEDS: APIXABAN 2.5 MG TABLET PO SCH (19:59)
[2021-09-25] MEDS: DONEPEZIL HCL 5 MG TAB PO SCH (19:59)
[2021-09-25] MEDS: MEMANTINE HCL 10 MG TABLET PO SCH (19:59)
[2021-09-25] MEDS: HYDROCODONE/APAP 5/325 MG TAB PO PRN (22:27)
[2021-09-26 04:49] LABS: Absolute Lymphocytes (CBC) 1.7 K/uL (0.7-4.9); MPV 9.3 fL (7.6-11.3); RBC Red Blood Cell Count 3.79 M/uL (3.86-4.86)
[2021-09-26 05:08] LABS: Albumin 2.8 g/dL (3.4-5.0); Magnesium 2.1 mg/dL (1.8-2.4); Potassium 3.9 mmol/L (3.5-5.1); Prealbumin 17.7 mg/dL (20-40)
[2021-09-26 05:44] LABS: Urine Appearance Clear (Clear); Urine Bilirubin Negative (Negative); Urine Blood Trace-intact (Negative); Urine Color Yellow (Yellow); Urine Glucose Negative (Negative); Urine Protein Negative (Negative); Urine Urobilinogen 0.2 mg/dL (0.2-1.0); Urine pH 5.5 (5.0-7.0)
[2021-09-26 05:49] LABS: Urine Microscopic Reflex ORDER UMIC
[2021-09-26 05:55] VITALS: BMI 27.4
[2021-09-26 05:56] LABS: Urine Bacteria <20 /HPF (<20); Urine RBC <5 /HPF (NONE SEEN)
[2021-09-26] MEDS: APIXABAN 2.5 MG TABLET PO SCH ×2 (07:19→20:22)
[2021-09-26] MEDS: DULOXETINE 20 MG CAP PO SCH (07:19)
[2021-09-26] MEDS: MEMANTINE HCL 10 MG TABLET PO SCH ×2 (07:20→19:25)
[2021-09-26] MEDS: VITAMIN D 5,000 UNIT CAP PO SCH (07:20)
[2021-09-26] MEDS ORDERED: SPIRONOLACTONE 25 MG TABLET PO SCH (08:00)
[2021-09-26] MEDS: MIRABEGRON 50 MG PO SCH (11:57)
[2021-09-26] MEDS: MAGNESIUM OXIDE 400 MG TAB PO SCH ×2 (14:04→19:42)
--- NOTE | 2021-09-26 17:58 | R.HP ---
HISTORY AND PHYSICAL FACILITY: [facility] ENCOUNTER DATE AND TIME: 09/26/2021 12:46 (CDT) MR#: [id number] NAME PETE OLVERA ADDRESS: [address] [place] [address] [address] CITY: [place] [address]IP [id number] PHONE: DATE OF : 1930 AGE: 89 SSN# [id number] GENDER: Female DEXTERITY Unknown dexterity MARITAL STATUS RACE Unknown race PRE-HOSPITAL LIVING SETTING 01 - Home (private home/apt. board/care, assisted living, usp, transitional living) PRE-HOSPITAL LIVING WITH Alone ENCOUNTER PHYSICIAN: Dr. Porfirio Bee M.D. REFERRING DOCTOR: eugenia Sebastian DATE OF ADMISSION: 09/25/2021 16:45 (CDT) REFERRING FACILITY [facility] HOME TYPE AND DETAILS: Type of home: single family house # of levels in the residence: 1 # of steps within the residence: 0 # of steps to enter the residence: 1 ONSET DATE: 09/07/2021 PRIMARY DIAGNOSIS-RELATED SURGERIES: None HISTORY OF PRESENT ILLNESS (HPI): Pt. is a 89 yo female of unknown race. On 09/07/2021 she was admitted to [facility] with diagnosis S32.10XA Unspecified fracture of sa nenita, initial encounter for closed fracture. Her impairment category is Orthopaedic Disorders 08 - Pelvic Fracture (08.3). Pre-morbidly, Pt. was independent/mod-I in Locomotion and Self-Care; and she had good Balance, Transf ers Control, Endurance, and Safety Awareness. Currently, she has deficits of Locomotion, Safety Awareness, Balance, Transfers Control, and Enduranc e. Pt. is now referred to [facility] for acute in-patient rehabilitation in order to maximize patient's functional independence in activities of daily living, strength, ROM, and mobi lity. Patient has realistic goal of being discharged at assistance level 6-Zeynep to reside at Home with Pt self. MEDICATION ALLERGIES: No Known Drug Allergies (NKDA) ENVIRONMENTAL ALLERGIES: - Substance Allergies None Known - Other Allergies None Known PAST MEDICAL HISTORY: Afib HTN Dementia Insufficiency Fracture Falls Poor balance Poor conditioning GERD Osteoporosis SOCIAL HISTORY: - Home Living Alone REVIEW OF SYSTEMS: - Gen No Chills Fatigue No Fever - Eyes No Double Vision No itchiness - ENMT No Difficulty Swallowing - CVS No Chest Discomfort No Chest Pain Fatigue No Weight Gain - Resp No Cough No Shortness of Breath - GI Continent No Abdominal Pain No Constipation No Diarrhea - Continent No Kidney Pain No Painful Urination No Urinary Urgency - MSK No Joint Pain Muscle Cramps Stiffness - Skin No Itching No Rash No Suspicious Lesions - Neuro Coordination Difficulty No Difficulty with Concentration No Memory Loss No Seizures Weakness - Psych No Anxiety No Depression No HIV Exposure No Persistent Infections No Seasonal Allergies - Endo No Cold/Heat Intolerance No Excessive Hunger No Excessive Thirst No Excessive Urination PHYSICAL EXAM - Gen Alert and awake Lying in bed No apparent distress Oriented to: person, time, and place - Skin No skin breakdown. Normacephalic - Eyes No abnormalities - ENMT No abnormalities - Neck No abnormalities - CVS RRR - Chest No abnormalities - Resp No wheezing - Abd Soft - GI + bowel sounds Deferred - No abnormalities - Ext Mild bilateral lower extremity edema. - MSK 4+/5 weakness in both lower extremities. - Neuro No focal deficits VITAL SIGNS Temperature: 97.1 F SBP/DBP: 120/57 Pulse: 61 Resp: 15 NURSING: - Shower allowing shower - Skin care per protocol PRECAUTIONS: - Fall Precaution Bed alarm TABS alarm Wheel chair alarm - Incontinence Bowel Incontinence Bladder Incontinence - Bleeding Risk Eliquis - Cardiac Precaution Monitor blood pressure, heart rate, lower extremity edema, notify MD for shortness of breath or chest pain Monitor patient for excessive elevation of heart rate and blood pressure during therapy Nursing and Therapy to monitor pt before and after therapy sessions for signs of Chest pain - DVT Risk due to restricted mobility and age - Skin Breakdown Risk due to restricted mobility and age ACTIVITIES OOB only with supervision QI SCORES: - Self-Care A. Eating 06-Independent B. Oral hygiene 06-Independent C. Toileting hygiene 03-Partial/moderate assistance E. Shower/bathe self 03-Partial/moderate assistance F. Upper body dressing 04-Supervision or touching assistance G. Lower body dressing 03-Partial/moderate assistance H. Putting on/taking off footwear 03-Partial/moderate assistance - Mobility A. Roll left and right 03-Partial/moderate assistance B. Sit to lying 04-Supervision or touching assistance C. Lying to sitting on side of bed 03-Partial/moderate assistance D. Sit to stand 03-Partial/moderate assistance E. Chair/hka-wa-jcgac transfer 03-Partial/moderate assistance F. Toilet transfer 03-Partial/moderate assistance G. Car transfer 03-Partial/moderate assistance I. Walk 10 feet 04-Supervision or touching assistance J. Walk 50 feet with two turns 04-Supervision or touching assistance K. Walk 150 feet 04-Supervision or touching assistance L. Walking 10 feet on uneven surfaces 88-Not attempted due to medical condition or safety concerns M. 1 step (curb) 88-Not attempted due to medical condition or safety concerns N. 4 steps 88-Not attempted due to medical condition or safety concerns O. 12 steps 88-Not attempted due to medical condition or safety concerns P. Picking up object 88-Not attempted due to medical condition or safety concerns R. Wheel 50 feet with two turns 09-Not applicable S. Wheel 150 feet 09-Not applicable - Bladder and Bowel Bladder continence 3-Incontinent daily Bowel continence 1-Occasionally incontinent - Endurance Fair - Balance Fair - Safety Awareness Fair CURRENT FUNC. DEFICITS: Mobility, Endurance, Balance, Safety Awareness, and Self-Care MEDICATIONS: - Other See attached MAR (Medication Administration Record) ASSESSMENT: Pt. is a 89 yo female of unknown race.On 09/07/2021 she was admitted to [facility] with diagnos is S32.10XA Unspecified fracture of sacrum, initial encounter for closed fracture.Her impairment moiz aguiar is Orthopaedic Disorders 08 - Pelvic Fracture (08.3).Pre-morbidly, Pt. was independent/mod-I in Locomotion and Self-Care; and she had good Balance, Transfers Control, Endurance, and Safety Awarene ss.Currently, she has deficits of Locomotion, Safety Awareness, Balance, Transfers Control, and Endur ance.Pt. is now referred to [facility] for acute in-patient rehabilitation in order to maximize patient's functional independence in activities of daily living, strength, ROM, and mobility.- Rehab Goal Patient has realistic goal of being discharged at assistance level 6-Zeynep to reside at Home with Pt self. - Physical Therapy Decreased range of motion - to improve, our physical therapists will perform initial evaluation of pt 's status upon admission and devise an individualized program for increasing patient's Range of Motio n. Gait dysfunction - to improve, our physical therapists will perform initial evaluation of pt's status upon admission and devise an individualized program for Gait Training, and Wheel Chair mobility Inability to transfer - to improve, our physical therapists will perform initial evaluation of pt's s tatus upon admission and devise an individualized program for Bed mobility Need for home safety evaluation - to improve, our physical therapists will perform initial evaluation of pt's status upon admission and devise an individualized program for Home Evaluation Need in caregiver upon discharge - to improve, our physical therapists will perform initial evaluatio n of pt's status upon admission and devise an individualized program for Caregiver Training New precaution - to improve, our physical therapists will perform initial evaluation of pt's status u michaela admission and devise an individualized program for Patient precaution education Edema - to improve, our physical therapists will perform initial evaluation of pt's status upon admi ssion and devise an individualized program for Elevation Training, and Lymphedema Therapy Poor balance - to improve, our physical therapists will perform initial evaluation of pt's status upo n admission and devise an individualized program for Balance Training Poor endurance - to improve, our physical therapists will perform initial evaluation of pt's status u michaela admission and devise an individualized program for Endurance Training Weakness - to improve, our physical therapists will perform initial evaluation of pt's status upon ad mission and devise an individualized program for Aquatic Therapy, Neuromuscular Reeducation, and Stre ngthening Achieving independence - to improve, our physical therapists will perform initial evaluation of pt's status upon admission and devise an individualized program for Community Reintegration Activities - Occupational Therapy ADL deficits - to improve, our occupation therapists will perform initial evaluation of pt's status u michaela admission and devise an individualized program for Bathing, Bed mobility, Community Reintegration , Cooking, Dressing, Eating, Fine Motor Skills, Grooming, Homemaking, Kitchen Mobility, Laundry, Madhuri ent Education, Safety Awareness, Splinting - Positioning, Transfers(Toilet, Tub, Shower), and Wheel C hair Management Need for animal caregiver - to improve, our occupation therapists will perform initial evaluation of pt's s tatus upon admission and devise an individualized program for Caregiver Training Weakness - to improve, our occupation therapists will perform initial evaluation of pt's status upon admission and devise an individualized program for Aquatic Therapy, Balance, Endurance, UE ROM, and U E strengthening MEDICAL PLAN: - Diet Type Start Cardiac - Diet - Liquid Texture Start Thin - Tube Feed Start N/A - Incontinence Bowel Incontinence Bladder Incontinence - Bleeding Risk Eliquis - DVT Risk due to restricted mobility and age - Skin Breakdown Risk due to restricted mobility and age - Cardiac Precaution Monitor blood pressure, heart rate, lower extremity edema, notify MD for shortness of breath or ches t pain Monitor patient for excessive elevation of heart rate and blood pressure during therapy Nursing and Therapy to monitor pt before and after therapy sessions for signs of Chest pain - Fall Precaution Bed alarm TABS alarm Wheel chair alarm - Skin care per protocol - Other See attached MAR (Medication Administration Record) - Diet - Solid Texture Regular - Shower shower DISCHARGE PLAN: - Estimated Length of Stay (days) 14. - Consensus on plan Discharge plan has been discussed with primary caregiver. Patient/Family is in agreement with the nathan n. Primary caregiver is in agreement with the plan. - Patient/Family Goals Return home independently. - Planned Living Setting Upon Discharge Home, to live alone. Transitional Living. Primary caregiver: Pt self. SIGNATURE PANEL: (CDT)
--- NOTE | 2021-09-26 18:01 | PAPE ---
POST ADMISSION PHYSICIAN EVALUATION PATIENT: [facility] MR# [id number] REFERRING DOCTOR eugenia Sebastian EVALUATION DATE AND TIME 09/26/2021 17:57 (CDT) NAME PETE OLVERA DATE OF 1930 AGE 89 PHONE SSN# [id number] GENDER female EVALUATING PHYSICIAN Dr. Porfirio Bee M.D. ADMISSION DIAGNOSIS: S32.10XA Unspecified fracture of sacrum, initial encounter for closed fracture ONSET DATE 09/07/2021 POST-ADMISSION FUNCTIONAL/MEDICAL STATUS: - Bladder Same accident frequency: 7-Ind - No accidents in the past 7 days - Bowel Same accident frequency: 7-Ind - No accidents in the past 7 days - Walking Same score based on distance walked: 0(N/A) Same score based on distance walked: 3(>=150ft) - Wheelchair Same score based on distance traveled: 0(N/A) STATUS CHANGE EVALUATION: No change in Functional or Medical Status is identified compared with Pre-Admission screening. PATIENT NEEDS CLOSE MEDICAL SUPERVISION BY A REHABILITATION PHYSICIAN FOR: Coordination of Treatment Team Bowel and Bladder Management Medical and Co-Morbidity Management Pain Management Respiratory/Airway Management PATIENT REQUIRES 24X7 REHAB NURSING FOR MEDICAL AND FUNCTIONAL MGT. OF THE FOLLOWING DEFICITS: Patient requires 24x7 Rehabilitation Nursing for: Pain Issues, Identifying and preventing risk factor s, Monitoring and reporting current medical conditions, Assisting with ambulation and transfer, Emmie ting with all ADL-s, Teaching patients about disease process and medications, Family teaching, Provid ing safe environment, Bowel and Bladder Issues, Skin Integrity, and Medication Management PATIENT REQUIRES INTENSIVE, COORDINATED INTERDISCIPLINARY APPROACH TO REHAB: Patient needs Dietary and Nutrition Services for: Adequate Nutrition, Nutritional Supplements, and Nu tritional Education Patient needs Heel Packer and/or Case Management for: Discharge Planning, Arranging Home Equipmen t or Services, and Family Interventions LIST OF IDENTIFIED AND POTENTIAL PROBLEMS: Alteration in leisure activities Bladder, Incontinence Bowel, Incontinence Falls, Actual or Potential Ineffective Communication Infection, Actual or Potential Mobility Impaired Pain, Alteration in Comfort Self Care Deficit Skin Integrity, Actual or Potential Urinary Tract Infection (UTI), Actual or Potential RISK FOR COMPLICATIONS - DVT Active and Passive ROM exercises. Assist patient with frequent position changes. Elevate BLE. - Pain Anticipate the need for pain medication for optimal pain managment. Assist patient with frequent posi tion changes at least every 2 hours. Educate patient on relaxation and deep breathing techniques. Adm inister prescribed pain medication as needed. - Skin Breakdown Encourage ambulation as tolerated. Repositioning q 2 hours. Use of pillows or foam wedges while in be d. - Falls Assess for medication side effects. Maintain call light within patient reach for easy access to nursi ng assistance. Provide assistance getting out of bed and with ambulation. Provide assistive devices. - Stroke Monitor and maintain patient pain level. Monitor patient blood pressure. - Bleeding Monitor pt for injury. Maintain pt safety. - Seizure Identify risk factors. Provide safety measures. - Respiratory Failure Administer supplemental O2 as needed. Monitor pt O2 sats. INTERVENTIONS - Pain Monitor and treat with prescribed pain medications. Non pharmacological pain management. - Hypertension Implement healthy diet. Monitor patient B/P and treat with prescribed medications. Provide comfort me asures. Promote regular physical activity. - Afib Administer prescribed anticoagulants and monitor effectiveness. Monitor pt cardiac and respiratory st atus regularly. - Dementia Close observation of pt. Frequently orient client to reality and surroundings. Administer prescribed medications. - Deconditioning PATIENT COULD BE AT RISK FOR COMPLICATIONS FROM ADVERSE MEDICAL CONDITIONS DUE TO HIS/HER COMORBIDITI ES AND THE RIGORS OF THE INTENSIVE REHABILLITATION PROGRAM. METHODS OR INTERVENTIONS TO AVOID COMPLIC ATIONS INCLUDE: - Infection Clinical staff to assess and manage the signs and symptoms of infection including fever, redness, war mth, etc. - Urinary Tract Infection - Falls Patient will be evaluated for Fall Precautions and will be placed on Fall Precautions as indicated pe r protocol. - Skin Breakdown Nursing will assess skin daily using assessment tool and will place on Skin Breakdown Precautions as indicated per protocol. - Pain Clinical staff may employ non-medication methods such as massage, distraction, decrease stimulus, etc . as needed. Clinical staff will assess patient's pain level every shift per protocol to assess and e nsure pain management effectiveness. Medications will be given and the pain level re-assessed. PRELIMINARY PLAN OF CARE: - Physical Therapy Patient needs Physical Therapy for a daily minimum of 1.5 hours at least 5 out of 7 days, to improve: Mobility, Strengthening, Transfers, Stretching, ROM, Endurance, Ability to manage stairs, Gait, and Balance. - Speech Therapy Patient needs Speech Therapy for a daily minimum of 0.5 hours at least 5 out of 7 days, to improve: S wallowing, Cognition, Language Skills, and Compensatory Strategies. - Rehabilitation Nursing Patient requires 24x7 Rehabilitation Nursing for: Pain Issues, Identifying and preventing risk factor s, Monitoring and reporting current medical conditions, Assisting with ambulation and transfer, Emmie ting with all ADL-s, Teaching patients about disease process and medications, Family teaching, Provid ing safe environment, Bowel and Bladder Issues, Skin Integrity, and Medication Management. Patient needs Heel Packer and/or Case Management for: Discharge Planning, Arranging Home Equipmen t or Services, and Family Interventions. - Dietary and Nutrition Services Patient needs Dietary and Nutrition Services for: Adequate Nutrition, Nutritional Supplements, and Nu tritional Education. - Occupational Therapy Patient needs Occupational Therapy for a daily minimum of 1.5 hours at least 5 out of 7 days, to impr ove Activities of Daily Living, including: Eating, Grooming, Bathing, Dressing, Toileting, Toilet Tra nsfers, Community Reintegration, Higher functional activities, Adaptive Equipment, Splinting, Househo ld Tasks, and Other activities as determined. QI SCORES: - Self-Care A. Eating 06-Independent B. Oral hygiene 06-Independent C. Toileting hygiene 03-Partial/moderate assistance E. Shower/bathe self 03-Partial/moderate assistance F. Upper body dressing 04-Supervision or touching assistance G. Lower body dressing 03-Partial/moderate assistance H. Putting on/taking off footwear 03-Partial/moderate assistance - Mobility A. Roll left and right 03-Partial/moderate assistance B. Sit to lying 04-Supervision or touching assistance C. Lying to sitting on side of bed 03-Partial/moderate assistance D. Sit to stand 03-Partial/moderate assistance E. Chair/mkk-bo-xnsco transfer 03-Partial/moderate assistance F. Toilet transfer 03-Partial/moderate assistance G. Car transfer 03-Partial/moderate assistance I. Walk 10 feet 04-Supervision or touching assistance J. Walk 50 feet with two turns 04-Supervision or touching assistance K. Walk 150 feet 04-Supervision or touching assistance L. Walking 10 feet on uneven surfaces 88-Not attempted due to medical condition or safety concerns M. 1 step (curb) 88-Not attempted due to medical condition or safety concerns N. 4 steps 88-Not attempted due to medical condition or safety concerns O. 12 steps 88-Not attempted due to medical condition or safety concerns P. Picking up object 88-Not attempted due to medical condition or safety concerns R. Wheel 50 feet with two turns 09-Not applicable S. Wheel 150 feet 09-Not applicable - Bladder and Bowel Bladder continence 3-Incontinent daily Bowel continence 1-Occasionally incontinent - Endurance Fair - Balance Fair - Safety Awareness Fair POTENTIAL FUNCTIONAL GOALS FOR PATIENT TO ACHIEVE BY DISCHARGE: - Safety Precaution Patient will remain free from falls or injury at time of discharge. - Bed Mobility Patient will perform bed mobility at 4-Leandra level of assistance. - Transfers Patient will complete transfers from bed to chair at 4-Leandra level of assistance. - Mobility Patient will ambulate 150 ft with 4-Leandra level of assistance with RW. PATIENT REHAB POTENTIAL Dyllan OLVERA is able and expected to receive 3 hours of individualized therapy daily on at least 5 of every 7 days Dyllan Lowry prognosis for significant practical improvement within a reasonable period of time appears Good Expected level of measurable improvement will be of a practical value to Dyllan Lowry functional capacity or adaptations to impairments Has a viable Discharge Plan Medically appropriate; condition is sufficiently stable to participate in intensive rehab program DISCHARGE PLAN: - Estimated Length of Stay (days) 14. - Consensus on plan Discharge plan has been discussed with primary caregiver. Patient/Family is in agreement with the nathan n. Primary caregiver is in agreement with the plan. - Patient/Family Goals Return home independently. - Planned Living Setting Upon Discharge Home, to live alone. Transitional Living. Primary caregiver: Pt self. CONCLUSION ON REHABILITATION NECESSITY: I have evaluated patient's pre-admission functional status and, comparing it to the patient's post-ad mission functional status now, I conclude that the pre-admission assessment was accurate. Patient's c ondition on admission supports the medical necessity of admission to [facility]. It is safe to proceed with patient's therapy program. SIGNATURE PANEL: (CDT)
[2021-09-26] MEDS: DONEPEZIL HCL 5 MG TAB PO SCH (19:24)
[2021-09-26] MEDS: GABAPENTIN 100 MG CAP PO SCH (19:25)
[2021-09-26] MEDS: AMLODIPINE 5 MG TAB PO SCH (19:41)
[2021-09-26] MEDS: DOCUSATE NA/SENNA CONC 1 TAB PO SCH (19:42)
[2021-09-26] MEDS: FAMOTIDINE 20 MG TAB PO SCH (19:42)
[2021-09-26] MEDS: lisinopriL 20 MG TAB PO SCH (19:42)
[2021-09-26] MEDS: HYDROCODONE/APAP 5/325 MG TAB PO PRN (20:01)
[2021-09-27] MEDS: LIDOCAINE 4% PATCH TOP SCH (06:24)
[2021-09-27] MEDS: MIRABEGRON 50 MG PO SCH (07:44)
[2021-09-27] MEDS: APIXABAN 2.5 MG TABLET PO SCH ×2 (07:45→21:25)
[2021-09-27] MEDS: MEMANTINE HCL 10 MG TABLET PO SCH ×2 (07:45→21:25)
[2021-09-27] MEDS: DULOXETINE 20 MG CAP PO SCH (07:45)
[2021-09-27] MEDS: VITAMIN D 5,000 UNIT CAP PO SCH (07:46)
[2021-09-27] MEDS: MAGNESIUM OXIDE 400 MG TAB PO SCH ×2 (07:46→21:25)
[2021-09-27] MEDS ORDERED: LIDOCAINE 4% PATCH TOP SCH (08:00)
--- NOTE | 2021-09-27 08:50 | HP ---
Date of Admission: 09/25/2021 Chief Complaint: Pain and weakness. History Of Present Illness: This is an 89-year-old female patient, who was admitted to the hospital on 09/10/2021 with back pain. The patient was evaluated in the ER and admitted to the hospital with insufficiency fracture of sacrum. She was discharged on 09/13/2021 and during her last hospital admi aida, her insurance company refused for her to come to inpatient rehab for therapy and as a result, she was discharged to go to [facility]. Yesterday, she was brought to our inpatient r ehab for more rehab therapy. I have seen her this morning she was lying in bed. No complaints repor liseth by her. No abdominal pain, nausea, vomiting. No chest pain. No shortness of breath. She has s ome back pain, but overall it is better than before. Review of Systems: Musculoskeletal: As mentioned above. ICING MIXER: Impaired memory. All other systems reviewed and negative. Allergies: NO KNOWN ALLERGIES. Medications: List reviewed. Past Medical History: Significant for hypertension, hyperlipidemia, gastroesophageal reflux disease, diverticulosis, dementia, osteoporosis, osteoarthritis at multiple sites, lumbar radiculopathy. Past Surgical History: Bladder suspension, hysterectomy, lower back surgery. Family History: Mother had cancer of esophagus. Social History: Negative for smoking, alcohol use. Immunization History: Her COVID-19 vaccine first dose was May 17, 2020, and second dose was 2020. Physical Examination: Vital Signs: This morning, temperature 97.1, pulse 61, respiratory rate 18, blood pressure 120/57, o xygen saturation 98%, height 5 feet 4 inches, weight 159 pounds. General: Awake, alert, oriented, not in distress. HEENT: Head atraumatic, normocephalic. Conjunctivae nonerythematous. Sclerae white. Mouth, no thr ush or edema noted. Ears/Nose, no mass, lesion, discharge noted. Neck: Supple. No JVD, lymph nodes, bruit, thyromegaly noted. Lungs: Bilateral good equal air entry. Clear to auscultation. No rhonchi. No rales. Heart: Normal heart sounds, no murmur or gallop. Abdomen: Soft, bowel sounds normal. No guarding, rigidity, tenderness, mass, hepatosplenomegaly, dis tention, or bruit noted. Extremities: No leg edema. No calf tenderness. Skin: No rash, ulcer, cellulitis. Lymphatics: No lymph node enlargement in neck, supraclavicular, infraclavicular region. Neuro: No focal neurological deficit. Chest: Unremarkable. External Genitalia: Deferred. Rectal: Deferred. Laboratory Data: White count this morning 6.1, hemoglobin 11.5, platelets 231. Sodium 142, potassiu m 3.9, chloride 115, bicarb 22, BUN 27, creatinine 0.90, glucose 87, albumin 2.8. Urinalysis was neg ative for leukocyte esterase, wbc less than 5, bacteria less than 20. COVID-19 test negative. Impression: 1.Insufficiency fracture of sacrum. 2.Anemia, unspecified. 3.Senile dementia. 4.Osteoporosis. 5.Osteoarthritis, multiple sites. 6.Lumbar spondylosis. 7.Hypertension. 8.Hyperlipidemia. 9.Overactive bladder. 10.Gastroesophageal reflux disease. 11.Diverticulosis. Plan: Admit the patient to hospital for further evaluation and management of this problem. The neena ent to be admitted to rehab floor and we will consult Dr. Bee from [facility] to manage the physical therapy. Her home medication list reviewed. Current medications reviewed. We will continu e her medications per order. DVT prophylaxis will be given using Eliquis 2.5 mg 2 times a day. We w ill continue that and we will go ahead and follow her tomorrow morning. Continue stool softener per order. Continue her antihypertensive medication and medication for her overactive bladder, which is Myrbetriq. Pain medications will be given as per order also. Details and plan of treatment discusse d with her. The patient has out of hospital DNR and this form was signed in 2017, as I have reviewed , currently available in her chart and I did ask the patient's nurse today to confirm this with the p atient's medical power of district attorney regarding advance directive and subsequently she did call and info rmed me that she has communicated with the patient's son who has medical power of district attorney and family would like for us to have do not resuscitate in place while she is in the hospital. JOSE/MODL Voice ID: [id number]
--- NOTE | 2021-09-27 09:33 | P.RH.PN ---
Estimated Length of Stay: 10 Expected Discharge Date: 10/05/21 Discharge Disposition Plan: Home Family Support: Yes Penitentiary Goal: Mobility, Transfers, Self Care Vital Signs: Last Vital Signs Temp 98 F 09/27/21 07:50 Pulse 60 09/27/21 07:50 Resp 17 09/27/21 07:50 BP 151/97 H 09/27/21 07:50 Pulse Ox 96 09/27/21 07:50 Laboratory: Laboratory Last Values WBC 6.1 K/uL (4.3-10.9) 09/26/21 04:02 RBC 3.79 M/uL (3.86-4.86) L 09/26/21 04:02 Hgb 11.5 g/dL (12.0-15.0) L 09/26/21 04:02 Hct 34.0 % (36.0-45.0) L 09/26/21 04:02 MCV 89.8 fL (80-100) 09/26/21 04:02 MCH 30.3 pg (27.0-35.0) 09/26/21 04:02 MCHC 33.8 g/dL (32.0-36.0) 09/26/21 04:02 RDW 13.4 % (12.1-15.2) 09/26/21 04:02 Plt Count 235 K/uL (152-406) 09/26/21 04:02 MPV 9.3 fL (7.6-11.3) 09/26/21 04:02 Neutrophils % 59.0 % (41.7-73.7) 09/26/21 04:02 Lymphocytes % 28.0 % (15.3-44.8) 09/26/21 04:02 Monocytes % 9.0 % (3.3-12.3) 09/26/21 04:02 Eosinophils % 3.0 % (0-4.4) 09/26/21 04:02 Basophils % 1.0 % (0-1.3) 09/26/21 04:02 Absolute Neutrophils 3.6 K/uL (1.8-8.0) 09/26/21 04:02 Absolute Lymphocytes 1.7 K/uL (0.7-4.9) 09/26/21 04:02 Absolute Monocytes 0.6 K/uL (0.1-1.3) 09/26/21 04:02 Absolute Eosinophils 0.2 K/uL (0-0.5) 09/26/21 04:02 Absolute Basophils 0.1 K/uL (0-0.5) 09/26/21 04:02 Sodium 142 mmol/L (136-145) 09/26/21 04:02 Potassium 3.9 mmol/L (3.5-5.1) 09/26/21 04:02 Chloride 115 mmol/L (98-107) H 09/26/21 04:02 Carbon Dioxide 22 mmol/L (21-32) 09/26/21 04:02 Anion Gap 8.9 mEq/L (5.0-15.0) 09/26/21 04:02 BUN 27 mg/dL (7-18) H 09/26/21 04:02 Creatinine 0.90 mg/dL (0.55-1.3) 09/26/21 04:02 Est GFR (CKD-EPI) 61 ml/min (=/>90) L 09/26/21 04:02 Glucose 87 mg/dL (74-106) 09/26/21 04:02 Calcium 8.2 mg/dL (8.5-10.1) L 09/26/21 04:02 Magnesium 2.1 mg/dL (1.8-2.4) 09/26/21 04:02 Albumin 2.8 g/dL (3.4-5.0) L 09/26/21 04:02 Prealbumin 17.7 mg/dL (20-40) L 09/26/21 04:02 Urine Color Yellow (Yellow) 09/26/21 05:41 Urine Appearance Clear (Clear) 09/26/21 05:41 Urine pH 5.5 (5.0-7.0) 09/26/21 05:41 Ur Specific [place] 1.010 (1.005-1.030) 09/26/21 05:41 Glucose (UA)(Auto) Negative (Negative) 09/26/21 05:41 Urine Ketones Negative (Negative) 09/26/21 05:41 Urine Blood Trace-intact (Negative) H 09/26/21 05:41 Urine Nitrite Negative (Negative) 09/26/21 05:41 Urine Bilirubin Negative (Negative) 09/26/21 05:41 Urine Urobilinogen 0.2 mg/dL (0.2-1.0) 09/26/21 05:41 Ur Leukocyte Esterase Negative (Negative) 09/26/21 05:41 Urine RBC <5 /HPF (NONE SEEN) 09/26/21 05:41 Urine WBC <5 /HPF (<5) 09/26/21 05:41 Ur Squamous Epith Cells <5 /HPF (NONE SEEN) 09/26/21 05:41 Ur Urothelial Cells Cancelled 09/26/21 04:15 Calcium Oxalate Crystal Cancelled 09/26/21 04:15 Uric Acid Crystals Cancelled 09/26/21 04:15 Triple Phos Crystals Cancelled 09/26/21 04:15 Other Crystals Cancelled 09/26/21 04:15 Amorphous Sediment Cancelled 09/26/21 04:15 Glitter Cells Cancelled 09/26/21 04:15 Urine Bacteria <20 /HPF (<20) 09/26/21 05:41 Hyaline Casts Cancelled 09/26/21 04:15 Fine Granular Casts Cancelled 09/26/21 04:15 Coarse Granular Casts Cancelled 09/26/21 04:15 Waxy Casts Cancelled 09/26/21 04:15 RBC Casts Cancelled 09/26/21 04:15 WBC Casts Cancelled 09/26/21 04:15 Urine Mucus Cancelled 09/26/21 04:15 Urine Other Cancelled 09/26/21 04:15 Urine Trichomonas Cancelled 09/26/21 04:15 Urine Yeast Cancelled 09/26/21 04:15 Ur Yeast w Hyphae Cancelled 09/26/21 04:15 Urine Yeast (Budding) Cancelled 09/26/21 04:15 Urine Sperm Cancelled 09/26/21 04:15 Urine Culture Reflexed Not needed 09/26/21 05:41 Urine Total Volume Cancelled 09/26/21 04:15 Urine Total Protein Negative (Negative) 09/26/21 05:41 SARS-CoV-2 Rap RNA(RT-PCR) Negative (NEGATIVE) 09/25/21 20:08 Weight: 159 lb 14.4 oz Wound Present: No Physician Update: Labs reviewed and are stable. Ambuylated 250' with CGA. Min assist with sit to stand. Set up for grooming, upper, lower body dressing. Mod assit for toileting. Poor judgement. Summary: Patient's care plan and [facility] goals have been reviewed and revised as necessary. Please see the Rehabilitation Signature page for all necessary signatures.
[2021-09-27] MEDS ORDERED: LIDOCAINE 4% PATCH TOP ONE (14:30)
--- NOTE | 2021-09-27 19:45 | PN ---
Date of Progress Note: 09/27/2021 Subjective: The patient was seen this morning for followup. No new complaints or problems reported by patient. Lying in bed, not in distress. Objective: Vital Signs: Reviewed. HEENT: Unremarkable. Lungs: Clear to auscultation. Heart: Sounds normal. Abdomen: Soft. Bowel sounds normal. No guarding, rigidity, tenderness, distention. Extremities: No leg edema. Impression: 1.Insufficiency fracture of sacrum. 2.Hypertension. 3.Hyperlipidemia. 4.Overactive bladder. Plan: We will go ahead and continue current medication. Continue physical therapy under guidance of Dr. Bee. We will continue current DVT prophylaxis with Eliquis. I will see her tomorrow for sulaiman jo. Vital signs reviewed. Blood pressure is stable. JOSE/MODL Voice ID: [id number] Report ID: [id number]
[2021-09-27] MEDS: DONEPEZIL HCL 5 MG TAB PO SCH (21:25)
[2021-09-27] MEDS: AMLODIPINE 5 MG TAB PO SCH (21:26)
[2021-09-27] MEDS: lisinopriL 20 MG TAB PO SCH (21:26)
[2021-09-27] MEDS: FAMOTIDINE 20 MG TAB PO SCH (21:26)
[2021-09-27] MEDS: GABAPENTIN 100 MG CAP PO SCH (21:26)
[2021-09-27] MEDS: DOCUSATE NA/SENNA CONC 1 TAB PO SCH (21:27)
[2021-09-28] MEDS: LIDOCAINE 4% PATCH TOP SCH (07:57)
[2021-09-28] MEDS: MEMANTINE HCL 10 MG TABLET PO SCH ×2 (07:58→19:57)
[2021-09-28] MEDS: MAGNESIUM OXIDE 400 MG TAB PO SCH ×2 (07:58→19:56)
[2021-09-28] MEDS: DULOXETINE 20 MG CAP PO SCH (07:58)
[2021-09-28] MEDS: APIXABAN 2.5 MG TABLET PO SCH ×2 (07:59→19:57)
[2021-09-28] MEDS: VITAMIN D 5,000 UNIT CAP PO SCH (07:59)
[2021-09-28] MEDS: MIRABEGRON 50 MG PO SCH (07:59)
--- NOTE | 2021-09-28 14:09 | PN ---
Date of Progress Note: 09/28/2021 Subjective: The patient was seen this morning for followup. No new complaints or problems reported by her. She was lying in bed. Her son was with her at bedside. She had just finished doing her the rapy session this morning when I saw her. She has some lower back pain, otherwise no other complaint s reported. Objective: Vital Signs: Reviewed. HEENT: Unremarkable. Lungs: Clear to auscultation. Heart: Sounds normal. Abdomen: Soft. Bowel sounds normal. No guarding, rigidity, tenderness, or distention. Extremities: No leg edema. Impression: 1.Insufficiency fracture of sacrum. 2.Hypertension. 3.Hyperlipidemia. 4.Overactive bladder. 5.Senile dementia. Plan: We will go ahead and have Physical Therapy continue to work with the patient under guidance of Dr. Bee. Continue current antihypertensive medications, continue DVT prophylaxis using Eliquis . We will continue her Myrbetriq for her overactive bladder. Continue current medications for her b ack pain and I will see her tomorrow for followup. The patient was encouraged to drink 50-60 ounce o f water a day and also nutritional supplement like Ensure 2-3 cans a day was advised. JOSE/MODL Voice ID: [id number] Report ID: [id number]
[2021-09-28] MEDS: ENSURE HIGH PROTEIN 237 ML CAN PO SCH ×2 (14:51→19:58)
[2021-09-28] MEDS: ACETAMINOPHEN 500 MG TAB PO PRN (19:55)
[2021-09-28] MEDS: GABAPENTIN 100 MG CAP PO SCH (19:56)
[2021-09-28] MEDS: DOCUSATE NA/SENNA CONC 1 TAB PO SCH (19:56)
[2021-09-28] MEDS: lisinopriL 20 MG TAB PO SCH (19:57)
[2021-09-28] MEDS: AMLODIPINE 5 MG TAB PO SCH (19:57)
[2021-09-28] MEDS: FAMOTIDINE 20 MG TAB PO SCH (19:57)
[2021-09-28] MEDS: DONEPEZIL HCL 5 MG TAB PO SCH (19:57)
[2021-09-29] MEDS: DULOXETINE 20 MG CAP PO SCH (08:27)
[2021-09-29] MEDS: APIXABAN 2.5 MG TABLET PO SCH ×2 (08:27→19:41)
[2021-09-29] MEDS: LIDOCAINE 4% PATCH TOP SCH (08:27)
[2021-09-29] MEDS: VITAMIN D 5,000 UNIT CAP PO SCH (08:27)
[2021-09-29] MEDS: MEMANTINE HCL 10 MG TABLET PO SCH ×2 (08:27→19:41)
[2021-09-29] MEDS: MAGNESIUM OXIDE 400 MG TAB PO SCH ×2 (08:27→19:41)
[2021-09-29] MEDS: MIRABEGRON 50 MG PO SCH (08:28)
[2021-09-29] MEDS: ENSURE HIGH PROTEIN 237 ML CAN PO SCH ×3 (08:28→19:42)
[2021-09-29] MEDS: LIDOCAINE 5% OINT 30 GM TUBE TOP PRN (10:37)
[2021-09-29] MEDS: CELECOXIB 100 MG CAPSULE PO SCH (12:10)
--- NOTE | 2021-09-29 15:16 | PN ---
Date of Progress Note: 09/29/2021 Subjective: The patient was seen this morning for followup. She was complaining of some pain in her left wrist joint area. No fall. No injury. Objective: Vital Signs: Reviewed. HEENT: Unremarkable. Lungs: Clear to auscultation. Heart: Sounds normal. Abdomen: Soft. Bowel sounds normal. No guarding, rigidity, tenderness, or distention. Extremities: No leg edema. Joint Examination: Left lateral wrist joint area has mild swelling with some tenderness and pain. F ull range of motion. No evidence of any cellulitis. Impression: 1.Osteoarthritis, multiple sites. 2.Insufficiency fracture of sacrum. 3.Hypertension. Plan: We will continue current antihypertensive medication, continue DVT prophylaxis. We will start the patient on Celebrex 200 mg daily after mealtime starting today at lunchtime and we will continue topical lidocaine as per order from Dr. Bee to left wrist area. Details were discussed with whitley verma patient and her son who was at bedside. JOSE/MODL Voice ID: [id number] Report ID: [id number]
[2021-09-29] MEDS: GABAPENTIN 100 MG CAP PO SCH (19:41)
[2021-09-29] MEDS: FAMOTIDINE 20 MG TAB PO SCH (19:41)
[2021-09-29] MEDS: DONEPEZIL HCL 5 MG TAB PO SCH (19:42)
[2021-09-29] MEDS: DOCUSATE NA/SENNA CONC 1 TAB PO SCH (19:42)
[2021-09-29] MEDS: AMLODIPINE 5 MG TAB PO SCH (19:50)
[2021-09-29] MEDS: lisinopriL 20 MG TAB PO SCH (19:51)
[2021-09-30] MEDS: APIXABAN 2.5 MG TABLET PO SCH ×2 (07:39→20:09)
[2021-09-30] MEDS: LIDOCAINE 4% PATCH TOP SCH (08:33)
[2021-09-30] MEDS: MEMANTINE HCL 10 MG TABLET PO SCH ×2 (08:34→20:09)
[2021-09-30] MEDS: CELECOXIB 100 MG CAPSULE PO SCH (08:34)
[2021-09-30] MEDS: VITAMIN D 5,000 UNIT CAP PO SCH (08:34)
[2021-09-30] MEDS: MAGNESIUM OXIDE 400 MG TAB PO SCH ×2 (08:34→20:08)
[2021-09-30] MEDS: MIRABEGRON 50 MG PO SCH (08:34)
[2021-09-30] MEDS: DULOXETINE 20 MG CAP PO SCH (08:34)
[2021-09-30] MEDS: ENSURE HIGH PROTEIN 237 ML CAN PO SCH ×3 (08:35→20:10)
[2021-09-30] MEDS: ACETAMINOPHEN 500 MG TAB PO PRN (08:41)
--- NOTE | 2021-09-30 17:28 | R.PN ---
PROGRESS NOTES ENCOUNTER DATE AND TIME: 09/30/2021 11:03 (CDT) NAME PETE OLVERA DATE OF : 1930 DATE OF ADMISSION: 09/25/2021 16:45 (CDT) S32.10XA Unspecified fracture of sacrum, initial encounter for closed fractureCHIEF COMPLAINT: Sacrum fracture with pelvic pain SUBJECTIVE: Pt denied any Shortness of Breath. Pt denied any depression. WBC 6.1, Hgb 11.5, Plt 235, prealbumin 17.7, Ca 8.2. Language and speech therapy done with 45 to 100% accuracy. Ambulated 520' with contact guard assistance using a rolling walker. VITAL SIGNS Temperature: 98.0 F SBP/DBP: 100/52 Pulse: 69 Resp: 16 MEDICATION ALLERGIES: No Known Drug Allergies (NKDA) ENVIRONMENTAL ALLERGIES: - Substance Allergies None Known - Other Allergies None Known NURSING: - Shower allowing shower - Skin care per protocol PRECAUTIONS: - Fall Precaution Bed alarm TABS alarm Wheel chair alarm - Incontinence Bowel Incontinence Bladder Incontinence - Bleeding Risk Eliquis - Cardiac Precaution Monitor blood pressure, heart rate, lower extremity edema, notify MD for shortness of breath or chest pain Monitor patient for excessive elevation of heart rate and blood pressure during therapy Nursing and Therapy to monitor pt before and after therapy sessions for signs of Chest pain - DVT Risk due to restricted mobility and age - Skin Breakdown Risk due to restricted mobility and age ACTIVITIES OOB only with supervision THERAPIES: - Dietary and Nutrition Adequate Nutrition. Nutritional Education. Nutritional Supplements. - Occupational Therapy Cognitive Retraining. Patient needs Occupational Therapy for a daily minimum of 1.5 hours at least 5 out of 7 days, to improve Activities of Daily Living, including: Eating, Grooming, Bathing, Dressing, Toileting, Toilet Transfers, Community Reintegration, Higher functional activities, Adaptive Equipme nt, Splinting, Household Tasks, and Other activities as determined. Visual Perceptual Training. - Speech Therapy Cognitive Training. Expressive Language Skills. Memory Strategies. Patient needs Speech Therapy for a daily minimum of 1.5 hours at least 5 out of 7 days, to improve: Swallowing, Cognition, Language Ski lls, and Compensatory Strategies. Receptive Language Skills. Speech Intelligibility Training. - Physical Therapy Patient needs Physical Therapy for a daily minimum of 1.5 hours at least 5 out of 7 days, to improve: Mobility, Strengthening, Transfers, Stretching, ROM, Endurance, Ability to manage stairs, Gait, and Balance. PHYSICAL EXAM - Gen Alert and awake Lying in bed No apparent distress Oriented to: person, time, and place - Skin No skin breakdown. Normacephalic - Eyes No abnormalities - ENMT No abnormalities - Neck No abnormalities - CVS RRR - Chest No abnormalities - Resp No wheezing - Abd Soft - GI + bowel sounds Deferred - No abnormalities - Ext Mild bilateral lower extremity edema. - MSK 4+/5 weakness in both lower extremities. - Neuro No focal deficits ASSESSMENT: Pt. is a 89 yo female of unknown race.On 09/07/2021 she was admitted to [facility] Bed with diagnos is S32.10XA Unspecified fracture of sacrum, initial encounter for closed fracture.Her impairment moiz aguiar is Orthopaedic Disorders 08 - Pelvic Fracture (08.3).Pre-morbidly, Pt. was independent/mod-I in Locomotion and Self-Care; and she had good Balance, Transfers Control, Endurance, and Safety Awarene ss.Currently, she has deficits of Locomotion, Safety Awareness, Balance, Transfers Control, and Endur ance.Pt. is now referred to [facility] for acute in-patient rehabilitation in order to maximize patient's functional independence in activities of daily living, strength, ROM, and mobility.- Rehab Goal Patient has realistic goal of being discharged at assistance level 6-Zeynep to reside at Home with Pt self. WBC 6.1, Hgb 11.5, prealbumin 17.7, UA is essentially negative, covid-19 is negativeSelf-propelled wh eelchair 500' with SBA.MDM/PLAN: - Physical Therapy Decreased range of motion - to improve, our physical therapists will perform initial evaluation of p t's status upon admission and devise an individualized program for increasing patient's Range of Alexis on. Gait dysfunction - to improve, our physical therapists will perform initial evaluation of pt's statu s upon admission and devise an individualized program for Gait Training, and Wheel Chair mobility Inability to transfer - to improve, our physical therapists will perform initial evaluation of pt's status upon admission and devise an individualized program for Bed mobility Need for home safety evaluation - to improve, our physical therapists will perform initial evaluatio n of pt's status upon admission and devise an individualized program for Home Evaluation Need in caregiver upon discharge - to improve, our physical therapists will perform initial evaluati on of pt's status upon admission and devise an individualized program for Caregiver Training New precaution - to improve, our physical therapists will perform initial evaluation of pt's status upon admission and devise an individualized program for Patient precaution education Edema - to improve, our physical therapists will perform initial evaluation of pt's status upon admis dhaval and devise an individualized program for Elevation Training, and Lymphedema Therapy Poor balance - to improve, our physical therapists will perform initial evaluation of pt's status up on admission and devise an individualized program for Balance Training Poor endurance - to improve, our physical therapists will perform initial evaluation of pt's status upon admission and devise an individualized program for Endurance Training Weakness - to improve, our physical therapists will perform initial evaluation of pt's status upon a dmission and devise an individualized program for Aquatic Therapy, Neuromuscular Reeducation, and Str engthening Achieving independence - to improve, our physical therapists will perform initial evaluation of pt's status upon admission and devise an individualized program for Community Reintegration Activities - Occupational Therapy ADL deficits - to improve, our occupation therapists will perform initial evaluation of pt's status upon admission and devise an individualized program for Bathing, Bed mobility, Community Reintegratio n, Cooking, Dressing, Eating, Fine Motor Skills, Grooming, Homemaking, Kitchen Mobility, Laundry, Pat ient Education, Safety Awareness, Splinting - Positioning, Transfers(Toilet, Tub, Shower), and Wheel Chair Management Need for senior caregiver - to improve, our occupation therapists will perform initial evaluation of pt's status upon admission and devise an individualized program for Caregiver Training Weakness - to improve, our occupation therapists will perform initial evaluation of pt's status upon admission and devise an individualized program for Aquatic Therapy, Balance, Endurance, UE ROM, and UE strengthening - Other See attached MAR (Medication Administration Record) - Diet Type Continue Cardiac - Diet - Liquid Texture Continue Thin - Tube Feed Continue N/A - Incontinence Bowel Incontinence Bladder Incontinence - Bleeding Risk Eliquis - DVT Risk due to restricted mobility and age - Skin Breakdown Risk due to restricted mobility and age - Cardiac Precaution Monitor blood pressure, heart rate, lower extremity edema, notify MD for shortness of breath or chest pain Monitor patient for excessive elevation of heart rate and blood pressure during therapy Nursing and Therapy to monitor pt before and after therapy sessions for signs of Chest pain - Fall Precaution Bed alarm TABS alarm Wheel chair alarm - Skin care per protocol - Diet - Solid Texture Continue Regular - Shower allowing shower FUNCTIONAL STATUS: UPDATED AT WEEKLY TEAM CONFERENCE - Bladder Same accident frequency: 7-Ind - No accidents in the past 7 days - Bowel Same accident frequency: 7-Ind - No accidents in the past 7 days - Walking Same score based on distance walked: 0(N/A) Same score based on distance walked: 3(>=150ft) - Wheelchair Same score based on distance traveled: 0(N/A) FUNCTIONAL STATUS: - Self-Care A. Eating Ind B. Grooming Zeynep C. Bathing modA D. Dressing - Upper Leandra E. Dressing - Lower modA F. Toileting sup - Sphincter Control G. Bladder control Zeynep H. Bowel control Zeynep - Transfers Control I. Bed/Chair/Wheelchair Ind J. Toilet modA K. Tub/Shower modA - Locomotion L. Walk/Wheelchair (B) modA M. Stairs Dep - Communication N. Comprehension (B) sup O. Expression (B) sup - Social Cognition P. Social Interaction sup Q. Problem Solving sup R. Memory sup - Endurance Poor - Balance Fair - Safety Awareness Fair QI SCORES: - Self-Care A. Eating 06-Independent B. Oral hygiene 06-Independent C. Toileting hygiene 03-Partial/moderate assistance E. Shower/bathe self 03-Partial/moderate assistance F. Upper body dressing 04-Supervision or touching assistance G. Lower body dressing 03-Partial/moderate assistance H. Putting on/taking off footwear 03-Partial/moderate assistance - Mobility A. Roll left and right 03-Partial/moderate assistance B. Sit to lying 04-Supervision or touching assistance C. Lying to sitting on side of bed 03-Partial/moderate assistance D. Sit to stand 03-Partial/moderate assistance E. Chair/[id number] transfer 03-Partial/moderate assistance F. Toilet transfer 03-Partial/moderate assistance G. Car transfer 03-Partial/moderate assistance I. Walk 10 feet 04-Supervision or touching assistance J. Walk 50 feet with two turns 04-Supervision or touching assistance K. Walk 150 feet 04-Supervision or touching assistance L. Walking 10 feet on uneven surfaces 88-Not attempted due to medical condition or safety concerns M. 1 step (curb) 88-Not attempted due to medical condition or safety concerns N. 4 steps 88-Not attempted due to medical condition or safety concerns O. 12 steps 88-Not attempted due to medical condition or safety concerns P. Picking up object 88-Not attempted due to medical condition or safety concerns R. Wheel 50 feet with two turns 09-Not applicable S. Wheel 150 feet 09-Not applicable - Bladder and Bowel Bladder continence 3-Incontinent daily Bowel continence 1-Occasionally incontinent - Endurance Fair - Balance Fair - Safety Awareness Fair [facility] DEFICITS: Mobility, Endurance, Balance, Safety Awareness, and Self-Care SIGNATURE PANEL: (CDT)
[2021-09-30] MEDS: FAMOTIDINE 20 MG TAB PO SCH (20:08)
[2021-09-30] MEDS: DONEPEZIL HCL 5 MG TAB PO SCH (20:08)
[2021-09-30] MEDS: DOCUSATE NA/SENNA CONC 1 TAB PO SCH (20:08)
[2021-09-30] MEDS: GABAPENTIN 100 MG CAP PO SCH (20:09)
[2021-09-30] MEDS: lisinopriL 10 MG TAB PO SCH (20:10)
[2021-09-30] MEDS: AMLODIPINE 5 MG TAB PO SCH (20:10)
[2021-09-30] MEDS: HYDROCODONE/APAP 5/325 MG TAB PO PRN (20:12)
[2021-10-01] MEDS: LIDOCAINE 4% PATCH TOP SCH (06:52)
[2021-10-01] MEDS: LIDOCAINE 5% OINT 30 GM TUBE TOP PRN (06:53)
--- NOTE | 2021-10-01 07:08 | PN ---
Date of Progress Note: 09/30/2021 Subjective: The patient was seen this morning for followup. No new complaints or problems reported by her. Lying in bed, not in distress. Her pain from her left wrist is reported to be better compar ed to yesterday. Objective: Vital Signs: Reviewed. HEENT: Unremarkable. Lungs: Clear to auscultation. Heart: Sounds normal. Abdomen: Soft. Bowel sounds normal. No guarding, rigidity, tenderness, distention. Extremities: No leg edema. Impression: 1.Insufficiency fracture of sacrum. 2.Osteoarthritis, multiple sites. 3.Hypertension. 4.Senile dementia. Plan: We will go ahead and continue current medication except change her lisinopril dose because her blood pressure is on the lower side. We will continue amlodipine, and continue current DVT prophyla xis and Celebrex for her arthritis problem as well, which was started yesterday. I will see her jeramie rrow for follow. JOSE/MODL Voice ID: [id number] Report ID: [id number]
[2021-10-01] MEDS: APIXABAN 2.5 MG TABLET PO SCH ×2 (07:32→19:07)
[2021-10-01] MEDS: MEMANTINE HCL 10 MG TABLET PO SCH ×2 (07:32→19:08)
[2021-10-01] MEDS: MAGNESIUM OXIDE 400 MG TAB PO SCH ×2 (07:32→19:08)
[2021-10-01] MEDS: MIRABEGRON 50 MG PO SCH (07:32)
[2021-10-01] MEDS: DULOXETINE 20 MG CAP PO SCH (07:32)
[2021-10-01] MEDS: CELECOXIB 100 MG CAPSULE PO SCH (07:32)
[2021-10-01] MEDS: ENSURE HIGH PROTEIN 237 ML CAN PO SCH ×3 (07:33→18:50)
[2021-10-01] MEDS: VITAMIN D 5,000 UNIT CAP PO SCH (07:33)
--- NOTE | 2021-10-01 18:15 | R.PN ---
PROGRESS NOTES ENCOUNTER DATE AND TIME: 10/01/2021 18:13 (CDT) NAME PETE OLVERA DATE OF : 1930 DATE OF ADMISSION: 09/25/2021 16:45 (CDT) S32.10XA Unspecified fracture of sacrum, initial encounter for closed fractureCHIEF COMPLAINT: Sacrum fracture with pelvic pain SUBJECTIVE: Pt denied any Shortness of Breath. Pt denied any depression. WBC 6.1, Hgb 11.5, Plt 235, prealbumin 17.7, Ca 8.2. Language and speech therapy done with 45 to 100% accuracy. Ambulated 250' with standby assistance using a rolling walker. VITAL SIGNS Temperature: 97.7 F SBP/DBP: 129/60 Pulse: 69 Resp: 16 MEDICATION ALLERGIES: No Known Drug Allergies (NKDA) ENVIRONMENTAL ALLERGIES: - Substance Allergies None Known - Other Allergies None Known NURSING: - Shower allowing shower - Skin care per protocol PRECAUTIONS: - Fall Precaution Bed alarm TABS alarm Wheel chair alarm - Incontinence Bowel Incontinence Bladder Incontinence - Bleeding Risk Eliquis - Cardiac Precaution Monitor blood pressure, heart rate, lower extremity edema, notify MD for shortness of breath or chest pain Monitor patient for excessive elevation of heart rate and blood pressure during therapy Nursing and Therapy to monitor pt before and after therapy sessions for signs of Chest pain - DVT Risk due to restricted mobility and age - Skin Breakdown Risk due to restricted mobility and age ACTIVITIES OOB only with supervision THERAPIES: - Dietary and Nutrition Adequate Nutrition. Nutritional Education. Nutritional Supplements. - Occupational Therapy Cognitive Retraining. Patient needs Occupational Therapy for a daily minimum of 1.5 hours at least 5 out of 7 days, to improve Activities of Daily Living, including: Eating, Grooming, Bathing, Dressing, Toileting, Toilet Transfers, Community Reintegration, Higher functional activities, Adaptive Equipme nt, Splinting, Household Tasks, and Other activities as determined. Visual Perceptual Training. - Speech Therapy Cognitive Training. Expressive Language Skills. Memory Strategies. Patient needs Speech Therapy for a daily minimum of 1.5 hours at least 5 out of 7 days, to improve: Swallowing, Cognition, Language Ski lls, and Compensatory Strategies. Receptive Language Skills. Speech Intelligibility Training. - Physical Therapy Patient needs Physical Therapy for a daily minimum of 1.5 hours at least 5 out of 7 days, to improve: Mobility, Strengthening, Transfers, Stretching, ROM, Endurance, Ability to manage stairs, Gait, and Balance. PHYSICAL EXAM - Gen Alert and awake Lying in bed No apparent distress Oriented to: person, time, and place - Skin No skin breakdown. Normacephalic - Eyes No abnormalities - ENMT No abnormalities - Neck No abnormalities - CVS RRR - Chest No abnormalities - Resp No wheezing - Abd Soft - GI + bowel sounds Deferred - No abnormalities - Ext Mild bilateral lower extremity edema. - MSK 4+/5 weakness in both lower extremities. - Neuro No focal deficits ASSESSMENT: Pt. is a 89 yo female of unknown race.On 09/07/2021 she was admitted to [facility] Bed with diagnos is S32.10XA Unspecified fracture of sacrum, initial encounter for closed fracture.Her impairment moiz aguiar is Orthopaedic Disorders 08 - Pelvic Fracture (08.3).Pre-morbidly, Pt. was independent/mod-I in Locomotion and Self-Care; and she had good Balance, Transfers Control, Endurance, and Safety Awarene ss.Currently, she has deficits of Locomotion, Safety Awareness, Balance, Transfers Control, and Endur ance.Pt. is now referred to [facility] for acute in-patient rehabilitation in order to maximize patient's functional independence in activities of daily living, strength, ROM, and mobility.- Rehab Goal Patient has realistic goal of being discharged at assistance level 6-Zeynep to reside at Home with Pt self. WBC 6.1, Hgb 11.5, prealbumin 17.7, UA is essentially negative, covid-19 is negativeSelf-propelled wh eelchair 500' with SBA.MDM/PLAN: - Physical Therapy Decreased range of motion - to improve, our physical therapists will perform initial evaluation of p t's status upon admission and devise an individualized program for increasing patient's Range of Alexis on. Gait dysfunction - to improve, our physical therapists will perform initial evaluation of pt's statu s upon admission and devise an individualized program for Gait Training, and Wheel Chair mobility Inability to transfer - to improve, our physical therapists will perform initial evaluation of pt's status upon admission and devise an individualized program for Bed mobility Need for home safety evaluation - to improve, our physical therapists will perform initial evaluatio n of pt's status upon admission and devise an individualized program for Home Evaluation Need in caregiver upon discharge - to improve, our physical therapists will perform initial evaluati on of pt's status upon admission and devise an individualized program for Caregiver Training New precaution - to improve, our physical therapists will perform initial evaluation of pt's status upon admission and devise an individualized program for Patient precaution education Edema - to improve, our physical therapists will perform initial evaluation of pt's status upon admi ssion and devise an individualized program for Elevation Training, and Lymphedema Therapy Poor balance - to improve, our physical therapists will perform initial evaluation of pt's status up on admission and devise an individualized program for Balance Training Poor endurance - to improve, our physical therapists will perform initial evaluation of pt's status upon admission and devise an individualized program for Endurance Training Weakness - to improve, our physical therapists will perform initial evaluation of pt's status upon a dmission and devise an individualized program for Aquatic Therapy, Neuromuscular Reeducation, and Str engthening Achieving independence - to improve, our physical therapists will perform initial evaluation of pt's status upon admission and devise an individualized program for Community Reintegration Activities - Occupational Therapy ADL deficits - to improve, our occupation therapists will perform initial evaluation of pt's status upon admission and devise an individualized program for Bathing, Bed mobility, Community Reintegratio n, Cooking, Dressing, Eating, Fine Motor Skills, Grooming, Homemaking, Kitchen Mobility, Laundry, Pat ient Education, Safety Awareness, Splinting - Positioning, Transfers(Toilet, Tub, Shower), and Wheel Chair Management Need for foster care therapist - to improve, our occupation therapists will perform initial evaluation of pt's status upon admission and devise an individualized program for Caregiver Training Weakness - to improve, our occupation therapists will perform initial evaluation of pt's status upon admission and devise an individualized program for Aquatic Therapy, Balance, Endurance, UE ROM, and UE strengthening - Other See attached MAR (Medication Administration Record) - Diet Type Continue Cardiac - Diet - Liquid Texture Continue Thin - Tube Feed Continue N/A - Incontinence Bowel Incontinence Bladder Incontinence - Bleeding Risk Eliquis - DVT Risk due to restricted mobility and age - Skin Breakdown Risk due to restricted mobility and age - Cardiac Precaution Monitor blood pressure, heart rate, lower extremity edema, notify MD for shortness of breath or ches t pain Monitor patient for excessive elevation of heart rate and blood pressure during therapy Nursing and Therapy to monitor pt before and after therapy sessions for signs of Chest pain - Fall Precaution Bed alarm TABS alarm Wheel chair alarm - Skin care per protocol - Diet - Solid Texture Continue Regular - Shower allowing shower FUNCTIONAL STATUS: UPDATED AT WEEKLY TEAM CONFERENCE - Bladder Same accident frequency: 7-Ind - No accidents in the past 7 days - Bowel Same accident frequency: 7-Ind - No accidents in the past 7 days - Walking Same score based on distance walked: 0(N/A) Same score based on distance walked: 3(>=150ft) - Wheelchair Same score based on distance traveled: 0(N/A) FUNCTIONAL STATUS: - Self-Care A. Eating Ind B. Grooming Zeynep C. Bathing modA D. Dressing - Upper Leandra E. Dressing - Lower modA F. Toileting sup - Sphincter Control G. Bladder control Zeynep H. Bowel control Zeynep - Transfers Control I. Bed/Chair/Wheelchair Ind J. Toilet modA K. Tub/Shower modA - Locomotion L. Walk/Wheelchair (B) modA M. Stairs Dep - Communication N. Comprehension (B) sup O. Expression (B) sup - Social Cognition P. Social Interaction sup Q. Problem Solving sup R. Memory sup - Endurance Poor - Balance Fair - Safety Awareness Fair QI SCORES: - Self-Care A. Eating 06-Independent B. Oral hygiene 06-Independent C. Toileting hygiene 03-Partial/moderate assistance E. Shower/bathe self 03-Partial/moderate assistance F. Upper body dressing 04-Supervision or touching assistance G. Lower body dressing 03-Partial/moderate assistance H. Putting on/taking off footwear 03-Partial/moderate assistance - Mobility A. Roll left and right 03-Partial/moderate assistance B. Sit to lying 04-Supervision or touching assistance C. Lying to sitting on side of bed 03-Partial/moderate assistance D. Sit to stand 03-Partial/moderate assistance E. Chair/[id number]-rjhdn transfer 03-Partial/moderate assistance F. Toilet transfer 03-Partial/moderate assistance G. Car transfer 03-Partial/moderate assistance I. Walk 10 feet 04-Supervision or touching assistance J. Walk 50 feet with two turns 04-Supervision or touching assistance K. Walk 150 feet 04-Supervision or touching assistance L. Walking 10 feet on uneven surfaces 88-Not attempted due to medical condition or safety concerns M. 1 step (curb) 88-Not attempted due to medical condition or safety concerns N. 4 steps 88-Not attempted due to medical condition or safety concerns O. 12 steps 88-Not attempted due to medical condition or safety concerns P. Picking up object 88-Not attempted due to medical condition or safety concerns R. Wheel 50 feet with two turns 09-Not applicable S. Wheel 150 feet 09-Not applicable - Bladder and Bowel Bladder continence 3-Incontinent daily Bowel continence 1-Occasionally incontinent - Endurance Fair - Balance Fair - Safety Awareness Fair CURRENT [facility]. DEFICITS: Mobility, Endurance, Balance, Safety Awareness, and Self-Care SIGNATURE PANEL: (CDT)
[2021-10-01] MEDS: GABAPENTIN 100 MG CAP PO SCH (18:47)
[2021-10-01] MEDS: FAMOTIDINE 20 MG TAB PO SCH (18:48)
[2021-10-01] MEDS: DONEPEZIL HCL 5 MG TAB PO SCH ×2 (19:07→19:08)
[2021-10-01] MEDS: AMLODIPINE 5 MG TAB PO SCH (19:07)
[2021-10-01] MEDS: DOCUSATE NA/SENNA CONC 1 TAB PO SCH (19:07)
[2021-10-01] MEDS: lisinopriL 10 MG TAB PO SCH (19:09)
[2021-10-01] MEDS: HYDROCODONE/APAP 5/325 MG TAB PO PRN (20:26)
--- NOTE | 2021-10-02 00:14 | PN ---
Date of Progress Note: 10/01/2021 Subjective: The patient was seen this morning for followup. No new complaints or problems reported by the patient. Lying in bed, not in distress. Her left wrist pain and swelling have improved. Objective: Vital Signs: Reviewed. HEENT: Examination unremarkable. Lungs: Clear to auscultation. Cardiac: Heart sounds normal. Abdomen: Soft. Bowel sounds normal. No guarding, rigidity, tenderness, or distention. Extremities: No leg edema. Impression: 1.Osteoarthritis, multiple sites. 2.Insufficiency fracture of sacrum. 3.Hypertension. 4.Senile dementia. Plan: We will go ahead and continue current medications. We will continue current physical therapy under guidance of Dr. Bee. Continue Celebrex, which was started yesterday and I will see her to [facility] for followup. JOSE/MODL Voice ID: [id number] Report ID: [id number]
[2021-10-02] MEDS: MIRABEGRON 50 MG PO SCH (07:40)
[2021-10-02] MEDS: LIDOCAINE 5% OINT 30 GM TUBE TOP PRN (07:40)
[2021-10-02] MEDS: CELECOXIB 100 MG CAPSULE PO SCH (07:41)
[2021-10-02] MEDS: ENSURE HIGH PROTEIN 237 ML CAN PO SCH ×3 (07:41→19:54)
[2021-10-02] MEDS: MEMANTINE HCL 10 MG TABLET PO SCH ×2 (07:41→19:53)
[2021-10-02] MEDS: DULOXETINE 20 MG CAP PO SCH (07:41)
[2021-10-02] MEDS: APIXABAN 2.5 MG TABLET PO SCH ×2 (07:41→19:53)
[2021-10-02] MEDS: MAGNESIUM OXIDE 400 MG TAB PO SCH ×2 (07:42→19:54)
[2021-10-02] MEDS: VITAMIN D 5,000 UNIT CAP PO SCH (07:43)
[2021-10-02] MEDS: LIDOCAINE 4% PATCH TOP SCH (12:55)
--- NOTE | 2021-10-02 17:50 | R.PN ---
PROGRESS NOTES ENCOUNTER DATE AND TIME: 10/02/2021 17:47 (CDT) NAME PETE OLVERA DATE OF : 1930 DATE OF ADMISSION: 09/25/2021 16:45 (CDT) S32.10XA Unspecified fracture of sacrum, initial encounter for closed fractureCHIEF COMPLAINT: Sacrum fracture with pelvic pain SUBJECTIVE: Pt denied any Shortness of Breath. Pt denied any depression. WBC 6.1, Hgb 11.5, Plt 235, prealbumin 17.7, Ca 8.2. Language and speech therapy done with 45 to 100% accuracy. Ambulated 500' with standby assistance using a rolling walker. VITAL SIGNS Temperature: 97.9 F SBP/DBP: 117/56 Pulse: 73 Resp: 15 MEDICATION ALLERGIES: No Known Drug Allergies (NKDA) ENVIRONMENTAL ALLERGIES: - Substance Allergies None Known - Other Allergies None Known NURSING: - Shower allowing shower - Skin care per protocol PRECAUTIONS: - Fall Precaution Bed alarm TABS alarm Wheel chair alarm - Incontinence Bowel Incontinence Bladder Incontinence - Bleeding Risk Eliquis - Cardiac Precaution Monitor blood pressure, heart rate, lower extremity edema, notify MD for shortness of breath or chest pain Monitor patient for excessive elevation of heart rate and blood pressure during therapy Nursing and Therapy to monitor pt before and after therapy sessions for signs of Chest pain - DVT Risk due to restricted mobility and age - Skin Breakdown Risk due to restricted mobility and age ACTIVITIES OOB only with supervision THERAPIES: - Dietary and Nutrition Adequate Nutrition. Nutritional Education. Nutritional Supplements. - Occupational Therapy Cognitive Retraining. Patient needs Occupational Therapy for a daily minimum of 1.5 hours at least 5 out of 7 days, to improve Activities of Daily Living, including: Eating, Grooming, Bathing, Dressing, Toileting, Toilet Transfers, Community Reintegration, Higher functional activities, Adaptive Equipme nt, Splinting, Household Tasks, and Other activities as determined. Visual Perceptual Training. - Speech Therapy Cognitive Training. Expressive Language Skills. Memory Strategies. Patient needs Speech Therapy for a daily minimum of 1.5 hours at least 5 out of 7 days, to improve: Swallowing, Cognition, Language Ski lls, and Compensatory Strategies. Receptive Language Skills. Speech Intelligibility Training. - Physical Therapy Patient needs Physical Therapy for a daily minimum of 1.5 hours at least 5 out of 7 days, to improve: Mobility, Strengthening, Transfers, Stretching, ROM, Endurance, Ability to manage stairs, Gait, and Balance. PHYSICAL EXAM - Gen Alert and awake Lying in bed No apparent distress Oriented to: person, time, and place - Skin No skin breakdown. Normacephalic - Eyes No abnormalities - ENMT No abnormalities - Neck No abnormalities - CVS RRR - Chest No abnormalities - Resp No wheezing - Abd Soft - GI + bowel sounds Deferred - No abnormalities - Ext Mild bilateral lower extremity edema. - MSK 4+/5 weakness in both lower extremities. - Neuro No focal deficits ASSESSMENT: Pt. is a 89 yo female of unknown race.On 09/07/2021 she was admitted to [facility] Bed with diagnos is S32.10XA Unspecified fracture of sacrum, initial encounter for closed fracture.Her impairment moiz aguiar is Orthopaedic Disorders 08 - Pelvic Fracture (08.3).Pre-morbidly, Pt. was independent/mod-I in Locomotion and Self-Care; and she had good Balance, Transfers Control, Endurance, and Safety Awarene ss.Currently, she has deficits of Locomotion, Safety Awareness, Balance, Transfers Control, and Endur ance.Pt. is now referred to [facility] for acute in-patient rehabilitation in order to maximize patient's functional independence in activities of daily living, strength, ROM, and mobility.- Rehab Goal Patient has realistic goal of being discharged at assistance level 6-Zeynep to reside at Home with Pt self. WBC 6.1, Hgb 11.5, prealbumin 17.7, UA is essentially negative, covid-19 is negativeSelf-propelled wh eelchair 500' with SBA.MDM/PLAN: - Physical Therapy Decreased range of motion - to improve, our physical therapists will perform initial evaluation of p t's status upon admission and devise an individualized program for increasing patient's Range of Alexis on. Gait dysfunction - to improve, our physical therapists will perform initial evaluation of pt's statu s upon admission and devise an individualized program for Gait Training, and Wheel Chair mobility Inability to transfer - to improve, our physical therapists will perform initial evaluation of pt's status upon admission and devise an individualized program for Bed mobility Need for home safety evaluation - to improve, our physical therapists will perform initial evaluatio n of pt's status upon admission and devise an individualized program for Home Evaluation Need in caregiver upon discharge - to improve, our physical therapists will perform initial evaluati on of pt's status upon admission and devise an individualized program for Caregiver Training New precaution - to improve, our physical therapists will perform initial evaluation of pt's status upon admission and devise an individualized program for Patient precaution education Edema - to improve, our physical therapists will perform initial evaluation of pt's status upon admi ssion and devise an individualized program for Elevation Training, and Lymphedema Therapy Poor balance - to improve, our physical therapists will perform initial evaluation of pt's status up on admission and devise an individualized program for Balance Training Poor endurance - to improve, our physical therapists will perform initial evaluation of pt's status upon admission and devise an individualized program for Endurance Training Weakness - to improve, our physical therapists will perform initial evaluation of pt's status upon a dmission and devise an individualized program for Aquatic Therapy, Neuromuscular Reeducation, and Str engthening Achieving independence - to improve, our physical therapists will perform initial evaluation of pt's status upon admission and devise an individualized program for Community Reintegration Activities - Occupational Therapy ADL deficits - to improve, our occupation therapists will perform initial evaluation of pt's status upon admission and devise an individualized program for Bathing, Bed mobility, Community Reintegratio n, Cooking, Dressing, Eating, Fine Motor Skills, Grooming, Homemaking, Kitchen Mobility, Laundry, Pat ient Education, Safety Awareness, Splinting - Positioning, Transfers(Toilet, Tub, Shower), and Wheel Chair Management Need for animal care technician - to improve, our occupation therapists will perform initial evaluation of pt's status upon admission and devise an individualized program for Caregiver Training Weakness - to improve, our occupation therapists will perform initial evaluation of pt's status upon admission and devise an individualized program for Aquatic Therapy, Balance, Endurance, UE ROM, and UE strengthening - Other See attached MAR (Medication Administration Record) - Diet Type Continue Cardiac - Diet - Liquid Texture Continue Thin - Tube Feed Continue N/A - Incontinence Bowel Incontinence Bladder Incontinence - Bleeding Risk Eliquis - DVT Risk due to restricted mobility and age - Skin Breakdown Risk due to restricted mobility and age - Cardiac Precaution Monitor blood pressure, heart rate, lower extremity edema, notify MD for shortness of breath or ches t pain Monitor patient for excessive elevation of heart rate and blood pressure during therapy Nursing and Therapy to monitor pt before and after therapy sessions for signs of Chest pain - Fall Precaution Bed alarm TABS alarm Wheel chair alarm - Skin care per protocol - Diet - Solid Texture Continue Regular - Shower allowing shower FUNCTIONAL STATUS: UPDATED AT WEEKLY TEAM CONFERENCE - Bladder Same accident frequency: 7-Ind - No accidents in the past 7 days - Bowel Same accident frequency: 7-Ind - No accidents in the past 7 days - Walking Same score based on distance walked: 0(N/A) Same score based on distance walked: 3(>=150ft) - Wheelchair Same score based on distance traveled: 0(N/A) FUNCTIONAL STATUS: - Self-Care A. Eating Ind B. Grooming Zeynep C. Bathing modA D. Dressing - Upper Leandra E. Dressing - Lower modA F. Toileting sup - Sphincter Control G. Bladder control Zeynep H. Bowel control Zeynep - Transfers Control I. Bed/Chair/Wheelchair Ind J. Toilet modA K. Tub/Shower modA - Locomotion L. Walk/Wheelchair (B) modA M. Stairs Dep - Communication N. Comprehension (B) sup O. Expression (B) sup - Social Cognition P. Social Interaction sup Q. Problem Solving sup R. Memory sup - Endurance Poor - Balance Fair - Safety Awareness Fair QI SCORES: - Self-Care A. Eating 06-Independent B. Oral hygiene 06-Independent C. Toileting hygiene 03-Partial/moderate assistance E. Shower/bathe self 03-Partial/moderate assistance F. Upper body dressing 04-Supervision or touching assistance G. Lower body dressing 03-Partial/moderate assistance H. Putting on/taking off footwear 03-Partial/moderate assistance - Mobility A. Roll left and right 03-Partial/moderate assistance B. Sit to lying 04-Supervision or touching assistance C. Lying to sitting on side of bed 03-Partial/moderate assistance D. Sit to stand 03-Partial/moderate assistance E. Chair/[id number]-ad-[id number] transfer 03-Partial/moderate assistance F. Toilet transfer 03-Partial/moderate assistance G. Car transfer 03-Partial/moderate assistance I. Walk 10 feet 04-Supervision or touching assistance J. Walk 50 feet with two turns 04-Supervision or touching assistance K. Walk 150 feet 04-Supervision or touching assistance L. Walking 10 feet on uneven surfaces 88-Not attempted due to medical condition or safety concerns M. 1 step (curb) 88-Not attempted due to medical condition or safety concerns N. 4 steps 88-Not attempted due to medical condition or safety concerns O. 12 steps 88-Not attempted due to medical condition or safety concerns P. Picking up object 88-Not attempted due to medical condition or safety concerns R. Wheel 50 feet with two turns 09-Not applicable S. Wheel 150 feet 09-Not applicable - Bladder and Bowel Bladder continence 3-Incontinent daily Bowel continence 1-Occasionally incontinent - Endurance Fair - Balance Fair - Safety Awareness Fair CURRENT [facility]. DEFICITS: Mobility, Endurance, Balance, Safety Awareness, and Self-Care SIGNATURE PANEL: (CDT)
[2021-10-02] MEDS: lisinopriL 10 MG TAB PO SCH (19:53)
[2021-10-02] MEDS: FAMOTIDINE 20 MG TAB PO SCH (19:53)
[2021-10-02] MEDS: GABAPENTIN 100 MG CAP PO SCH (19:53)
[2021-10-02] MEDS: AMLODIPINE 5 MG TAB PO SCH (19:53)
[2021-10-02] MEDS: DOCUSATE NA/SENNA CONC 1 TAB PO SCH (19:53)
[2021-10-03 06:31] LABS: Absolute Lymphocytes (CBC) 1.6 K/uL (0.7-4.9); Lymphocytes % 28.9 % (15.3-44.8); MPV 9.2 fL (7.6-11.3); RBC Red Blood Cell Count 3.92 M/uL (3.86-4.86)
[2021-10-03] MEDS: LIDOCAINE 4% PATCH TOP SCH (06:50)
[2021-10-03] MEDS: LIDOCAINE 5% OINT 30 GM TUBE TOP PRN (06:50)
[2021-10-03 06:51] LABS: Albumin 2.5 g/dL (3.4-5.0); Magnesium 2.4 mg/dL (1.8-2.4); Potassium 4.4 mmol/L (3.5-5.1)
[2021-10-03] MEDS: CELECOXIB 100 MG CAPSULE PO SCH (07:37)
[2021-10-03] MEDS: MIRABEGRON 50 MG PO SCH (07:37)
[2021-10-03] MEDS: MEMANTINE HCL 10 MG TABLET PO SCH ×2 (07:38→19:49)
[2021-10-03] MEDS: MAGNESIUM OXIDE 400 MG TAB PO SCH ×2 (07:38→19:49)
[2021-10-03] MEDS: DULOXETINE 20 MG CAP PO SCH (07:38)
[2021-10-03] MEDS: APIXABAN 2.5 MG TABLET PO SCH ×2 (07:38→19:49)
[2021-10-03] MEDS: VITAMIN D 5,000 UNIT CAP PO SCH (07:39)
[2021-10-03] MEDS: ENSURE HIGH PROTEIN 237 ML CAN PO SCH ×3 (07:52→19:50)
--- NOTE | 2021-10-03 18:19 | R.PN ---
PROGRESS NOTES ENCOUNTER DATE AND TIME: 10/03/2021 18:15 (CDT) NAME PETE OLVERA DATE OF : 1930 DATE OF ADMISSION: 09/25/2021 16:45 (CDT) S32.10XA Unspecified fracture of sacrum, initial encounter for closed fractureCHIEF COMPLAINT: Sacrum fracture with pelvic pain SUBJECTIVE: Pt denied any Shortness of Breath. Pt denied any depression. WBC 5.5, Hgb 11.9, Plt 192, prealbumin 12.0, Ca 8.2. Language and speech therapy done with 45 to 100% accuracy. Therapeutic exercises done with standby assistance. VITAL SIGNS Temperature: 97.4 F SBP/DBP: 113/56 Pulse: 67 Resp: 16 MEDICATION ALLERGIES: No Known Drug Allergies (NKDA) ENVIRONMENTAL ALLERGIES: - Substance Allergies None Known - Other Allergies None Known NURSING: - Shower allowing shower - Skin care per protocol PRECAUTIONS: - Fall Precaution Bed alarm TABS alarm Wheel chair alarm - Incontinence Bowel Incontinence Bladder Incontinence - Bleeding Risk Eliquis - Cardiac Precaution Monitor blood pressure, heart rate, lower extremity edema, notify MD for shortness of breath or chest pain Monitor patient for excessive elevation of heart rate and blood pressure during therapy Nursing and Therapy to monitor pt before and after therapy sessions for signs of Chest pain - DVT Risk due to restricted mobility and age - Skin Breakdown Risk due to restricted mobility and age ACTIVITIES OOB only with supervision THERAPIES: - Dietary and Nutrition Adequate Nutrition. Nutritional Education. Nutritional Supplements. - Occupational Therapy Cognitive Retraining. Patient needs Occupational Therapy for a daily minimum of 1.5 hours at least 5 out of 7 days, to improve Activities of Daily Living, including: Eating, Grooming, Bathing, Dressing, Toileting, Toilet Transfers, Community Reintegration, Higher functional activities, Adaptive Equipme nt, Splinting, Household Tasks, and Other activities as determined. Visual Perceptual Training. - Speech Therapy Cognitive Training. Expressive Language Skills. Memory Strategies. Patient needs Speech Therapy for a daily minimum of 1.5 hours at least 5 out of 7 days, to improve: Swallowing, Cognition, Language Ski lls, and Compensatory Strategies. Receptive Language Skills. Speech Intelligibility Training. - Physical Therapy Patient needs Physical Therapy for a daily minimum of 1.5 hours at least 5 out of 7 days, to improve: Mobility, Strengthening, Transfers, Stretching, ROM, Endurance, Ability to manage stairs, Gait, and Balance. PHYSICAL EXAM - Gen Alert and awake Lying in bed No apparent distress Oriented to: person, time, and place - Skin No skin breakdown. Normacephalic - Eyes No abnormalities - ENMT No abnormalities - Neck No abnormalities - CVS RRR - Chest No abnormalities - Resp No wheezing - Abd Soft - GI + bowel sounds Deferred - No abnormalities - Ext Mild bilateral lower extremity edema. - MSK 4+/5 weakness in both lower extremities. - Neuro No focal deficits ASSESSMENT: Pt. is a 89 yo female of unknown race.On 09/07/2021 she was admitted to [facility] Bed with diagnos is S32.10XA Unspecified fracture of sacrum, initial encounter for closed fracture.Her impairment moiz aguiar is Orthopaedic Disorders 08 - Pelvic Fracture (08.3).Pre-morbidly, Pt. was independent/mod-I in Locomotion and Self-Care; and she had good Balance, Transfers Control, Endurance, and Safety Awarene ss.Currently, she has deficits of Locomotion, Safety Awareness, Balance, Transfers Control, and Endur ance.Pt. is now referred to [facility] for acute in-patient rehabilitation in order to maximize patient's functional independence in activities of daily living, strength, ROM, and mobility.- Rehab Goal Patient has realistic goal of being discharged at assistance level 6-Zeynep to reside at Home with Pt self. WBC 6.1, Hgb 11.5, prealbumin 17.7, UA is essentially negative, covid-19 is negativeSelf-propelled wh eelchair 500' with SBA.MDM/PLAN: - Physical Therapy Decreased range of motion - to improve, our physical therapists will perform initial evaluation of p t's status upon admission and devise an individualized program for increasing patient's Range of Alexis on. Gait dysfunction - to improve, our physical therapists will perform initial evaluation of pt's statu s upon admission and devise an individualized program for Gait Training, and Wheel Chair mobility Inability to transfer - to improve, our physical therapists will perform initial evaluation of pt's status upon admission and devise an individualized program for Bed mobility Need for home safety evaluation - to improve, our physical therapists will perform initial evaluatio n of pt's status upon admission and devise an individualized program for Home Evaluation Need in caregiver upon discharge - to improve, our physical therapists will perform initial evaluati on of pt's status upon admission and devise an individualized program for Caregiver Training New precaution - to improve, our physical therapists will perform initial evaluation of pt's status upon admission and devise an individualized program for Patient precaution education Edema - to improve, our physical therapists will perform initial evaluation of pt's status upon admi ssion and devise an individualized program for Elevation Training, and Lymphedema Therapy Poor balance - to improve, our physical therapists will perform initial evaluation of pt's status up on admission and devise an individualized program for Balance Training Poor endurance - to improve, our physical therapists will perform initial evaluation of pt's status upon admission and devise an individualized program for Endurance Training Weakness - to improve, our physical therapists will perform initial evaluation of pt's status upon a dmission and devise an individualized program for Aquatic Therapy, Neuromuscular Reeducation, and Str engthening Achieving independence - to improve, our physical therapists will perform initial evaluation of pt's status upon admission and devise an individualized program for Community Reintegration Activities - Occupational Therapy ADL deficits - to improve, our occupation therapists will perform initial evaluation of pt's status upon admission and devise an individualized program for Bathing, Bed mobility, Community Reintegratio n, Cooking, Dressing, Eating, Fine Motor Skills, Grooming, Homemaking, Kitchen Mobility, Laundry, Pat ient Education, Safety Awareness, Splinting - Positioning, Transfers(Toilet, Tub, Shower), and Wheel Chair Management Need for healthcare architect - to improve, our occupation therapists will perform initial evaluation of pt's status upon admission and devise an individualized program for Caregiver Training Weakness - to improve, our occupation therapists will perform initial evaluation of pt's status upon admission and devise an individualized program for Aquatic Therapy, Balance, Endurance, UE ROM, and UE strengthening - Other See attached MAR (Medication Administration Record) - Diet Type Continue Cardiac - Diet - Liquid Texture Continue Thin - Tube Feed Continue N/A - Incontinence Bowel Incontinence Bladder Incontinence - Bleeding Risk Eliquis - DVT Risk due to restricted mobility and age - Skin Breakdown Risk due to restricted mobility and age - Cardiac Precaution Monitor blood pressure, heart rate, lower extremity edema, notify MD for shortness of breath or ches t pain Monitor patient for excessive elevation of heart rate and blood pressure during therapy Nursing and Therapy to monitor pt before and after therapy sessions for signs of Chest pain - Fall Precaution Bed alarm TABS alarm Wheel chair alarm - Skin care per protocol - Diet - Solid Texture Continue Regular - Shower allowing shower FUNCTIONAL STATUS: UPDATED AT WEEKLY TEAM CONFERENCE - Bladder Same accident frequency: 7-Ind - No accidents in the past 7 days - Bowel Same accident frequency: 7-Ind - No accidents in the past 7 days - Walking Same score based on distance walked: 0(N/A) Same score based on distance walked: 3(>=150ft) - Wheelchair Same score based on distance traveled: 0(N/A) FUNCTIONAL STATUS: - Self-Care A. Eating Ind B. Grooming Zeynep C. Bathing modA D. Dressing - Upper Leandra E. Dressing - Lower modA F. Toileting sup - Sphincter Control G. Bladder control Zeynep H. Bowel control Zeynep - Transfers Control I. Bed/Chair/Wheelchair Ind J. Toilet modA K. Tub/Shower modA - Locomotion L. Walk/Wheelchair (B) modA M. Stairs Dep - Communication N. Comprehension (B) sup O. Expression (B) sup - Social Cognition P. Social Interaction sup Q. Problem Solving sup R. Memory sup - Endurance Poor - Balance Fair - Safety Awareness Fair QI SCORES: - Self-Care A. Eating 06-Independent B. Oral hygiene 06-Independent C. Toileting hygiene 03-Partial/moderate assistance E. Shower/bathe self 03-Partial/moderate assistance F. Upper body dressing 04-Supervision or touching assistance G. Lower body dressing 03-Partial/moderate assistance H. Putting on/taking off footwear 03-Partial/moderate assistance - Mobility A. Roll left and right 03-Partial/moderate assistance B. Sit to lying 04-Supervision or touching assistance C. Lying to sitting on side of bed 03-Partial/moderate assistance D. Sit to stand 03-Partial/moderate assistance E. Chair/jrx-jf-lniwk transfer 03-Partial/moderate assistance F. Toilet transfer 03-Partial/moderate assistance G. Car transfer 03-Partial/moderate assistance I. Walk 10 feet 04-Supervision or touching assistance J. Walk 50 feet with two turns 04-Supervision or touching assistance K. Walk 150 feet 04-Supervision or touching assistance L. Walking 10 feet on uneven surfaces 88-Not attempted due to medical condition or safety concerns M. 1 step (curb) 88-Not attempted due to medical condition or safety concerns N. 4 steps 88-Not attempted due to medical condition or safety concerns O. 12 steps 88-Not attempted due to medical condition or safety concerns P. Picking up object 88-Not attempted due to medical condition or safety concerns R. Wheel 50 feet with two turns 09-Not applicable S. Wheel 150 feet 09-Not applicable - Bladder and Bowel Bladder continence 3-Incontinent daily Bowel continence 1-Occasionally incontinent - Endurance Fair - Balance Fair - Safety Awareness Fair [facility] DEFICITS: Mobility, Endurance, Balance, Safety Awareness, and Self-Care SIGNATURE PANEL: (CDT)
[2021-10-03] MEDS: GABAPENTIN 100 MG CAP PO SCH (19:48)
[2021-10-03] MEDS: AMLODIPINE 5 MG TAB PO SCH (19:48)
[2021-10-03] MEDS: DOCUSATE NA/SENNA CONC 1 TAB PO SCH (19:49)
[2021-10-03] MEDS: DONEPEZIL HCL 5 MG TAB PO SCH (19:49)
[2021-10-03] MEDS: lisinopriL 10 MG TAB PO SCH (19:49)
[2021-10-03] MEDS: FAMOTIDINE 20 MG TAB PO SCH (19:49)
--- NOTE | 2021-10-04 00:40 | PN ---
Date of Progress Note: 10/03/2021 Subjective: The patient was seen this morning for followup. No new complaints problems reported by patient lying in bed, not in distress. Objective: Vital Signs: Reviewed. HEENT: Unremarkable. Lungs: Clear to auscultation. Heart: Heart sounds normal. Abdomen: Soft, bowel sounds normal. No guarding, rigidity, tenderness, or distention. Extremities: No leg edema. Impression: 1.Insufficiency fracture of sacrum. 2.Hypertension. 3.Senile dementia. 4.Hyperlipidemia. 5.Osteoarthritis, multiple sites. Plan: We will continue current medications. Continue current DVT prophylaxis. Antihypertensive med ication. Continue pain medication per order and physical therapy to be provided under guidance of Dr Jocelyne Bee. The patient is scheduled to go home possible day after tomorrow. JOSE/MODL Voice ID: [id number] Report ID: [id number]
[2021-10-04] MEDS: MAGNESIUM OXIDE 400 MG TAB PO SCH ×2 (07:33→20:26)
[2021-10-04] MEDS: MIRABEGRON 50 MG PO SCH (07:33)
[2021-10-04] MEDS: APIXABAN 2.5 MG TABLET PO SCH ×2 (07:34→20:27)
[2021-10-04] MEDS: VITAMIN D 5,000 UNIT CAP PO SCH (07:34)
[2021-10-04] MEDS: DULOXETINE 20 MG CAP PO SCH (07:34)
[2021-10-04] MEDS: MEMANTINE HCL 10 MG TABLET PO SCH ×2 (07:34→20:27)
[2021-10-04] MEDS: CELECOXIB 100 MG CAPSULE PO SCH (07:34)
[2021-10-04] MEDS: ENSURE HIGH PROTEIN 237 ML CAN PO SCH ×3 (07:34→20:27)
--- NOTE | 2021-10-04 09:39 | P.RH.PN ---
Estimated Length of Stay: 10 Expected Discharge Date: 10/05/21 Discharge Disposition Plan: Home Family Support: Yes Nursing Home Goal: Mobility, Transfers, Self Care Vital Signs: Last Vital Signs Temp 98.2 F 10/04/21 08:58 Pulse 62 10/04/21 08:58 Resp 18 10/04/21 08:58 BP 109/51 L 10/04/21 08:58 Pulse Ox 96 10/04/21 08:58 Laboratory: Laboratory Last Values WBC 5.5 K/uL (4.3-10.9) 10/03/21 06:05 RBC 3.92 M/uL (3.86-4.86) 10/03/21 06:05 Hgb 11.9 g/dL (12.0-15.0) L 10/03/21 06:05 Hct 35.0 % (36.0-45.0) L 10/03/21 06:05 MCV 89.2 fL (80-100) 10/03/21 06:05 MCH 30.5 pg (27.0-35.0) 10/03/21 06:05 MCHC 34.2 g/dL (32.0-36.0) 10/03/21 06:05 RDW 13.3 % (12.1-15.2) 10/03/21 06:05 Plt Count 192 K/uL (152-406) 10/03/21 06:05 MPV 9.2 fL (7.6-11.3) 10/03/21 06:05 Neutrophils % 53.4 % (41.7-73.7) 10/03/21 06:05 Lymphocytes % 28.9 % (15.3-44.8) 10/03/21 06:05 Monocytes % 11.2 % (3.3-12.3) 10/03/21 06:05 Eosinophils % 5.2 % (0-4.4) H 10/03/21 06:05 Basophils % 1.3 % (0-1.3) 10/03/21 06:05 Absolute Neutrophils 3.0 K/uL (1.8-8.0) 10/03/21 06:05 Absolute Lymphocytes 1.6 K/uL (0.7-4.9) 10/03/21 06:05 Absolute Monocytes 0.6 K/uL (0.1-1.3) 10/03/21 06:05 Absolute Eosinophils 0.3 K/uL (0-0.5) 10/03/21 06:05 Absolute Basophils 0.1 K/uL (0-0.5) 10/03/21 06:05 Sodium 139 mmol/L (136-145) 10/03/21 06:00 Potassium 4.4 mmol/L (3.5-5.1) 10/03/21 06:00 Chloride 110 mmol/L (98-107) H 10/03/21 06:00 Carbon Dioxide 25 mmol/L (21-32) 10/03/21 06:00 Anion Gap 8.4 mEq/L (5.0-15.0) 10/03/21 06:00 BUN 27 mg/dL (7-18) H 10/03/21 06:00 Creatinine 0.92 mg/dL (0.55-1.3) 10/03/21 06:00 Est GFR (CKD-EPI) 60 ml/min (=/>90) L 10/03/21 06:00 Glucose 96 mg/dL (74-106) 10/03/21 06:00 Calcium 8.8 mg/dL (8.5-10.1) 10/03/21 06:00 Magnesium 2.4 mg/dL (1.8-2.4) 10/03/21 06:00 Albumin 2.5 g/dL (3.4-5.0) L 10/03/21 06:00 Prealbumin 12.0 mg/dL (20-40) L 10/03/21 06:00 Urine Color Yellow (Yellow) 09/26/21 05:41 Urine Appearance Clear (Clear) 09/26/21 05:41 Urine pH 5.5 (5.0-7.0) 09/26/21 05:41 Ur Specific [place] 1.010 (1.005-1.030) 09/26/21 05:41 Glucose (UA)(Auto) Negative (Negative) 09/26/21 05:41 Urine Ketones Negative (Negative) 09/26/21 05:41 Urine Blood Trace-intact (Negative) H 09/26/21 05:41 Urine Nitrite Negative (Negative) 09/26/21 05:41 Urine Bilirubin Negative (Negative) 09/26/21 05:41 Urine Urobilinogen 0.2 mg/dL (0.2-1.0) 09/26/21 05:41 Ur Leukocyte Esterase Negative (Negative) 09/26/21 05:41 Urine RBC <5 /HPF (NONE SEEN) 09/26/21 05:41 Urine WBC <5 /HPF (<5) 09/26/21 05:41 Ur Squamous Epith Cells <5 /HPF (NONE SEEN) 09/26/21 05:41 Ur Urothelial Cells Cancelled 09/26/21 04:15 Calcium Oxalate Crystal Cancelled 09/26/21 04:15 Uric Acid Crystals Cancelled 09/26/21 04:15 Triple Phos Crystals Cancelled 09/26/21 04:15 Other Crystals Cancelled 09/26/21 04:15 Amorphous Sediment Cancelled 09/26/21 04:15 Glitter Cells Cancelled 09/26/21 04:15 Urine Bacteria <20 /HPF (<20) 09/26/21 05:41 Hyaline Casts Cancelled 09/26/21 04:15 Fine Granular Casts Cancelled 09/26/21 04:15 Coarse Granular Casts Cancelled 09/26/21 04:15 Waxy Casts Cancelled 09/26/21 04:15 RBC Casts Cancelled 09/26/21 04:15 WBC Casts Cancelled 09/26/21 04:15 Urine Mucus Cancelled 09/26/21 04:15 Urine Other Cancelled 09/26/21 04:15 Urine Trichomonas Cancelled 09/26/21 04:15 Urine Yeast Cancelled 09/26/21 04:15 Ur Yeast w Hyphae Cancelled 09/26/21 04:15 Urine Yeast (Budding) Cancelled 09/26/21 04:15 Urine Sperm Cancelled 09/26/21 04:15 Urine Culture Reflexed Not needed 09/26/21 05:41 Urine Total Volume Cancelled 09/26/21 04:15 Urine Total Protein Negative (Negative) 09/26/21 05:41 SARS-CoV-2 Rap RNA(RT-PCR) Negative (NEGATIVE) 10/02/21 04:44 Weight: 159 lb 14.4 oz Wound Present: No Closed Surgical Incision Present: No Negative Pressure Wound Therapy Present: No Physician Update: Labs reviewed. Bed mobility, sit to stand min assistance. Transfering CGA, 250' with rolling walker, need queing. Knee pain when walking. Back pain with sit to stand. Grooming, bathing, upper, lower dressing, toileting is a standby assistance. To be discharged home in the AM. Functional Improvement: Patient presents w/ plesant demeanor and attitude toward therapy, however becomes easily distracted. Patient will continue to work toward progressing and achieving goals. 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 Please see the Rehabilitation Signature page for all necessary signatures.
[2021-10-04] MEDS: LIDOCAINE 4% PATCH TOP SCH (12:42)
[2021-10-04] MEDS: AMLODIPINE 5 MG TAB PO SCH (20:26)
[2021-10-04] MEDS: lisinopriL 10 MG TAB PO SCH (20:26)
[2021-10-04] MEDS: GABAPENTIN 100 MG CAP PO SCH (20:26)
[2021-10-04] MEDS: DOCUSATE NA/SENNA CONC 1 TAB PO SCH (20:27)
[2021-10-04] MEDS: DONEPEZIL HCL 5 MG TAB PO SCH (20:27)
[2021-10-04] MEDS: FAMOTIDINE 20 MG TAB PO SCH (20:27)
[2021-10-05] MEDS: APIXABAN 2.5 MG TABLET PO SCH (07:16)
[2021-10-05] MEDS: MIRABEGRON 50 MG PO SCH (07:50)
[2021-10-05] MEDS: VITAMIN D 5,000 UNIT CAP PO SCH (07:51)
[2021-10-05] MEDS: MEMANTINE HCL 10 MG TABLET PO SCH (07:51)
[2021-10-05] MEDS: DULOXETINE 20 MG CAP PO SCH (07:51)
[2021-10-05] MEDS: CELECOXIB 100 MG CAPSULE PO SCH (07:51)
[2021-10-05] MEDS: MAGNESIUM OXIDE 400 MG TAB PO SCH (07:52)
[2021-10-05] MEDS: LIDOCAINE 4% PATCH TOP SCH (07:53)
[2021-10-05] MEDS: ENSURE HIGH PROTEIN 237 ML CAN PO SCH (07:54)
[2021-10-05 08:27] VITALS: BP 106/50; TEMP 98.2
--- NOTE | 2021-10-05 13:29 | DS ---
Date of Discharge: 10/05/2021 Disposition: Discharged to go to [facility]. Physical Examination: HEENT: Unremarkable. Lungs: Clear to auscultation. Heart: Sounds normal. Abdomen: Soft. Bowel sounds normal. No guarding, rigidity, tenderness, or distention. Extremities: No leg edema. Discharge Medications And Instructions: 1.Tylenol 500 mg 3 times a day as needed for pain. 2.Senokot-S 2 tablets by mouth 2 times a day as needed for constipation. 3.Celebrex 200 mg by mouth 2 times a day, take it with food. 4.Donepezil 10 mg, take 1 tablet by mouth daily at bedtime. 5.Famotidine 40 mg by mouth daily at bedtime. 6.Lisinopril 20 mg by mouth daily at bedtime. 7.Amlodipine 5 mg by mouth daily in the morning. 8.Memantine 10 mg, take by mouth 2 times a day. 9.Myrbetriq 50 mg by mouth daily. 10.Duloxetine 20 mg by mouth daily. 11.Vitamin D3 1000 units daily. 12.Lidocaine 4% patch, apply 1 patch to lower back in the morning, take it off in the evening time. 13.Follow up at my office next week on , which is 10/10/2021. 14.Drink about 50-ounce water daily. Laboratory Data: Initial blood work on 09/26/2021; white count 6.1, hemoglobin 11.5, platelets 235 [address] nd on 10/03/2021; white count 5.5, hemoglobin 11.9, platelets 192. Initial sodium 142, potassium 3.9 , chloride 115, bicarb 22, BUN 27, creatinine 0.90, glucose 87, and on 10/03/2021; sodium 139, potass ium 4.4, chloride 110, bicarb 25, BUN 27, creatinine 0.92, glucose 96, serum albumin 2.5. Final Diagnoses: 1.Insufficiency fracture of sacrum. 2.Osteoporosis. 3.Osteoarthritis, multiple sites. 4.Lumbar spondylosis. 5.Hypertension. 6.Hyperlipidemia. 7.Senile dementia. 8.Gastroesophageal reflux disease. 9.Diverticulosis. 10.Malnutrition, moderate. Hospital Course: This is an 89-year-old very pleasant female patient, [facility] for further rehab therapy. Please see dictated H and P for more information. Afte r she was admitted to the hospital, Dr. Bee managed her rehab therapy and the patient participat ed well with physical therapy and overall her condition improved. She received Celebrex and Tylenol. She has not used narcotic pain medication. Last time, she used hydrocodone, was 4 days ago, so kaleigh lly she does not need to go home with any hydrocodone prescription. Overall, her back pain has impro smiley and she is ambulating well with physical therapy using her walker. I did advise her to drink 50- 60 ounce of water a day, change position slowly in order for her to reduce chances of fall and injury . The patient was discharged today to go back to [facility] in a stabl e condition. JOSE/WENCESLAOL Voice ID: [id number] Report ID: [id number]
== END 2021-10-05 12:15 | disposition home health service (06) | DRG 560 ==
LOC: 5TH 09-25 16:51
PROVIDERS: ADMIT Internal Medicine; ATTEND Internal Medicine
DX: S32.10XD Unspecified fracture of sacrum, subsequent encounter for fracture with routine healing (principal); E44.0 Moderate protein-calorie malnutrition; I48.91 Unspecified atrial fibrillation; I10 Essential (primary) hypertension; M19.90 Unspecified osteoarthritis, unspecified site; M81.0 Age-related osteoporosis without current pathological fracture; M47.816 Spondylosis without myelopathy or radiculopathy, lumbar region; E78.5 Hyperlipidemia, unspecified; F03.90 Unspecified dementia, unspecified severity, without behavioral disturbance, psychotic disturbance, mood disturbance, and anxiety; K21.9 Gastro-esophageal reflux disease without esophagitis; K57.90 Diverticulosis of intestine, part unspecified, without perforation or abscess without bleeding; Z68.27 Body mass index [BMI] 27.0-27.9, adult; M25.532 Pain in left wrist; N32.81 Overactive bladder; M54.9 Dorsalgia, unspecified; D64.9 Anemia, unspecified; Z20.822 Contact with and (suspected) exposure to COVID-19
CPT/HCPCS: 36415; 80048; 81003; 81015; 82040; 83735; 84134; 85025; 87086; 87088; 92507; 92523; 97110; 97116; 97129; 97130; 97161; 97165; 97530; 97542; J2001; U0003